=== PATIENT | male | born 1980 | race Caucasian/White ===

== ENCOUNTER → 2018-02-12 | Outpatient (CLI) | payer BC ==
--- NOTE | 2018-02-12 20:07 | REP ---
Clinical: Acute cough . Comparison: None . Technique: PA and lateral. Findings: The mediastinum and cardiac silhouette are normal. The lung youssef are clear and without acute consolidation, effusion, or pneumothorax. The skeletal structures are intact and normal. Impression: 1. No acute cardiopulmonary process. Electronically Signed by Jorge Guerrero MD 02/12/2018 07:58 P
== END ==
LOC: M WUC 19:27
PROVIDERS: ATTEND Physician Assistant
DX: J02.9 Acute pharyngitis, unspecified (principal); R05 Cough

== ENCOUNTER → 2018-02-13 | Outpatient (CLI) | payer BC ==
[2018-02-13 19:15] LABS: BASO % 0.2 % (0.0-1.0); HEMATOCRIT 47.6 % (42.0-52.0); LYMPH # 1.8 10^3/uL (1.5-4.5); LYMPH % 14.4 % (24.0-44.0); MEAN CORPUSCULAR HEMOGLOBIN 31.3 pg (27.0-33.0); MEAN CORPUSCULAR HGB CONC 33.6 g/dl (32.0-36.5); MONO # 0.7 10^3/uL (0.0-0.8); MONO % 5.4 % (0.0-5.0); NEUTROPHILS # 10.1 10^3/uL (1.8-7.7); NEUTROPHILS % 79.6 % (36.0-66.0); PLATELET COUNT, AUTOMATED 234 10^3/uL (150-450); RED BLOOD COUNT 5.12 10^6/uL (4.30-6.10); WHITE BLOOD COUNT 12.7 10^3/uL (4.0-10.0)
[2018-02-13 19:27] LABS: ALBUMIN 4.1 GM/DL (3.2-5.2); ALT/SGPT 42 U/L (12-78); BILIRUBIN,TOTAL 0.4 MG/DL (0.2-1.0); BLOOD UREA NITROGEN 10 MG/DL (7-18); CALCIUM LEVEL 8.7 MG/DL (8.5-10.1); CARBON DIOXIDE LEVEL 27 MEQ/L (21-32); CHLORIDE LEVEL 106 MEQ/L (98-107); CREATININE FOR GFR 0.75 MG/DL (0.70-1.30); GLOMERULAR FILTRATION RATE > 60.0 (>60); GLUCOSE, FASTING 93 MG/DL (70-100); POTASSIUM SERUM 4.5 MEQ/L (3.5-5.1); SODIUM LEVEL 140 MEQ/L (136-145); TOTAL PROTEIN 7.8 GM/DL (6.4-8.2)
== END ==
LOC: M WUC 17:41
PROVIDERS: ATTEND Physician Assistant
DX: R05 Cough (principal)

== ENCOUNTER → 2018-04-12 | Outpatient (CLI) | payer BC ==
[2018-04-12 18:10] LABS: ALBUMIN 3.9 GM/DL (3.2-5.2); ALT/SGPT 43 U/L (12-78); BILIRUBIN,TOTAL 0.5 MG/DL (0.2-1.0); BLOOD UREA NITROGEN 15 MG/DL (7-18); C REACTIVE PROTEIN QUANTITATIV 0.42 MG/DL (0.00-0.30); CALCIUM LEVEL 8.2 MG/DL (8.5-10.1); CARBON DIOXIDE LEVEL 28 MEQ/L (21-32); CHLORIDE LEVEL 103 MEQ/L (98-107); CHOLESTEROL LEVEL 205 MG/DL (<200); CHOLESTEROL RISK RATIO 6.029 (<5); CREATININE FOR GFR 0.91 MG/DL (0.70-1.30); GLOMERULAR FILTRATION RATE > 60.0 (>60); GLUCOSE, FASTING 94 MG/DL (70-100); HDL CHOLESTEROL 34 MG/DL (>40); LDL CHOLESTEROL 127 MG/DL (<100); NON-HDL-C 171 MG/DL; POTASSIUM SERUM 4.4 MEQ/L (3.5-5.1); SODIUM LEVEL 139 MEQ/L (136-145); THYROID STIMULATING HORMONE 0.391 uIU/ML (0.358-3.740); TOTAL PROTEIN 7.2 GM/DL (6.4-8.2); TRIGLYCERIDES LEVEL 218 MG/DL (<150)
[2018-04-12 19:00] LABS: BASO # 0.1 10^3/uL (0.0-0.2); BASO % 1.3 % (0.0-1.0); EOS # 0.1 10^3/uL (0.0-0.50); EOS % 1.1 % (0.0-3.0); HEMATOCRIT 47.6 % (42.0-52.0); HEMOGLOBIN 15.7 g/dl (13.5-17.5); LYMPH # 1.5 10^3/uL (1.5-4.5); LYMPH % 23.3 % (24.0-44.0); MEAN CORPUSCULAR HEMOGLOBIN 30.8 pg (27.0-33.0); MEAN CORPUSCULAR VOLUME 93.3 fl (80.0-96.0); MONO # 0.4 10^3/uL (0.0-0.8); MONO % 6.3 % (0.0-5.0); NEUTROPHILS # 4.4 10^3/uL (1.8-7.7); NEUTROPHILS % 67.8 % (36.0-66.0); PLATELET COUNT, AUTOMATED 206 10^3/uL (150-450); WHITE BLOOD COUNT 6.4 10^3/uL (4.0-10.0)
[2018-04-15 14:15] LABS: ANTINUCLEAR ANTIBODIES DIRECT Negative (Negative); Lyme Disease IgG/IgM Antibodie <0.91 ISR (0.00-0.90); Lyme Disease IgM Ab Quantitati <0.80 index (0.00-0.79); TISSUE TRANSGLUTAMINASE IgA <2 U/mL (0-3); TISSUE TRANSGLUTAMINASE IgG <2 U/mL (0-5)
== END ==
LOC: M WUC 10:09
PROVIDERS: ATTEND Physician Assistant
DX: M79.7 Fibromyalgia (principal); K58.2 Mixed irritable bowel syndrome; I10 Essential (primary) hypertension

== ENCOUNTER → 2018-05-28 | Outpatient (CLI) | payer BC ==
--- NOTE | 2018-06-02 17:34 | SLEEPHOME ---
DATE OF PROCEDURE: 05/28/2018 ORDERED BY: [facility] home sleep testing was performed due to concern for the obstructive sleep apnea syndrome. For testing, a nocturnal T3 respiratory monitoring device was used. Continuous record was made of pulse, oxygen saturation, airflow, chest, abdominal strain and body position. 9 hours and 59 minutes data were reviewed. There were 6 hours and 20 minutes marked as time in bed. During the interval marked time in bed, there were 33 respiratory events identified of 10 seconds in duration or greater for a respiratory event index of 5.2. The events were obstructive, primarily hypopneic. Baseline pulse rate 96 beats per minute, pulse rate ranged from 70 to 127. Baseline saturation measured 89%, saturations fell to 78% and the oxygen desaturation index was 4.6. Testing was performed in both the supine and nonsupine positions. IMPRESSION: Abnormal home sleep testing with repetitive respiratory events and oxygen desaturations to 78% with a respiratory event index of 5.2 is consistent with the obstructive sleep apnea syndrome. RECOMMENDATIONS: As the events were not postural and as home testing can underestimate the severity of the disease, referral for a formal sleep evaluation and in laboratory pressure titration is recommended.
== END ==
LOC: M SLEEP HO 13:00
PROVIDERS: ATTEND Nurse Practitioner Adult Health
DX: G47.30 Sleep apnea, unspecified (principal)

== ENCOUNTER → 2018-08-02 | Outpatient (CLI) | payer BC ==
[2018-08-02 14:00] LABS: BASO # 0.1 10^3/uL (0.0-0.2); EOS # 0.1 10^3/uL (0.0-0.50); EOS % 2.1 % (0.0-3.0); HEMATOCRIT 44.1 % (42.0-52.0); HEMOGLOBIN 14.7 g/dl (13.5-17.5); LYMPH # 1.4 10^3/uL (1.5-4.5); LYMPH % 22.9 % (24.0-44.0); MEAN CORPUSCULAR HEMOGLOBIN 30.8 pg (27.0-33.0); MEAN CORPUSCULAR HGB CONC 33.3 g/dl (32.0-36.5); MEAN CORPUSCULAR VOLUME 92.5 fl (80.0-96.0); MONO # 0.5 10^3/uL (0.0-0.8); MONO % 7.8 % (0.0-5.0); NEUTROPHILS # 4.1 10^3/uL (1.8-7.7); PLATELET COUNT, AUTOMATED 210 10^3/uL (150-450); RED BLOOD COUNT 4.77 10^6/uL (4.30-6.10); WHITE BLOOD COUNT 6.3 10^3/uL (4.0-10.0)
[2018-08-02 14:17] LABS: HEMOGLOBIN A1c 5.5 %
[2018-08-02 14:21] LABS: ALBUMIN 3.7 GM/DL (3.2-5.2); ALT/SGPT 60 U/L (12-78); BILIRUBIN,TOTAL 0.4 MG/DL (0.2-1.0); BLOOD UREA NITROGEN 10 MG/DL (7-18); CALCIUM LEVEL 8.6 MG/DL (8.5-10.1); CARBON DIOXIDE LEVEL 29 MEQ/L (21-32); CHLORIDE LEVEL 103 MEQ/L (98-107); CHOLESTEROL LEVEL 186 MG/DL (<200); CHOLESTEROL RISK RATIO 4.769 (<5); GLOMERULAR FILTRATION RATE > 60.0 (>60); GLUCOSE, FASTING 93 MG/DL (70-100); HDL CHOLESTEROL 39 MG/DL (>40); LDL CHOLESTEROL 79 MG/DL (<100); NON-HDL-C 147 MG/DL; POTASSIUM SERUM 4.6 MEQ/L (3.5-5.1); SODIUM LEVEL 138 MEQ/L (136-145); TRIGLYCERIDES LEVEL 341 MG/DL (<150)
== END ==
LOC: M WUC 09:27
PROVIDERS: ATTEND Physician Assistant
DX: E78.2 Mixed hyperlipidemia (principal)

== ENCOUNTER → 2018-11-05 | Outpatient (CLI) | payer BC ==
--- NOTE | 2018-11-15 01:09 | ECWPNPC ---
PATIENT NAME: BROCK ARTEAGA : 1980 GENDER: MALE VISIT DATE: 11/05/2018 DISCHARGE DATE: 11/05/18 1636 VISIT LOCKED DATE TIME: PHYSICIAN: ETHAN MURILLO MD RESOURCE: ETHAN MURILLO MD REASON FOR APPOINTMENT 1. SPINAL TAP PRE-OP HISTORY OF PRESENT ILLNESS PAIN SCREENING: PATIENT HAS A COMPLAINT OF ACUTE OR CHRONIC PAIN :YES 38 YEAR OLD MALE PATIENT WITH A HISTORY OF NEUROLOGICAL CHANGES. THE PATIENT STATES HE HAS BEEN EXPERIENCING HIS SYMPTOMS FOR THE LAST FEW YEARS. THE PATIENT WAS REFERRED TO US BY DR. ARREGUIN FOR A SPINAL TAP AND IS HERE TODAY FOR A PRE SEDATION PHYSICAL. , PATIENT DENIES UNEXPLAINABLE WEIGHT LOSS, FEVER, CHILLS, NEW CHANGES ON HIS URINARY OR BOWEL CONTROL. FALL RISK SCREENING: SCREENING :NO FALLS REPORTED IN THE LAST YEAR CURRENT MEDICATIONS TAKING GABAPENTIN 100 MG CAPSULE 1 CAPSULE ORALLY ONCE A DAY TAKING WELLBUTRIN TAKING IMIPRAMINE HCL 10 MG TABLET 1 TABLET ORALLY ONCE A DAY TAKING LAMOTRIGINE 100 MG TABLET 1 TABLET ORALLY ONCE A DAY TAKING TRAZODONE HCL 100 MG TABLET 1 TABLET AT BEDTIME ORALLY ONCE A DAY TAKING SEROQUEL 200 MG TABLET 1 TABLET AT BEDTIME ORALLY ONCE A DAY TAKING STRATTERA 40 MG CAPSULE 1 CAPSULE IN THE MORNING ORALLY ONCE A DAY TAKING PRAZOSIN HCL 5 MG CAPSULE 1 CAPSULE AT BEDTIME ORALLY ONCE A DAY TAKING CIALIS 10 MG TABLET 1 TABLET NEEDED ORALLY TAKING HYDROCODONE-ACETAMINOPHEN 5-325 MG TABLET 1 TABLET NEEDED ORALLY EVERY 6 HRS TAKING ATIVAN 2 2MG TABLET ORAL TAKING MULTIVITAMIN ADULTS 50+ - TABLET DIRECTED ORALLY TAKING ASPIRIN 81 81 MG TABLET DELAYED RELEASE 1 TABLET ORALLY ONCE A DAY TAKING LOSARTAN POTASSIUM 50 MG TABLET DIRECTED ORALLY TAKING PRAVASTATIN SODIUM 40 MG TABLET 1 TABLET ORALLY ONCE A DAY MEDICATION LIST REVIEWED AND RECONCILED WITH THE PATIENT PAST MEDICAL HISTORY URI ON CPAP ANXIETY DEPRESSION INSOMNIA PTSD ADD HTN DYSLIPIDEMIA MIGRAINE ALLERGIES N.K.D.A. SURGICAL HISTORY DENIES PAST SURGICAL HISTORY FAMILY HISTORY FATHER: ALIVE, DIAGNOSED WITH HYPERTENSION MOTHER: , DIABETES 5 BROTHER(S) , 5 SISTER(S) . FATHER-LEUKEMIA. SOCIAL HISTORY GENERAL: TOBACCO USE ARE YOU A:FORMER SMOKER HOW LONG HAS IT BEEN SINCE YOU LAST SMOKED?3-6 MONTHS PAIN CLINIC PFS, CLERGY, PUBLIC HEALTH REFERRALS HAS THE PATIENT BEEN EDUCATED REGARDING HIS/HER PLAN OF CARE?YES HAS THE PATIENT BEEN EDUCATED REGARDING PAIN, THE RISK FOR PAIN, THE IMPORTANCE OF EFFECTIVE PAIN MANAGEMENT, AND THE PAIN ASSESSMENT PROCESS?YES ADVANCE DIRECTIVE ADVANCE DIRECTIVE DISCUSSED WITH PATIENT:YES DECLINED EPISCOPAL [id number] RESTORATIONISM LANGUAGE LANGUAGES SPOKEN:LUXEMBOURGISH LEARNING BARRIERS / SPECIAL NEEDS BARRIERS TO LEARNING?NO HEARING IMPAIRED?NO VISION IMPAIRED?YES :CORRECTIVE LENSES COGNITIVELY IMPAIRED?NO READINESS TO LEARN?YES LEARNING PREFERENCES?NO LEARNING CAPABILITIES PRESENT?YES EMOTIONAL BARRIERS?NO SPECIAL DEVICES?NO HOSPITALIZATION/MAJOR DIAGNOSTIC PROCEDURE DENIES PAST HOSPITALIZATION REVIEW OF SYSTEMS REVIEWED BY: PROVIDER: ETHAN MURILLO MD . CONSTITUTIONAL: ANY CHANGE IN YOUR MEDICAL CONDITION? NO . CHILLS NO . FEVER NO . INFECTION: DO YOU HAVE NEW INFECTIONS? NO . DO YOU HAVE HISTORY OF MRSA? NO . MUSCULOSKELETAL: ANY NEW PATTERNS OF PAIN OR NUMBNESS? YES, PAIN IS 9/10 TO BACK . SYTEMIC LUPUS NO . GASTROENTEROLOGY: ANY NEW CHANGE IN BOWEL CONTROL? YES, PT C/O BLOODY DIARRHEA AND CONSTIPATION ,PCP IS AWARE . BARRETTS ESOPHAGUS NO . CIRRHOSIS NO . HEPATITIS NO . LIVER FAILURE NO . ACID REFLUX NO . UNEXPLAINED WEIGHT LOSS NO . GENITOURINARY: ANY NEW CHANGE IN BLADDER CONTROL? NO . IS THERE A CHANCE YOU COULD BE ? NO . HEMATOLOGY/LYMPH: DO YOU TAKE ANY BLOOD THINNERS? (FOR EXAMPLE- COUMADIN, PLAVIX, AGGRENOX, PLATEL, PRADAXA, OR XARELTO) NO . WHEN WAS YOUR LAST DOSE? DATE: TIME: . LOW PLATELET COUNT NO . SICKLE CELL DISEASE NO . VON WILLIEBRANDS NO . FACTOR V LEIDEN NO . THALLASEMIA NO . ANEMIA NO . EASY BRUISING NO . NEUROLOGY: HAVE YOU FALLEN IN THE PAST 12 MONTHS? YES, PT FELL MODAY FROM LOSS OF BALANCE, PT DENIES INJURIES . ANY NEW EXTREMITY NUMBNESS OR WEAKNESS? YES, BILAT FINGERS AND TOES NUMB . HEAD INJURY NO . DEMENTIA NO . CEREBRAL PALSY NO . MULTIPLE SCLEROSIS NO . DIZZINESS NO . HEADACHE NO . STROKES NO . VERTIGO NO . CARDIOLOGY: DO YOU HAVE A PACEMAKER OR DEFIBRILLATOR? NO . ANGINA NO . HEART ATTACK NO . HEART SURGERY NO . CONGESTIVE HEART FAILURE/FLUID OVERLOAD NO . CHEST PAIN NO . HIGH BLOOD PRESSURE NO . IRREGULAR HEART BEAT NO . RESPIRATORY: HAVE YOU BEEN SICK IN THE PAST WEEK? NO . FEVER NO . FLU LIKE SYMPTOMS? NO . CPAP NO . BYPAP NO . ASTHMA NO . EMPHYSEMA NO . CHRONIC LUNG DISEASES NO . SHORTNESS OF BREATH ON EXERTION NO . COUGH NO . SNORING NO . INTEGUMENTARY: DO YOU HAVE ANY RASHES OR OPEN SORES? NO . ALLERGIC/IMMUNO: ARE YOU ALLERGIC TO IV DYE? NO . ANY NEW ALLERGIES? NO . PSYCHIATRIC: DO YOU HAVE THOUGHTS OF HURTING YOURSELF OR SOMEONE ELSE? NO . ARE YOU ABUSED, NEGLECTED, OR IN AN UNSAFE ENVIRONMENT? NO . ENDOCRINOLOGY: ARE YOU DIABETIC? NO . THYROID DISORDER NO . OTHER: DO YOU NEED ANY PRESCRIPTIONS? YES, HYDROCODONE . IF YES, PLEASE LIST: ____ . ANY NEW PROBLEMS WITH YOUR MEDICATIONS? NO . WHEN DID YOU LAST EAT? ____ . WHEN DID YOU LAST DRINK? ____ . WHAT DID YOU LAST DRINK? ____ . NAME OF PERSON DRIVING YOU HOME? ____ . DO YOU HAVE ANY OTHER QUESTIONS OR CONCERNS NO . VITAL SIGNS WT 318.4 LBS, HT 68 IN, BMI 48.41 INDEX, BP 135/85 MM HG, HR 120 /MIN, RR 18 /MIN, TEMP 97.6 F, OXYGEN SAT % 96%, NA INITIALS AW 1521, REVIEWED BY: EM. EXAMINATION GENERAL EXAMINATION: PATIENT IS ALERT O X 3 AND COOPERATIVE. LUNGS CLEAR, TO AUSCULTATION. HEART: NO MURMURS OR GALLOPS; FACIAL CRANIAL NERVES ARE GROSSLY NORMAL. GOOD SYMMETRY OF FACIAL MUSCLE MOVEMENT. NORMAL VISUAL DE [place]. LEFT LEG IS WEAKER AT EXTENSION AND FLEXION. ANTALGIC GAIT. NOTES FROM DR. ARREGUIN IS IN THE PATIENT'S CHART. ASSESSMENTS NEUROLOGICAL SYMPTOMS - R29.90 (PRIMARY) TREATMENT NEUROLOGICAL SYMPTOMS CLINICAL NOTES: WE DISCUSSED SEVERAL ISSUES WITH MR. ARTEAGA'S CASE. THE PATIENT WILL COME IN FOR A SPINAL TAP IN THE NEXT FEW WEEKS. WE DISCUSSED THE BENEFITS AND RISKS OF THE PROCEDURE AND THE PATIENT WOULD LIKE TO PROCEED. INSTRUCTIONS WERE GIVEN, QUESTIONS WERE ANSWERED, PATIENT REPORTS UNDERSTANDING AND AGREES WITH THE PLAN. I, MADISYN LOPES, DOCUMENTED THE ABOVE INFORMATION ACTING A SCRIBE FOR DR. MURILLO. I HAVE REVIEWED THE ABOVE DOCUMENT, WRITTEN BY MADISYN RAHMAN AND I VERIFY THAT IT IS ACCURATE. . PROCEDURE CODES FA211 ESTABILISHED PATIENT [facility] FACILITY CHARGE Q6647 CURRENT MEDS W/DOSAGES DOCUMENTED [id number] PAIN ASSESS POS TOOL F/U PLAN DOC DISPOSITION & COMMUNICATION FOLLOW UP 3 WEEKS ELECTRONICALLY SIGNED BY ETHAN MURILLO MD, MD ON 11/14/2018 AT 12:03 PM EDT DISCLAIMER : THIS IS A VISIT SUMMARY EXTRACTED FROM THE [employer] CHART. IT IS NOT A COPY OF THE [employer] PROGRESS NOTE. WAQAS
== END ==
LOC: M PAIN 15:15
PROVIDERS: ATTEND Anesthesiology
DX: R29.90 Unspecified symptoms and signs involving the nervous system (principal); G47.33 Obstructive sleep apnea (adult) (pediatric); F41.9 Anxiety disorder, unspecified; F32.9 Major depressive disorder, single episode, unspecified; G47.00 Insomnia, unspecified; F43.10 Post-traumatic stress disorder, unspecified; I10 Essential (primary) hypertension; E78.5 Hyperlipidemia, unspecified; G43.909 Migraine, unspecified, not intractable, without status migrainosus; Z87.891 Personal history of nicotine dependence; Z79.82 Long term (current) use of aspirin; Z79.899 Other long term (current) drug therapy

== ENCOUNTER → 2018-11-13 | Outpatient (CLI) | payer BC ==
[~2018-11-13] MED LIST: LIDOCAINE 1% SDV INJ 30 ML VIAL As Ordered ONE; MIDAZOLAM INJ 2 MG/2 ML VIAL (J2250) As Ordered ONE; ONDANSETRON 4MG/2ML VIAL (J2405) As Ordered ONE; diphenhydrAMINE INJ 50MG/ML VIAL (J1200) As Ordered ONE; fentaNYL 100 MCG/2 ML INJECTION (J3010) As Ordered ONE
[2018-11-13 16:13] LABS: CSF TUBE# CELL CNT TUBE 3
[2018-11-13 16:14] LABS: APPEARANCE, CSF CLEAR (CLEAR); COLOR, CSF COLORLESS (COLORLESS); CSF TUBE# GLU TUBE 1; CSF TUBE# TP TUBE 1; GLUCOSE CSF 54 MG/DL (40-75); TOTAL PROTEIN,CSF 60 MG/DL (15-45)
[2018-11-20 08:13] LABS: OLIGOCLONAL BANDS, CSF Oligoclonal Bands (No Bands)
--- NOTE | 2018-11-29 01:50 | ECWPNPC ---
PATIENT NAME: BROCK ARTEAGA : 1980 GENDER: MALE VISIT DATE: 11/13/2018 DISCHARGE DATE: 11/13/18 1508 VISIT LOCKED DATE TIME: PHYSICIAN: ETHAN MURILLO MD RESOURCE: ETHAN MURILLO MD REASON FOR APPOINTMENT 1. SPINAL TAP HISTORY OF PRESENT ILLNESS HISTORY OF PRESENT ILLNESS: PAIN THE PATIENT DESCRIBES THE PAIN... FALL RISK SCREENING: SCREENING :NO FALLS REPORTED IN THE LAST YEAR CURRENT MEDICATIONS TAKING OMEPRAZOLE 40 MG CAPSULE DELAYED RELEASE 1 CAPSULE ORALLY ONCE A DAY TAKING MAGNESIUM 250 MG TABLET 1 TABLET WITH A MEAL ORALLY ONCE A DAY TAKING GABAPENTIN 100 MG CAPSULE 1 CAPSULE ORALLY ONCE A DAY TAKING WELLBUTRIN TAKING IMIPRAMINE HCL 10 MG TABLET 1 TABLET ORALLY ONCE A DAY TAKING LAMOTRIGINE 100 MG TABLET 1 TABLET ORALLY ONCE A DAY TAKING TRAZODONE HCL 100 MG TABLET 1 TABLET AT BEDTIME ORALLY ONCE A DAY TAKING SEROQUEL 200 MG TABLET 1 TABLET AT BEDTIME ORALLY ONCE A DAY TAKING STRATTERA 40 MG CAPSULE 1 CAPSULE IN THE MORNING ORALLY ONCE A DAY TAKING PRAZOSIN HCL 5 MG CAPSULE 1 CAPSULE AT BEDTIME ORALLY ONCE A DAY TAKING CIALIS 10 MG TABLET 1 TABLET NEEDED ORALLY TAKING HYDROCODONE-ACETAMINOPHEN 5-325 MG TABLET 1 TABLET NEEDED ORALLY EVERY 6 HRS TAKING ATIVAN 2 2MG TABLET ORAL TAKING MULTIVITAMIN ADULTS 50+ - TABLET DIRECTED ORALLY TAKING ASPIRIN 81 81 MG TABLET DELAYED RELEASE 1 TABLET ORALLY ONCE A DAY TAKING LOSARTAN POTASSIUM 50 MG TABLET DIRECTED ORALLY TAKING PRAVASTATIN SODIUM 40 MG TABLET 1 TABLET ORALLY ONCE A DAY MEDICATION LIST REVIEWED AND RECONCILED WITH THE PATIENT PAST MEDICAL HISTORY RUI ON CPAP ANXIETY DEPRESSION INSOMNIA PTSD ADD HTN DYSLIPIDEMIA MIGRAINE ALLERGIES NO[ALLERGIES VERIFIED] SURGICAL HISTORY NO SURGICAL HISTORY DOCUMENTED. FAMILY HISTORY FATHER: ALIVE, DIAGNOSED WITH HYPERTENSION MOTHER: , DIABETES 5 BROTHER(S) , 5 SISTER(S) . FATHER-LEUKEMIA. SOCIAL HISTORY GENERAL: TOBACCO USE ARE YOU A:FORMER SMOKER HOW LONG HAS IT BEEN SINCE YOU LAST SMOKED?3-6 MONTHS PAIN CLINIC PFS, CLERGY, PUBLIC HEALTH REFERRALS HAS THE PATIENT BEEN EDUCATED REGARDING HIS/HER PLAN OF CARE?YES HAS THE PATIENT BEEN EDUCATED REGARDING PAIN, THE RISK FOR PAIN, THE IMPORTANCE OF EFFECTIVE PAIN MANAGEMENT, AND THE PAIN ASSESSMENT PROCESS?YES ADVANCE DIRECTIVE ADVANCE DIRECTIVE DISCUSSED WITH PATIENT:YES DECLINED CHRISTIANITY [id number] CONFUCIANIST LANGUAGE LANGUAGES SPOKEN:ALBANIAN LEARNING BARRIERS / SPECIAL NEEDS BARRIERS TO LEARNING?NO HEARING IMPAIRED?NO VISION IMPAIRED?YES COGNITIVELY IMPAIRED?NO :CORRECTIVE LENSES READINESS TO LEARN?YES LEARNING PREFERENCES?NO LEARNING CAPABILITIES PRESENT?YES EMOTIONAL BARRIERS?NO SPECIAL DEVICES?NO HOSPITALIZATION/MAJOR DIAGNOSTIC PROCEDURE NO HOSPITALIZATION HISTORY. REVIEW OF SYSTEMS REVIEWED BY: PROVIDER: . CONSTITUTIONAL: ANY CHANGE IN YOUR MEDICAL CONDITION? NO . CHILLS NO . FEVER NO . INFECTION: DO YOU HAVE NEW INFECTIONS? NO . DO YOU HAVE HISTORY OF MRSA? NO . MUSCULOSKELETAL: ANY NEW PATTERNS OF PAIN OR NUMBNESS? NO . GASTROENTEROLOGY: ANY NEW CHANGE IN BOWEL CONTROL? IBS FOR 3 WEEKS WITH BLOOD . GENITOURINARY: ANY NEW CHANGE IN BLADDER CONTROL? NO . IS THERE A CHANCE YOU COULD BE ? NO . HEMATOLOGY/LYMPH: DO YOU TAKE ANY BLOOD THINNERS? (FOR EXAMPLE- COUMADIN, PLAVIX, AGGRENOX, PLATEL, PRADAXA, OR XARELTO) NO . WHEN WAS YOUR LAST DOSE? DATE: TIME: . NEUROLOGY: HAVE YOU FALLEN IN THE PAST 12 MONTHS? NO . ANY NEW EXTREMITY NUMBNESS OR WEAKNESS? NO . CARDIOLOGY: DO YOU HAVE A PACEMAKER OR DEFIBRILLATOR? NO . RESPIRATORY: HAVE YOU BEEN SICK IN THE PAST WEEK? NO . FEVER NO . FLU LIKE SYMPTOMS? NO . COUGH NO . INTEGUMENTARY: DO YOU HAVE ANY RASHES OR OPEN SORES? NO . ALLERGIC/IMMUNO: ARE YOU ALLERGIC TO IV DYE? NO . ANY NEW ALLERGIES? NO . PSYCHIATRIC: DO YOU HAVE THOUGHTS OF HURTING YOURSELF OR SOMEONE ELSE? NO . ARE YOU ABUSED, NEGLECTED, OR IN AN UNSAFE ENVIRONMENT? NO . ENDOCRINOLOGY: ARE YOU DIABETIC? NO . OTHER: DO YOU NEED ANY PRESCRIPTIONS? NO . IF YES, PLEASE LIST: ____ . ANY NEW PROBLEMS WITH YOUR MEDICATIONS? NO . WHEN DID YOU LAST EAT? ____[phone] . WHEN DID YOU LAST DRINK? ____ . WHAT DID YOU LAST DRINK? ____929 . NAME OF PERSON DRIVING YOU HOME? ____AVELINO BROOKS . DO YOU HAVE ANY OTHER QUESTIONS OR CONCERNS NO . VITAL SIGNS WT 319.6 LBS, HT 68 IN, BMI 48.59 INDEX, BP 146/96 MM HG, HR 115 /MIN, RR 18 /MIN, TEMP 97.0 F, OXYGEN SAT % 96%, SAFE IN ENV? (Y/N) T, NA INITIALS AW 1309. ASSESSMENTS ENCOUNTER FOR LUMBAR PUNCTURE - Z01.89 (PRIMARY) MS PROTOCOL. TREATMENT ENCOUNTER FOR LUMBAR PUNCTURE CLINICAL NOTES: SPINAL TAP WITH IV SEDATION - PLEASE SEE [employer]. PROCEDURE CODES 37242 LUMBAR PUNCTURE 13691 MOD SED SAME PHYS/QHP 5/>YRS 76491 MOD SED SAME PHYS/QHP EA DISPOSITION & COMMUNICATION FOLLOW UP REASON: F/UP WITH NEUROLOGIST ELECTRONICALLY SIGNED BY ETHAN MURILLO MD, MD ON 11/28/2018 AT 09:49 AM EDT DISCLAIMER : THIS IS A VISIT SUMMARY EXTRACTED FROM THE [employer] CHART. IT IS NOT A COPY OF THE [employer] PROGRESS NOTE. MTDD
== END ==
LOC: M PAIN 13:00
PROVIDERS: ATTEND Anesthesiology
DX: Z01.89 Encounter for other specified special examinations (principal); G47.33 Obstructive sleep apnea (adult) (pediatric); F41.9 Anxiety disorder, unspecified; F32.9 Major depressive disorder, single episode, unspecified; G47.00 Insomnia, unspecified; F43.10 Post-traumatic stress disorder, unspecified; I10 Essential (primary) hypertension; E78.5 Hyperlipidemia, unspecified; G43.909 Migraine, unspecified, not intractable, without status migrainosus; Z87.891 Personal history of nicotine dependence; Z79.891 Long term (current) use of opiate analgesic; Z79.899 Other long term (current) drug therapy
CPT/HCPCS: 36415; 62270; 82784; 82945; 83916; 84157; 87070; 87102; 87205; 87252; 87483; 88108; 88313; 89050; 99152; 99153; J1200; J2250; J2405; J3010

== ENCOUNTER → 2019-01-17 | Outpatient (CLI) | payer BC ==
[2019-01-17 18:00] LABS: ALBUMIN 3.9 GM/DL (3.2-5.2); ALT/SGPT 87 U/L (12-78); BILIRUBIN,TOTAL 0.5 MG/DL (0.2-1.0); BLOOD UREA NITROGEN 15 MG/DL (7-18); CALCIUM LEVEL 9.3 MG/DL (8.5-10.1); CARBON DIOXIDE LEVEL 31 MEQ/L (21-32); CHLORIDE LEVEL 102 MEQ/L (98-107); CHOLESTEROL LEVEL 189 MG/DL (<200); CHOLESTEROL RISK RATIO 4.295 (<5); CREATININE FOR GFR 0.89 MG/DL (0.70-1.30); GLOMERULAR FILTRATION RATE > 60.0 (>60); GLUCOSE, FASTING 76 MG/DL (70-100); HDL CHOLESTEROL 44 MG/DL (>40); LDL CHOLESTEROL 89 MG/DL (<100); NON-HDL-C 145 MG/DL; POTASSIUM SERUM 4.2 MEQ/L (3.5-5.1); SODIUM LEVEL 140 MEQ/L (136-145); TOTAL PROTEIN 7.6 GM/DL (6.4-8.2); TRIGLYCERIDES LEVEL 281 MG/DL (<150)
[2019-01-17 18:26] LABS: HEMOGLOBIN A1c 5.7 %
== END ==
LOC: M WUC 13:48
PROVIDERS: ATTEND Physician Assistant
DX: E78.2 Mixed hyperlipidemia (principal); Z68.39 Body mass index [BMI] 39.0-39.9, adult

== ENCOUNTER → 2019-06-09 | Outpatient (CLI) | payer BC ==
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
== END ==
LOC: M PAIN 09:15
PROVIDERS: ATTEND Nurse Practitioner Family
DX: G89.4 Chronic pain syndrome (principal); M54.5 Low back pain

== ENCOUNTER → 2019-07-11 | Outpatient (CLI) | payer BC ==
[2019-07-11 12:57] LABS: BASO # 0.1 10^3/uL (0.0-0.2); BASO % 0.9 % (0.0-1.0); EOS # 0.1 10^3/uL (0.0-0.5); HEMOGLOBIN 15.3 g/dl (13.5-17.5); LYMPH % 24.8 % (24.0-44.0); MEAN CORPUSCULAR HEMOGLOBIN 30.2 pg (27.0-33.0); MEAN CORPUSCULAR HGB CONC 31.9 g/dl (32.0-36.5); MEAN CORPUSCULAR VOLUME 94.7 fl (80.0-96.0); MONO # 0.5 10^3/uL (0.0-0.8); MONO % 6.7 % (0.0-5.0); NEUTROPHILS # 5.3 10^3/uL (1.5-8.5); NEUTROPHILS % 66.2 % (36.0-66.0); PLATELET COUNT, AUTOMATED 229 10^3/uL (150-450); RED BLOOD COUNT 5.07 10^6/uL (4.30-6.10); WHITE BLOOD COUNT 7.9 10^3/uL (4.0-10.0)
[2019-07-11 13:11] LABS: ALBUMIN 3.8 GM/DL (3.2-5.2); ALT/SGPT 55 U/L (12-78); BILIRUBIN,TOTAL 0.5 MG/DL (0.2-1.0); BLOOD UREA NITROGEN 11 MG/DL (7-18); C REACTIVE PROTEIN QUANTITATIV 0.48 MG/DL (0.00-0.30); CALCIUM LEVEL 8.6 MG/DL (8.5-10.1); CARBON DIOXIDE LEVEL 28 MEQ/L (21-32); CHLORIDE LEVEL 101 MEQ/L (98-107); CHOLESTEROL LEVEL 193 MG/DL (<200); CHOLESTEROL RISK RATIO 4.825 (<5); GLOMERULAR FILTRATION RATE > 60.0 (>60); GLUCOSE, FASTING 88 MG/DL (70-100); HDL CHOLESTEROL 40 MG/DL (>40); LDL CHOLESTEROL 106 MG/DL (<100); NON-HDL-C 153 MG/DL; POTASSIUM SERUM 4.2 MEQ/L (3.5-5.1); RHEUMATOID FACTOR QUANT < 10.0 IU/ML (<15.0); SODIUM LEVEL 138 MEQ/L (136-145); TOTAL PROTEIN 7.4 GM/DL (6.4-8.2); TRIGLYCERIDES LEVEL 234 MG/DL (<150)
[2019-07-11 13:12] LABS: HEMOGLOBIN A1c 6.1 %
[2019-07-11 13:42] LABS: ERYTHROCYTE SEDIMENTATION RATE 23 mm/hr (0-15)
[2019-07-13 11:12] LABS: TOTAL 25(OH) VITAMIN D 32.1 NG/ML (30.0-100.0)
== END ==
LOC: M WUC 09:26
PROVIDERS: ATTEND Physician Assistant
DX: E78.2 Mixed hyperlipidemia (principal); R73.01 Impaired fasting glucose; I10 Essential (primary) hypertension

== ENCOUNTER → 2020-04-27 | Outpatient (CLI) | payer BC ==
--- NOTE | 2020-04-28 01:59 | ECWPNPC ---
PATIENT NAME: BROCK ARTEAGA : 1980 GENDER: MALE VISIT DATE: 04/27/2020 DISCHARGE DATE: 04/27/20 1039 VISIT LOCKED DATE TIME: PHYSICIAN: JANEL PIMENTEL RESOURCE: JANEL PIMENTEL REASON FOR APPOINTMENT 1. NEED MRI [facility]; [phone] 2. PAT DONE HISTORY OF PRESENT ILLNESS DEPRESSION SCREENING: PHQ-9 LITTLE INTEREST OR PLEASURE IN DOING THINGSSEVERAL DAYS FEELING DOWN, DEPRESSED, OR HOPELESSSEVERAL DAYS TROUBLE FALLING OR STAYING ASLEEP, OR SLEEPING TOO MUCHMORE THAN HALF THE DAYS FEELING TIRED OR HAVING LITTLE ENERGYNEARLY EVERY DAY POOR APPETITE OR OVEREATING NEARLY EVERY DAY FEELING BAD ABOUT YOURSELF-OR THAT YOU ARE A FAILURE OR HAVE LET YOURSELF OR YOUR FAMILY DOWN SEVERAL DAYS TROUBLE CONCENTRATING ON THINGS, SUCH READING THE NEWSPAPER OR WATCHING TELEVISION NEARLY EVERY DAY MOVING OR SPEAKING SO SLOWLY THAT OTHER PEOPLE COULD HAVE NOTICED. OR THE OPPOSITE- BEING SO FIDGETY OR RESTLESS THAT YOU HAVE BEEN MOVING AROUND A LOT MORE THAN USUALSEVERAL DAYS THOUGHTS THAT YOU WOULD BE BETTER OFF , OR OF HURTING YOURSELF IN SOME WAY?NOT AT ALL TOTAL SCORE:15 INTERPRETATIONMODERATELY SEVERE DEPRESSION PHQ-2 (2015 EDITION) LITTLE INTEREST OR PLEASURE IN DOING THINGS?SEVERAL DAYS FEELING DOWN, DEPRESSED, OR HOPELESS?SEVERAL DAYS TOTAL SCORE2 GENERAL: 39-YEAR-OLD GENTLEMAN BEING SEEN FOR FOLLOW-UP. INITIAL VISIT WAS 1 YEAR AGO. HE LOST INSURANCE. CONTINUES TO SUFFER FROM SIGNIFICANT BACK PAIN. ALSO REPORTING GENERALIZED PAIN. REVIEWED MRI OF LUMBOSACRAL SPINE AND DISCUSSED TREATMENT OPTIONS. HAS SIGNIFICANT PATHOLOGY IN THE LUMBAR REGION. STATES HE SAW DYAN BERRIOS IN REGARDS TO SURGICAL EVALUATION FOR BACK PAIN OVER A YEAR AGO AND IT WAS SUGGESTED THAT HE TRY INTERVENTIONAL THERAPY. CURRENTLY TAKING HYDROCODONE 5/325 PRESCRIBED BY PRIMARY CARE. HE IS TAKING 1 AT NIGHTTIME CURRENTLY. -. FALL RISK SCREENING: SCREENING :TWO OR MORE FALLS WITHOUT INJURY IN THE PAST YEAR PAIN SCREENING: PATIENT HAS A COMPLAINT OF ACUTE OR CHRONIC PAIN :YES LOCATION OF PAIN:NECK, UPPER BACK, MID BACK, LOW BACK INTENSITY OF PAIN (SCALE OF 1 TO 10):9 WHAT DOES YOUR PAIN FEEL LIKE:SHOOTING DURATION:CONTINOUS, CONSTANT, ALL DAY PAIN IS INCREASED BY:ACTIVITIES PAIN IS DECREASED BY:OTHERS HEAT AND ICE NURSING NOTE: -. PAIN CENTER INTAKE QUESTIONS: DO YOU HAVE A HISTORY OF MRSA? :NO DO YOU TAKE A BLOOD THINNERS? :NO DO YOU HAVE ANY BLEEDING DISORDERS? :NO ANY NEW NUMBNESS OR WEAKNESS IN YOUR LEGS OR ARMS? :NO ANY PACEMAKER,DEFIBRILLATOR, OR DORSAL COLUMN STIMULATOR? :NO DO YOU HAVE ANY RASHES OR OPEN SORES? :NO ARE YOU ALLERGIC TO IV DYE? :NO ARE YOU DIABETIC? :NO ANY NEW PROBLEMS WITH YOUR MEDICATIONS? :NO HAVE YOU RECEIVED A VACCINE IN THE PAST 30 DAYS? :NO DO YOU PLAN TO RECEIVE A VACCINE IN THE NEXT 21 DAYS? :NO DO YOU NEED ANY PRESCRIPTION? :NO DO YOU TAKE ANY IMMUNOSUPPRESSIVE MEDICATIONS? :NO DO YOU HAVE ANY KIDNEY OR LIVER DISEASE? :NO IS THERE A CHANCE YOU COULD BE ? :NO ARE YOU BREAST FEEDING? :NO CURRENT MEDICATIONS TAKING OMEPRAZOLE 40 MG CAPSULE DELAYED RELEASE 1 CAPSULE ORALLY ONCE A DAY TAKING MAGNESIUM 250 MG TABLET 1 TABLET WITH A MEAL ORALLY ONCE A DAY TAKING GABAPENTIN 300 MG CAPSULE 1 CAPSULE ORALLY ONE IN AM, ONE AT NOON, ONE AT DINNER, TWO AT BEDTIME TAKING WELLBUTRIN 100 MG TABLET ORALLY BID TAKING LAMOTRIGINE 100 MG TABLET 1 TABLET ORALLY BID TAKING TRAZODONE HCL 100 MG TABLET 3 TABLETS AT BEDTIME ORALLY ONCE A DAY TAKING SEROQUEL 100 MG TABLET 4 TABLETS AT BEDTIME ORALLY ONCE A DAY TAKING STRATTERA 25 MG CAPSULE 1 CAPSULE IN THE MORNING ORALLY ONCE A DAY TAKING PRAZOSIN HCL 5 MG CAPSULE 1 CAPSULE AT BEDTIME ORALLY ONCE A DAY TAKING HYDROCODONE-ACETAMINOPHEN 5-325 MG TABLET 2 TABLETS ORALLY BEFORE BEDTIME TAKING ATIVAN 2 2MG TABLET ORAL THREE TIMES DAILY NEEDED TAKING MULTIVITAMIN ADULTS 50+ - TABLET DIRECTED ORALLY TAKING ASPIRIN 81 81 MG TABLET DELAYED RELEASE 1 TABLET ORALLY ONCE A DAY TAKING LOSARTAN POTASSIUM 50 MG TABLET 2 TABLETS ORALLY ONCE A DAY TAKING PRAVASTATIN SODIUM 40 MG TABLET 2 TABLETS ORALLY ONCE A DAY TAKING VITAMIN B-12 1000 MCG TABLET CHEWABLE DIRECTED ORALLY TAKING VITAMIN C 500 MG CAPSULE DIRECTED ORALLY TAKING POTASSIUM 99 MG TABLET 1 TABLET ORALLY ONCE A DAY TAKING CO Q 10 100 MG CAPSULE 1 CAPSULE WITH A MEAL ORALLY ONCE A DAY TAKING CALCIUM + D3 600-800 MG-UNIT TABLET 1 TABLET WITH A MEAL ORALLY ONCE A DAY TAKING GRAPE SEED EXTRACT 100 MG CAPSULE DIRECTED ORALLY TAKING SERTRALINE HCL 25 MG TABLET 1 TABLET ORALLY ONCE A DAY NOT-TAKING IMIPRAMINE HCL 10 MG TABLET 1 TABLET ORALLY BID NOT-TAKING CIALIS 10 MG TABLET 1 TABLET NEEDED ORALLY MEDICATION LIST REVIEWED AND RECONCILED WITH THE PATIENT PAST MEDICAL HISTORY URI ON CPAP ANXIETY DEPRESSION INSOMNIA PTSD ADD HTN DYSLIPIDEMIA MIGRAINE FIBROMYALGIA CARPAL TUNNEL RHEUMATOID ARTHRITIS GERD KIDNEY STONES ALLERGIES BEES: FACE SWELLS - ALLERGY CUT GRASS: HIVES SOCIAL HISTORY GENERAL: TOBACCO USE ARE YOU A:FORMER SMOKER HOW LONG HAS IT BEEN SINCE YOU LAST SMOKED?6-12 MONTHS LATEX QUESTIONNAIRE LATEX ALLERGY : HAVE YOU EVER DEVELOPED ANY TYPE OF REACTION AFTER HANDLING LATEX PRODUCTS SUCH RUBBER GLOVES, CONDOMS, DIAPHRAGMS, BALLOONS, SOCKS, OR UNDERWEAR?NO LATEX ALLERGY : HAVE YOU EVER DEVELOPED ANY TYPE OF REACTION DURING OR AFTER DENTAL APPOINTMENT, VAGINAL/RECTAL EXAMINATION, SURGICAL PROCEDURE, OR ANY OTHER EXPOSURE?NO LATEX RISK : HAVE YOU EVER HAD ANY DIFFICULTY BREATHING OR HIVES AFTER EATING OR HANDLING ANY FRUITS, OR VEGETABLES; SUCH KIWI, BANANAS, STONE FRUITS, OR CHESTNUTSNO LATEX RISK : DO YOU HAVE A PREVIOUS PERSONAL HISTORY OF MORE THAN NINE SURGERIES, SPINA BIFIDA, OR REPEATED CATHERIZATIONS? NO LATEX RISK : ARE YOU FREQUENTLY EXPOSED TO LATEX PRODUCTS IN YOUR OCCUPATION?NO DATE ASKED : 04/27/2020 ALCOHOL USE: YES. ALCOHOL SCREENING DID YOU HAVE A DRINK CONTAINING ALCOHOL IN THE PAST YEAR?YES HOW OFTEN DID YOU HAVE SIX OR MORE DRINKS ON ONE OCCASION IN THE PAST YEAR?NEVER (0 POINTS) HOW MANY DRINKS DID YOU HAVE ON A TYPICAL DAY WHEN YOU WERE DRINKING IN THE PAST YEAR?1 OR 2 (0 POINTS) HOW OFTEN DID YOU HAVE A DRINK CONTAINING ALCOHOL IN THE PAST YEAR?TWO TO FOUR TIMES A MONTH (2 POINTS) POINTS2 INTERPRETATIONNEGATIVE RECREATIONAL DRUG USE: YES DRUG USE?YES MEDICAL MARIJUANA HOW OFTEN AND HOW MUCH? ABOUT EVERY OTHER DAY, HASN'T USED IN A WHILE, CAN'T AFFORD IT. CAFFEINE CAFFEINE USE?YES HOW OFTEN AND HOW MUCH? 3 PER DAY EPISCOPALIAN [id number] QUAKER LANGUAGE LANGUAGES SPOKEN:ALBANIAN EDUCATION LEVEL OF EDUCATION:NOT FINISHED COLLEGE GED LEARNING BARRIERS / SPECIAL NEEDS CHANGE FROM LAST VISIT?NO BARRIERS TO LEARNING?NO HEARING IMPAIRED?NO STATES HEARING IS SOMEWHAT IMPAIRED, ESPECIALLY IF THERE IS A LOT OF BACKGROUND NOISE, IE AT A RESTAURANT VISION IMPAIRED?YES WEARS GLASSES :CORRECTIVE LENSES COGNITIVELY IMPAIRED?NO READINESS TO LEARN?YES LEARNING PREFERENCES?NO LEARNING CAPABILITIES PRESENT?YES EMOTIONAL BARRIERS?NO SPECIAL DEVICES?NO NUCLEAR MEDICINE CHIEF TECHNOLOGIST NEEDED?NO DOMESTIC VIOLENCE DO YOU FEEL SAFE IN YOUR ENVIRONMENT?YES 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 DIET: REGULAR. MARITAL STATUS: SINGLE. OTHERS AT HOME: LIVES WITH OTHERS, APARTMENT. PATIENT DESCRIBES PAIN :ACHING, HAVE IT ALL THE TIME, STABBING WAKES FROM SLEEP FROM 0-10, WHAT LEVEL IS YOUR PAIN TODAY?8 PRECIPITATING FACTORS WORSE WITH ACTIVITY ALLEVIATING FACTORS HYDROCODONE - HAS THE PATIENT BEEN EDUCATED REGARDING HIS/HER PLAN OF CARE?YES HAS THE PATIENT BEEN EDUCATED REGARDING PAIN, THE RISK FOR PAIN, THE IMPORTANCE OF EFFECTIVE PAIN MANAGEMENT, AND THE PAIN ASSESSMENT PROCESS?YES HOUSING: RENTS APARTMENT. ADVANCE DIRECTIVE ADVANCE DIRECTIVE DISCUSSED WITH PATIENT:YES PT DOCUMENTED THAT HE DOES NOT HAVE HCP, NO ASSITANCE WITH PAPERWORK AT THIS TIME REVIEW OF SYSTEMS CONSTITUTIONAL: ANY RECENT FEVER NO . CHILLS NO . WEIGHT CHANGE OF UNKNOWN REASONS NO . GASTROENTEROLOGY: NEW UNEXPLAINABLE CHANGES IN BOWEL CONTROL NO . CONSTIPATION NO . GENITOURINARY: ANY NEW CHANGE IN BLADDER CONTROL? NO . NEUROLOGY: NEW ONSET DIZZINESS OR NEUROLOGICAL CHANGES NOT MENTIONED NO . NEW NUMBNESS OR PAIN PATTERNS NOT MENTIONED AND PERTINENT TO TODAY'S VISIT NO . CARDIOLOGY: NEW CHEST PRESSURE NO . PATIENT DENIES NO . RESPIRATORY: UNEXPLAINABLE COUGH NO . NEW SHORTNESS OF BREATH NO . VITAL SIGNS WT 337 LBS, HT 68 IN, BMI 51.24 INDEX, BP 140/71 MM HG, HR 129 /MIN, RR 18 /MIN, TEMP 97.5 F, OXYGEN SAT % 97, SAFE IN ENV? (Y/N) YEST.SHOBHA GIBSON. EXAMINATION GENERAL EXAMINATION: GENERALNO ACUTE DISTRESS, WELL NOURISHED AND HYDRATED. PSYCHAPPROPRIATE MOOD AND AFFECT . NECK:NO LYMPHADENOPATHY, SUPPLE. LUNGS:CLEAR TO AUSCULTATION BILATERALLY, NO WHEEZES, RHONCHI, RALES. HEART:NO MURMURS, REGULAR RATE AND RHYTHM. MUSCULOSKELETAL:WEAKNESS NOTED OVER BILATERAL LOWER EXTREMITIES . LUMBAR: PALPATION: + FOR PAIN OVER L/S SPINE. + FOR PAIN OVER L/S PARSPINALS. NEUROLOGIC EXAM:NORMAL SENSATION TO LIGHT TOUCH LOWER EXTREMITIES . DIAGNOSTIC TESTS REVIEWEDMRI L/S SPINE 2019 . ASSESSMENTS LUMBAR SPONDYLOSIS - M47.816 (PRIMARY) PROTRUSION OF LUMBAR INTERVERTEBRAL DISC - M51.26 TREATMENT LUMBAR SPONDYLOSIS SALINE LOCK (ORDERED FOR 05/04/2020) MEDICATION: OXYCODONE HCL TAB 10MG ORALLY (ORDERED FOR 05/04/2020) MEDICATION: VALIUM TAB 10MG ORALLY (DIAZEPAM) (ORDERED FOR 05/04/2020) NOTES: LUMBAR EPIDURAL STEROID INJECTION PRINTED AND REVIEWED PRE PROCEDURE WITH PATIENT KEE GIBSON. PROCEDURE CODES FA211 ESTABILISHED PATIENT [facility] CHARGE DISPOSITION & COMMUNICATION FOLLOW UP POSTPROCEDURE (REASON: LUMBAR EPIDURAL STEROID INJECTION) ELECTRONICALLY SIGNED BY FREDERICK EVANS ON 04/27/2020 AT 01:30 PM EST DISCLAIMER : THIS IS A VISIT SUMMARY EXTRACTED FROM THE [employer] CHART. IT IS NOT A COPY OF THE [employer] PROGRESS NOTE. WAQAS
== END ==
LOC: M PAIN 09:30
PROVIDERS: ATTEND Nurse Practitioner Family
DX: M47.816 Spondylosis without myelopathy or radiculopathy, lumbar region (principal); M51.26 Other intervertebral disc displacement, lumbar region; G47.33 Obstructive sleep apnea (adult) (pediatric); G47.00 Insomnia, unspecified; G43.909 Migraine, unspecified, not intractable, without status migrainosus; M79.7 Fibromyalgia; K21.9 Gastro-esophageal reflux disease without esophagitis; Z86.59 Personal history of other mental and behavioral disorders; Z87.891 Personal history of nicotine dependence; Z91.030 Bee allergy status; E66.01 Morbid (severe) obesity due to excess calories; Z68.43 Body mass index [BMI] 50.0-59.9, adult; Z79.82 Long term (current) use of aspirin; Z79.891 Long term (current) use of opiate analgesic; Z79.899 Other long term (current) drug therapy

== ENCOUNTER → 2020-05-12 | Outpatient (CLI) | payer BC ==
[2020-05-12 16:18] LABS: BASO # 0.1 10^3/uL (0.0-0.2); BASO % 0.7 % (0.0-1.0); EOS # 0.1 10^3/uL (0.0-0.5); EOS % 1.2 % (0.0-3.0); HEMATOCRIT 48.7 % (42.0-52.0); HEMOGLOBIN 15.8 g/dl (13.5-17.5); LYMPH # 2.5 10^3/uL (1.5-5.0); MEAN CORPUSCULAR HEMOGLOBIN 30.7 pg (27.0-33.0); MEAN CORPUSCULAR HGB CONC 32.4 g/dl (32.0-36.5); MEAN CORPUSCULAR VOLUME 94.7 fl (80.0-96.0); MONO # 0.7 10^3/uL (0.0-0.8); MONO % 8.6 % (2.0-8.0); NEUTROPHILS # 4.8 10^3/uL (1.5-8.5); NEUTROPHILS % 59.1 % (36.0-66.0); PLATELET COUNT, AUTOMATED 237 10^3/uL (150-450); RED BLOOD COUNT 5.14 10^6/uL (4.30-6.10); WHITE BLOOD COUNT 8.2 10^3/uL (4.0-10.0)
[2020-05-12 16:46] LABS: ALBUMIN 4.1 GM/DL (3.2-5.2); ALT/SGPT 60 U/L (12-78); BILIRUBIN,TOTAL 0.5 MG/DL (0.2-1.0); BLOOD UREA NITROGEN 14 MG/DL (7-18); CARBON DIOXIDE LEVEL 32 MEQ/L (21-32); CHLORIDE LEVEL 102 MEQ/L (98-107); CHOLESTEROL LEVEL 175 MG/DL (<200); CREATININE FOR GFR 0.88 MG/DL (0.70-1.30); FREE T4 1.04 NG/DL (0.76-1.46); GLOMERULAR FILTRATION RATE > 60.0 (>60); GLUCOSE, FASTING 108 MG/DL (70-100); HDL CHOLESTEROL 35 MG/DL (>40); LDL CHOLESTEROL 79 MG/DL (<100); NON-HDL-C 140 MG/DL; SODIUM LEVEL 140 MEQ/L (136-145); THYROID STIMULATING HORMONE 0.939 uIU/ML (0.358-3.740); TOTAL PROTEIN 7.6 GM/DL (6.4-8.2); TRIGLYCERIDES LEVEL 305 MG/DL (<150)
[2020-05-12 17:01] LABS: TOTAL 25(OH) VITAMIN D 28.9 NG/ML (30.0-100.0)
[2020-05-12 17:02] LABS: FOLATE > 24.0 NG/ML; VITAMIN B12 LEVEL 1227 PG/ML
[2020-05-12 18:18] LABS: HEMOGLOBIN A1c 5.5 %
== END ==
LOC: M WUC 10:13
PROVIDERS: ATTEND Physician Assistant
DX: I10 Essential (primary) hypertension (principal); E78.2 Mixed hyperlipidemia
CPT/HCPCS: 36415; 80053; 80061; 82306; 82607; 82746; 83036; 84439; 84443; 85025; 86038; G0103

== ENCOUNTER → 2020-05-12 | Outpatient (CLI) | payer BC | LOC: M LABSMTC 09:57 | PROVIDERS: ATTEND Anesthesiology | DX: Z11.52 Encounter for screening for COVID-19 (principal) ==

== ENCOUNTER → 2020-05-17 | Outpatient (CLI) | payer BC ==
[~2020-05-17] MED LIST changes: +ISOVUE-M 300 61% 15ML VIAL As Ordered ONE; +LIDOCAINE 1% SDV 30ML VIAL As Ordered ONE; -LIDOCAINE 1% SDV INJ 30 ML VIAL As Ordered ONE; -MIDAZOLAM INJ 2 MG/2 ML VIAL (J2250) As Ordered ONE; -ONDANSETRON 4MG/2ML VIAL (J2405) As Ordered ONE; +diazePAM 5MG TABLET As Ordered ONE; -diphenhydrAMINE INJ 50MG/ML VIAL (J1200) As Ordered ONE; -fentaNYL 100 MCG/2 ML INJECTION (J3010) As Ordered ONE; +methylPREDNISolone SUSP 40MG/ML 1ML VIAL (DEPO MEDROL) As Ordered ONE; +oxyCODONE 5MG TAB As Ordered ONE
--- NOTE | 2020-05-17 14:00 | REP ---
INDICATION: LUMBAR EPIDURAL STEROID INJECTION. COMPARISON: None. TECHNIQUE: A single views. 6.5 seconds of fluoroscopy time is reported. FINDINGS: A single last image hold fluoroscopically obtained spot radiograph(s) of the lumbar spine document(s) needle position(s) and contrast injection associated with injection procedure. IMPRESSION: Procedural imaging. <Electronically signed by Reinaldo Brenner > 05/17/20 2805
--- NOTE | 2020-05-18 01:07 | ECWPNPC ---
PATIENT NAME: BROCK ARTEAGA : 1980 GENDER: MALE VISIT DATE: 05/17/2020 DISCHARGE DATE: 05/17/20 1040 VISIT LOCKED DATE TIME: PHYSICIAN: ETHAN MURILLO MD RESOURCE: ETHAN MURILLO MD REASON FOR APPOINTMENT 1. LUMBAR EPIDURAL STEROID INJECTION HISTORY OF PRESENT ILLNESS GENERAL: -. FALL RISK SCREENING: SCREENING : MULTIPLE FALLS WITHIN THE PAST YEAR, DENIES NEED FOR MEDICAL ATTENTION.. PAIN SCREENING: PATIENT HAS A COMPLAINT OF ACUTE OR CHRONIC PAIN :YES LOCATION OF PAIN: LOW BACK, BILATERAL LEGS INTENSITY OF PAIN (SCALE OF 1 TO 10):9 WHAT DOES YOUR PAIN FEEL LIKE:ACHING, CONTINOUS DURATION:CONTINOUS, AWAKENS FROM SLEEP PAIN IS INCREASED BY:ACTIVITIES, PROLONGED STANDING PAIN IS DECREASED BY:USE OF PAIN MEDICATIONS TREATMENT/MEDICATIONS USED TO MANAGE PAIN:OPIOIDS PAIN HAS INTERFERED WITH THE FOLLOWING:BATHING/DRESSING, MOOD, WALKING ABILITY, HOUSEWORK, SLEEP, RELATIONSHIP WITH OTHERS, ENJOYMENT OF LIFE, TRANSPORTATION PLAN/GOALS/TREATMENT/INTERVENTION/FOLLOW UP:SEE PLAN NURSING NOTE: -. PAIN CENTER INTAKE QUESTIONS: DO YOU HAVE A HISTORY OF MRSA? :NO DO YOU TAKE A BLOOD THINNERS? :NO DO YOU HAVE ANY BLEEDING DISORDERS? :NO ANY NEW NUMBNESS OR WEAKNESS IN YOUR LEGS OR ARMS? :NO ANY PACEMAKER,DEFIBRILLATOR, OR DORSAL COLUMN STIMULATOR? :NO DO YOU HAVE ANY RASHES OR OPEN SORES? :NO ARE YOU ALLERGIC TO IV DYE? :NO ARE YOU DIABETIC? :NO ANY NEW PROBLEMS WITH YOUR MEDICATIONS? :NO HAVE YOU RECEIVED A VACCINE IN THE PAST 30 DAYS? :NO DO YOU PLAN TO RECEIVE A VACCINE IN THE NEXT 21 DAYS? :YES IF SO WHAT VACCINE AND WHEN? COVID VACCINE SANDEEP, PLEASE WAIT 2 WEEKS (06/03/20). DO YOU TAKE ANY IMMUNOSUPPRESSIVE MEDICATIONS? :NO ANY HISTORY OF SEIZURES? :NO ANY HISTORY OF CARDIAC ISSUES OR EVENTS? :NO DO YOU HAVE ANY KIDNEY OR LIVER DISEASE? :NO DO YOU HAVE SLEEP APNEA? :YES DO YOU WEAR A CPAP?YES ANY RECENT HEAD INJURY? :NO DO YOU HAVE ANY NEW INFECTIONS? :NO IS THERE A CHANCE YOU COULD BE ? :N/A ARE YOU BREAST FEEDING? :N/A WHEN DID YOU LAST EAT? : 05/16 1300 WHEN DID YOU LAST DRINK? : 05/16 2129 WHAT DID YOU LAST DRINK? : WATER NAME OF PERSON DRIVING YOU HOME? : MADISYN DO YOU HAVE ANY OTHER QUESTIONS OR CONCERNS? : NO CURRENT MEDICATIONS TAKING OMEPRAZOLE 20 MG CAPSULE DELAYED RELEASE 1 CAPSULE ORALLY ONCE A DAY TAKING MAGNESIUM 500 MG TABLET 1 TABLET WITH A MEAL ORALLY ONCE A DAY TAKING GABAPENTIN 300 MG CAPSULE 1 CAPSULE ORALLY ONE IN AM, ONE AT NOON, ONE AT DINNER, TWO AT BEDTIME TAKING WELLBUTRIN 100 MG TABLET ORALLY BID TAKING LAMOTRIGINE 100 MG TABLET 1 TABLET ORALLY BID TAKING TRAZODONE HCL 50 MG TABLET 3 TABLETS AT BEDTIME ORALLY ONCE A DAY, NOTES: 05/16 2129 TAKING SEROQUEL 100 MG TABLET 2 TABLETS AT BEDTIME ORALLY ONCE A DAY, NOTES: 05/16 2129 TAKING STRATTERA 25 MG CAPSULE 1 CAPSULE IN THE MORNING ORALLY ONCE A DAY, NOTES: 05/15 TAKING PRAZOSIN HCL 1 MG CAPSULE 1 CAPSULE AT BEDTIME ORALLY ONCE A DAY TAKING HYDROCODONE-ACETAMINOPHEN 5-325 MG TABLET 1 TABLETS ORALLY BEFORE BEDTIME, NOTES: 05/16 2129 TAKING ATIVAN 2 2MG TABLET ORAL THREE TIMES DAILY NEEDED, NOTES: 05/15 TAKING MULTIVITAMIN ADULTS 50+ _ TABLET 2 GUMMIES ORALLY DAILY TAKING ASPIRIN 81 81 MG TABLET DELAYED RELEASE 1 TABLET ORALLY ONCE A DAY TAKING LOSARTAN POTASSIUM 50 MG TABLET 2 TABLETS ORALLY ONCE A DAY, NOTES: 05/15 TAKING PRAVASTATIN SODIUM 40 MG TABLET 2 TABLETS ORALLY ONCE A DAY TAKING VITAMIN B-12 1000 MCG TABLET CHEWABLE DIRECTED ORALLY TAKING VITAMIN C 1000 MG TABLET 1 TABLET ORALLY DAILY TAKING POTASSIUM 99 MG TABLET 1 TABLET ORALLY ONCE A DAY TAKING CO Q 10 _ CAPSULE 400 MGS 1 CAPSULE WITH A MEAL ORALLY ONCE A DAY TAKING CALCIUM + D3 600-800 MG-UNIT TABLET 1 TABLET WITH A MEAL ORALLY BID TAKING GRAPE SEED EXTRACT _ CAPSULE 500MGS 1CAP ORALLY DAILY TAKING SERTRALINE HCL 25 MG TABLET 1 TABLET ORALLY ONCE A DAY TAKING AMLODIPINE BESYLATE 10 MG TABLET 1 TABLET ORALLY ONCE A DAY, NOTES: 05/15 TAKING FLAX SEED OIL _ CAPSULE 1200 MGS 1 CAP ORALLY DAILY TAKING BENADRYL 25 MG CAPSULE 2 CAP ORALLY BEFORE BEDTIME TAKING HYDROCHLOROTHIAZIDE 12.5 MG CAPSULE 2 CAPSULE IN THE MORNING ORALLY ONCE A DAY TAKING APPLE CIDER VINEGAR - TABLET 480 MGS 1 TAB ORALLY DAILY NOT-TAKING IMIPRAMINE HCL 10 MG TABLET 1 TABLET ORALLY BID NOT-TAKING CIALIS 10 MG TABLET 1 TABLET NEEDED ORALLY MEDICATION LIST REVIEWED AND RECONCILED WITH THE PATIENT PAST MEDICAL HISTORY URI ON CPAP ANXIETY DEPRESSION INSOMNIA PTSD ADD HTN DYSLIPIDEMIA MIGRAINE FIBROMYALGIA CARPAL TUNNEL RHEUMATOID ARTHRITIS GERD KIDNEY STONES ALLERGIES BEES: FACE SWELLS - ALLERGY CUT GRASS: HIVES SOCIAL HISTORY GENERAL: TOBACCO USE ARE YOU A:FORMER SMOKER HOW LONG HAS IT BEEN SINCE YOU LAST SMOKED?6-12 MONTHS LATEX QUESTIONNAIRE LATEX ALLERGY : HAVE YOU EVER DEVELOPED ANY TYPE OF REACTION AFTER HANDLING LATEX PRODUCTS SUCH RUBBER GLOVES, CONDOMS, DIAPHRAGMS, BALLOONS, SOCKS, OR UNDERWEAR?NO LATEX ALLERGY : HAVE YOU EVER DEVELOPED ANY TYPE OF REACTION DURING OR AFTER DENTAL APPOINTMENT, VAGINAL/RECTAL EXAMINATION, SURGICAL PROCEDURE, OR ANY OTHER EXPOSURE?NO LATEX RISK : HAVE YOU EVER HAD ANY DIFFICULTY BREATHING OR HIVES AFTER EATING OR HANDLING ANY FRUITS, OR VEGETABLES; SUCH KIWI, BANANAS, STONE FRUITS, OR CHESTNUTSNO LATEX RISK : DO YOU HAVE A PREVIOUS PERSONAL HISTORY OF MORE THAN NINE SURGERIES, SPINA BIFIDA, OR REPEATED CATHERIZATIONS? NO LATEX RISK : ARE YOU FREQUENTLY EXPOSED TO LATEX PRODUCTS IN YOUR OCCUPATION?NO DATE ASKED : 05/16/2020 ALCOHOL USE: YES. ALCOHOL SCREENING DID YOU HAVE A DRINK CONTAINING ALCOHOL IN THE PAST YEAR?YES HOW OFTEN DID YOU HAVE SIX OR MORE DRINKS ON ONE OCCASION IN THE PAST YEAR?NEVER (0 POINTS) HOW MANY DRINKS DID YOU HAVE ON A TYPICAL DAY WHEN YOU WERE DRINKING IN THE PAST YEAR?1 OR 2 (0 POINTS) HOW OFTEN DID YOU HAVE A DRINK CONTAINING ALCOHOL IN THE PAST YEAR?TWO TO FOUR TIMES A MONTH (2 POINTS) POINTS2 INTERPRETATIONNEGATIVE RECREATIONAL DRUG USE: YES DRUG USE?YES MEDICAL MARIJUANA HOW OFTEN AND HOW MUCH? ABOUT EVERY OTHER DAY, HASN'T USED IN A WHILE, CAN'T AFFORD IT. CAFFEINE CAFFEINE USE?YES HOW OFTEN AND HOW MUCH? 3 PER DAY [id number] RELIGION LANGUAGE LANGUAGES SPOKEN:SURINAMESE EDUCATION LEVEL OF EDUCATION:NOT FINISHED COLLEGE GED LEARNING BARRIERS / SPECIAL NEEDS CHANGE FROM LAST VISIT?NO BARRIERS TO LEARNING?NO HEARING IMPAIRED?NO STATES HEARING IS SOMEWHAT IMPAIRED, ESPECIALLY IF THERE IS A LOT OF BACKGROUND NOISE, IE AT A RESTAURANT VISION IMPAIRED?YES WEARS GLASSES COGNITIVELY IMPAIRED?NO :CORRECTIVE LENSES READINESS TO LEARN?YES LEARNING PREFERENCES?NO LEARNING CAPABILITIES PRESENT?YES EMOTIONAL BARRIERS?NO SPECIAL DEVICES?NO ICE CUTTER NEEDED?NO DOMESTIC VIOLENCE DO YOU FEEL SAFE IN YOUR ENVIRONMENT?YES 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 DIET: REGULAR. MARITAL STATUS: SINGLE. OTHERS AT HOME: LIVES WITH OTHERS, APARTMENT. PATIENT DESCRIBES PAIN :ACHING, HAVE IT ALL THE TIME, STABBING WAKES FROM SLEEP FROM 0-10, WHAT LEVEL IS YOUR PAIN TODAY?8 PRECIPITATING FACTORS WORSE WITH ACTIVITY ALLEVIATING FACTORS HYDROCODONE - HAS THE PATIENT BEEN EDUCATED REGARDING HIS/HER PLAN OF CARE?YES HAS THE PATIENT BEEN EDUCATED REGARDING PAIN, THE RISK FOR PAIN, THE IMPORTANCE OF EFFECTIVE PAIN MANAGEMENT, AND THE PAIN ASSESSMENT PROCESS?YES HOUSING: RENTS APARTMENT. ADVANCE DIRECTIVE ADVANCE DIRECTIVE DISCUSSED WITH PATIENT:YES PT DOES NOT HAVE ANY ADVANCED DIRECTIVES AND HE DECLINES INFORMATION ON HCP AT THIS TIME VITAL SIGNS WT 333.2 LBS, HT 68 IN, BMI 50.66 INDEX, BP 161/81 MM HG, HR 118 /MIN, RR 20 /MIN, TEMP 98.4 F, OXYGEN SAT % 95%, SAFE IN ENV? (Y/N) Y, NA INITIALS SC 08:42, REVIEWED BY: Prateek MARTINEZ RN. EXAMINATION GENERAL EXAMINATION: A HISTORY AND PHYSICAL EXAM ON THE PATIENT WAS DONE ON 04/27/2020 (DATE OF ORIGINAL ASSESSMENT) IN PREPARATION OF SURGERY/PROCEDURE. I HAVE NOW REASSESSED THIS PATIENT'S HEALTH STATUS AND PERFORMED AN UPDATED EXAM TODAY. ALL CHANGES IN THE PATIENT'S HISTORY, PHYSICAL EXAM, PRE-EXISTING CONDITONS, AND INDICATIONS/CONTRAINDICATIONS TO THE PLANNED PROCEDURE AND ANESTHESIA ARE DOCUMENTED AND EVALUATED BELOW. I ATTEST TO THE ADEQUACY AND APPROPRIATENESS OF MY ASSESSMENT, AND CONFIRM THE NECESSITY FOR THE PLANNED PROCEDURE. THE PATIENT IS ALERT, ORIENTED TIMES THREE AND COOPERATIVE. LUNGS ARE CLEAR TO AUSCULTATION. HEART SHOWS REGULAR RHYTHM, NO MURMURS AND NO GALLOPS. ASSESSMENTS INTERVERTEBRAL DISC DISORDERS WITH RADICULOPATHY, LUMBAR REGION - M51.16 TREATMENT INTERVERTEBRAL DISC DISORDERS WITH RADICULOPATHY, LUMBAR REGION [facility] FLUORO GUIDE SPINE INJECTION (PAIN)[id number] COMPLETION OF PROCEDURAL VISIT WHEN MEETS CRITERIAEPI MARTINEZ 05/17/2020 10:56:40 AM > MET 1038 SALINE LOCKTHOMAS,DAX 05/17/2020 8:55:56 AM > 22G SALINE LOCK IN RIGHT HAND, ESTABLISHED ON FIRST ATTEMPT, POSITIVE FLASH, POSITIVE FLUSH, NO S/S OF INFILTRATION, PATIENT TOLERATED PROCEDURE WELL. EPI MARTINEZ 05/17/2020 10:29:27 AM > D/C'D AT 1025. SITE CLEAR WITHOUT REDNESS OR SWELLING. MEDICATION: VALIUM TAB 10MG ORALLY (DIAZEPAM)MARBELLA ROSENBAUM RN 05/17/2020 8:45:03 AM > VERIFIED. RAYMON MARTINEZITA 05/17/2020 9:10:56 AM > ADMINISTERED MEDICATION: OXYCODONE HCL TAB 10MG ORALLYMARBELLA ROSENBAUM RN 05/17/2020 8:44:44 AM > VERIFIED. JUAN,EPI 05/17/2020 9:11:26 AM > ADMINISTERED OTHERS NOTES: 05/16/20 1020 PAT COMPLETED. RICARDO TRIM CARPENTER. PROCEDURES PAIN NURSING RECORD PROCEDURE IN ROOM 0938, PHYSICIAN IN ROOM 0951, START 1001, FINISH 1006, PHYSICIAN OUT OF ROOM 1010, OUT OF ROOM 1015, ECG OTHER SINUS TACH, PATIENT SHIELDED YES, SAFETY STRAP YES, PREP BETADINE BY, DRESSING TEGADERM BY DR. MURILLO LOC: JUAN,EPI 05/17/2020 9:15:24 AM > 1. ALERT, ORIENTED JUAN,EPI 05/17/2020 10:21:09 AM > 1. ALERT, ORIENTED RESP: JUANEPI TREVINO 05/17/2020 9:15:28 AM > 1. REGULAR, NO DYSPNEA JUANEPI 05/17/2020 10:21:17 AM > 1. REGULAR, NO DYSPNEA COLOR: JUAN,EPI 05/17/2020 9:15:31 AM > 1. PINK EPI MARTINEZ 05/17/2020 10:21:23 AM > 1. PINK SKIN: JUAN,EPI 05/17/2020 9:15:34 AM > 1. WARM, DRY JUANEPI 05/17/2020 10:21:32 AM > 1. WARM, DRY POSITION: EPI MARTINEZ 05/17/2020 9:15:37 AM > 5. SITTING EPI MARTINEZ 05/17/2020 9:42:51 AM > 1. PRONE EPI MARTINEZ 05/17/2020 10:21:40 AM > 5. SITTING VITALS: EPI MARTINEZ 05/17/2020 9:42:56 AM > 128/66,110,16,94% EPI MARTINEZ 05/17/2020 9:57:33 AM > 152/99,104,16,93% EPI MARTINEZ 05/17/2020 10:13:02 AM > 156/99,101,16,91% EPI MARTINEZ 05/17/2020 10:27:17 AM > 134/84,103,18,95% COMPLETION OF PROCEDURE APPOINTMENT: POST PAIN 8, DRESSING SITE DRY AND INTACT, IV DISCONTINUED, SITE CLEAR, CATHETER INTACT, GAIT STEADY, TEACHING COMPLETED, PATIENT ACKNOWLEDGES UNDERSTANDING YES, PROCEDURE APPOINTMENT COMPLETED AT 1038 BY: Prateek MARTINEZ RN PRE PROCEDURE DIAGNOSIS LUMBAR DISC DISORDER WITH RADICULOPATHY POST PROCEDURE DIAGNOSIS LUMBAR DISC DISORDER WITH RADICULOPATHY PROCEDURE LUMBAR EPIDURAL STEROID INJECTION UNDER FLUOROSCOPIC GUIDANCE SURGEON DR. ETHAN MURILLO TAX CONSULTANT NONE ANESTHESIA LOCAL PRE PROCEDURE NOTE THE PATIENT HAS A HISTORY OF CHRONIC LOW BACK PAIN. I EVALUATED THE PATIENT AND REVIEWED THE CHART. I WENT OVER THE RISKS, ALTERNATIVES, AND BENEFITS ASSOCIATED WITH THIS PROCEDURE. THE PATIENT WOULD LIKE TO PROCEED AND GIVE CONSENT TO PERFORMED THE PROCEDURE. THE PATIENT DENIES UNEXPLAINABLE WEIGHT LOSS, FEVER, CHILLS, OR NEW CHANGES IN URINARY OR BOWEL CONTROL. THE PATIENT IS COVID-19 NEGATIVE DESCRIPTION OF PROCEDURE THE PATIENT WAS BROUGHT TO THE PROCEDURE ROOM AND PLACED IN THE PRONE POSITION. THE LUMBOSACRAL AREA WAS CLEANED WITH BETADINE SOLUTION AND DRAPED ASEPTICALLY. THE PROCEDURE WAS DONE UNDER STERILE CONDITIONS. A TIMEOUT WAS PERFORMED WHERE THE CONSENTED SITE WAS VERIFIED WITH EVERYONE IN THE ROOM. UNDER FLUOROSCOPIC GUIDANCE, THE TARGET POINT WAS SELECTED AT THE INTERLAMINAR LEVEL OF L4-L5. I CONFIRMED AGAIN THE SITE OF TARGET. LIDOCAINE WAS USED TO NUMB THE SKIN AND THE SUBCUTANEOUS TISSUE BELOW IT. EPIDURAL TUOHY NEEDLE, 17-GAUGE, WAS ADVANCED UNDER FLUOROSCOPIC GUIDANCE AND FOLLOWING PATIENT FEEDBACK UNTIL THE EPIDURAL SPACE WAS REACHED 9 CM DEEP INTO THE SKIN BY THE LOSS OF RESISTANCE TECHNIQUE. ISOVUE-M DYE 30%, 0.25 ML, WAS INJECTED SHOWING ADEQUATE SPREAD OF THE DYE. THEN, A SOLUTION OF 3 ML OF NORMAL SALINE WITH DEPO-MEDROL 40 MG WAS INJECTED SLOWLY FOLLOWING PATIENT FEEDBACK. THE MEDICATIONS WERE VERIFIED WITH THE NURSE. THERE WAS NO EVIDENCE OF BLOOD, PARESTHESIA OR CEREBROSPINAL FLUID DURING THE PROCEDURE. THE PATIENT WAS SENT TO THE RECOVERY ROOM. THE PATIENT WAS MOVING THE EXTREMITIES AND DOING WELL. THERE WERE NO COMPLICATIONS DURING THE PROCEDURE. ESTIMATED BLOOD LOSS WAS LESS THAN 5 ML. FLUOROSCOPY TIME WAS 9 SECONDS POST PROCEDURE NOTE DEPENDING ON THE RESULTS, CONSIDER A LEFT TRANSFORAMINAL EPIDURAL STEROID INJECTION L3-L4, L4-L5, L5-S1. THE PATIENT WILL BE SEEN IN A FOLLOW UP IN THE NEXT FEW WEEKS. I AM LOOKING FOR LONG LASTING RELIEF FOR THE PATIENT WITH THIS INTERVENTION. INSTRUCTIONS WERE GIVEN, QUESTIONS WERE ANSWERED, AND THE PATIENT EXPRESSED UNDERSTANDING AND AGREES WITH THE PLAN. I, NIRMALA SRIVASTAVA, DOCUMENTED THE ABOVE INFORMATION ACTING A SCRIBE FOR DR. MURILLO. I HAVE REVIEWED THE ABOVE DOCUMENT, WRITTEN BY NIRMALA SRIVASTAVA, MILLER KILN DRIED SALT, AND I VERIFY THAT IT IS ACCURATE PROCEDURE CODES 91203 LUMBAR/SACRAL W/ IMAGING DISPOSITION & COMMUNICATION FOLLOW UP FU WITH SIGN HANGER SUPERVISOR (REASON: POST LUMBAR EPIDURAL STEROID INJECTION) ELECTRONICALLY SIGNED BY ETHAN MURILLO MD, MD ON 05/17/2020 AT 03:06 PM EDT DISCLAIMER : THIS IS A VISIT SUMMARY EXTRACTED FROM THE [employer] CHART. IT IS NOT A COPY OF THE [employer] PROGRESS NOTE. WA[facility]
== END ==
LOC: M PAIN 08:30
PROVIDERS: ATTEND Anesthesiology
DX: M51.16 Intervertebral disc disorders with radiculopathy, lumbar region (principal); G47.33 Obstructive sleep apnea (adult) (pediatric); F41.9 Anxiety disorder, unspecified; F32.9 Major depressive disorder, single episode, unspecified; G47.00 Insomnia, unspecified; F43.10 Post-traumatic stress disorder, unspecified; I10 Essential (primary) hypertension; E78.5 Hyperlipidemia, unspecified; G43.909 Migraine, unspecified, not intractable, without status migrainosus; M79.7 Fibromyalgia; M06.9 Rheumatoid arthritis, unspecified; J30.1 Allergic rhinitis due to pollen; K21.9 Gastro-esophageal reflux disease without esophagitis; Z87.442 Personal history of urinary calculi; Z87.891 Personal history of nicotine dependence; Z79.82 Long term (current) use of aspirin; Z79.899 Other long term (current) drug therapy; Z91.030 Bee allergy status
CPT/HCPCS: 62323; J1030; Q9967

== ENCOUNTER → 2020-05-31 | Outpatient (CLI) | payer BC ==
--- NOTE | 2020-06-07 04:21 | ECWPNPC ---
PATIENT NAME: BROCK ARTEAGA : 1980 GENDER: MALE VISIT DATE: 05/31/2020 DISCHARGE DATE: 05/31/20 1133 VISIT LOCKED DATE TIME: PHYSICIAN: JANEL PIMENTEL RESOURCE: JANEL PIMENTEL REASON FOR APPOINTMENT 1. POST LUMBAR EPIDURAL STEROID INJECTION HISTORY OF PRESENT ILLNESS GENERAL: HERE FOR POST PROCEDURE F/U.HAD LESI AT LAST VISIT.REPORTING MINIMAL IMPROVEMENT FOR A SHORT PERIOD OF TIME.CURRENTLY BEING EVALUATED BY PRIMARY CARE FOR ELEVATED HERMILA.HISTORY OF FREQUENT FALLING EPISODES AND WILL BE SEEING NEUROLOGY.HE IS IN SEVERE DISCOMFORT TODAY.DENIES BOWEL OR BLADDER INCONTINENCE OR SADAL PARATHESIAS. -. FALL RISK SCREENING: SCREENING HAD LOT OF FALL THIS YEAR BUT DID NOT GO THE ER. PAIN SCREENING: PATIENT HAS A COMPLAINT OF ACUTE OR CHRONIC PAIN :YES LOCATION OF PAIN:LOW BACK INTENSITY OF PAIN (SCALE OF 1 TO 10):10 WHAT DOES YOUR PAIN FEEL LIKE:SHOOTING DURATION:CONTINOUS, CONSTANT, ALL DAY PAIN IS INCREASED BY:ACTIVITIES PAIN IS DECREASED BY:OTHERS NURSING NOTE: -. PAIN CENTER INTAKE QUESTIONS: DO YOU HAVE A HISTORY OF MRSA? :NO DO YOU TAKE A BLOOD THINNERS? :NO DO YOU HAVE ANY BLEEDING DISORDERS? :NO ANY NEW NUMBNESS OR WEAKNESS IN YOUR LEGS OR ARMS? :NO ANY PACEMAKER,DEFIBRILLATOR, OR DORSAL COLUMN STIMULATOR? :NO DO YOU HAVE ANY RASHES OR OPEN SORES? :NO ARE YOU ALLERGIC TO IV DYE? :NO ARE YOU DIABETIC? :NO ANY NEW PROBLEMS WITH YOUR MEDICATIONS? :NO HAVE YOU RECEIVED A VACCINE IN THE PAST 30 DAYS? :NO DO YOU PLAN TO RECEIVE A VACCINE IN THE NEXT 21 DAYS? :YES 1ST COVID 06/03/2020 DO YOU NEED ANY PRESCRIPTION? :NO DO YOU TAKE ANY IMMUNOSUPPRESSIVE MEDICATIONS? :NO DO YOU HAVE ANY KIDNEY OR LIVER DISEASE? :NO IS THERE A CHANCE YOU COULD BE ? :NO ARE YOU BREAST FEEDING? :NO CURRENT MEDICATIONS TAKING OMEPRAZOLE 20 MG CAPSULE DELAYED RELEASE 1 CAPSULE ORALLY ONCE A DAY TAKING MAGNESIUM 500 MG TABLET 1 TABLET WITH A MEAL ORALLY ONCE A DAY TAKING GABAPENTIN 300 MG CAPSULE 1 CAPSULE ORALLY ONE IN AM, ONE AT NOON, ONE AT DINNER, TWO AT BEDTIME TAKING WELLBUTRIN 100 MG TABLET ORALLY BID TAKING LAMOTRIGINE 100 MG TABLET 1 TABLET ORALLY BID TAKING TRAZODONE HCL 50 MG TABLET 3 TABLETS AT BEDTIME ORALLY ONCE A DAY TAKING SEROQUEL 100 MG TABLET 2 TABLETS AT BEDTIME ORALLY ONCE A DAY TAKING STRATTERA 25 MG CAPSULE 1 CAPSULE IN THE MORNING ORALLY ONCE A DAY TAKING PRAZOSIN HCL 1 MG CAPSULE 1 CAPSULE AT BEDTIME ORALLY ONCE A DAY TAKING HYDROCODONE-ACETAMINOPHEN 5-325 MG TABLET 1 TABLETS ORALLY BEFORE BEDTIME TAKING ATIVAN 2 2MG TABLET ORAL THREE TIMES DAILY NEEDED TAKING MULTIVITAMIN ADULTS 50+ _ TABLET 2 GUMMIES ORALLY DAILY TAKING ASPIRIN 81 81 MG TABLET DELAYED RELEASE 1 TABLET ORALLY ONCE A DAY TAKING LOSARTAN POTASSIUM 50 MG TABLET 2 TABLETS ORALLY ONCE A DAY TAKING PRAVASTATIN SODIUM 40 MG TABLET 2 TABLETS ORALLY ONCE A DAY TAKING VITAMIN B-12 1000 MCG TABLET CHEWABLE DIRECTED ORALLY TAKING VITAMIN C 1000 MG TABLET 1 TABLET ORALLY DAILY TAKING POTASSIUM 99 MG TABLET 1 TABLET ORALLY ONCE A DAY TAKING CO Q 10 _ CAPSULE 400 MGS 1 CAPSULE WITH A MEAL ORALLY ONCE A DAY TAKING CALCIUM + D3 600-800 MG-UNIT TABLET 1 TABLET WITH A MEAL ORALLY BID TAKING GRAPE SEED EXTRACT _ CAPSULE 500MGS 1CAP ORALLY DAILY TAKING SERTRALINE HCL 25 MG TABLET 1 TABLET ORALLY ONCE A DAY TAKING AMLODIPINE BESYLATE 10 MG TABLET 1 TABLET ORALLY ONCE A DAY TAKING FLAX SEED OIL _ CAPSULE 1200 MGS 1 CAP ORALLY DAILY TAKING BENADRYL 25 MG CAPSULE 2 CAP ORALLY BEFORE BEDTIME TAKING HYDROCHLOROTHIAZIDE 12.5 MG CAPSULE 2 CAPSULE IN THE MORNING ORALLY ONCE A DAY TAKING APPLE CIDER VINEGAR - TABLET 480 MGS 1 TAB ORALLY DAILY NOT-TAKING IMIPRAMINE HCL 10 MG TABLET 1 TABLET ORALLY BID NOT-TAKING CIALIS 10 MG TABLET 1 TABLET NEEDED ORALLY MEDICATION LIST REVIEWED AND RECONCILED WITH THE PATIENT PAST MEDICAL HISTORY URI ON CPAP ANXIETY DEPRESSION INSOMNIA PTSD ADD HTN DYSLIPIDEMIA MIGRAINE FIBROMYALGIA CARPAL TUNNEL RHEUMATOID ARTHRITIS GERD KIDNEY STONES ALLERGIES BEES: FACE SWELLS - ALLERGY CUT GRASS: HIVES SOCIAL HISTORY GENERAL: TOBACCO USE ARE YOU A:FORMER SMOKER HOW LONG HAS IT BEEN SINCE YOU LAST SMOKED?6-12 MONTHS LATEX QUESTIONNAIRE LATEX ALLERGY : HAVE YOU EVER DEVELOPED ANY TYPE OF REACTION AFTER HANDLING LATEX PRODUCTS SUCH RUBBER GLOVES, CONDOMS, DIAPHRAGMS, BALLOONS, SOCKS, OR UNDERWEAR?NO LATEX ALLERGY : HAVE YOU EVER DEVELOPED ANY TYPE OF REACTION DURING OR AFTER DENTAL APPOINTMENT, VAGINAL/RECTAL EXAMINATION, SURGICAL PROCEDURE, OR ANY OTHER EXPOSURE?NO LATEX RISK : HAVE YOU EVER HAD ANY DIFFICULTY BREATHING OR HIVES AFTER EATING OR HANDLING ANY FRUITS, OR VEGETABLES; SUCH KIWI, BANANAS, STONE FRUITS, OR CHESTNUTSNO LATEX RISK : DO YOU HAVE A PREVIOUS PERSONAL HISTORY OF MORE THAN NINE SURGERIES, SPINA BIFIDA, OR REPEATED CATHERIZATIONS? NO LATEX RISK : ARE YOU FREQUENTLY EXPOSED TO LATEX PRODUCTS IN YOUR OCCUPATION?NO DATE ASKED : 05/31/2020 ALCOHOL USE: YES. ALCOHOL SCREENING DID YOU HAVE A DRINK CONTAINING ALCOHOL IN THE PAST YEAR?YES HOW OFTEN DID YOU HAVE SIX OR MORE DRINKS ON ONE OCCASION IN THE PAST YEAR?NEVER (0 POINTS) HOW MANY DRINKS DID YOU HAVE ON A TYPICAL DAY WHEN YOU WERE DRINKING IN THE PAST YEAR?1 OR 2 (0 POINTS) HOW OFTEN DID YOU HAVE A DRINK CONTAINING ALCOHOL IN THE PAST YEAR?TWO TO FOUR TIMES A MONTH (2 POINTS) POINTS2 INTERPRETATIONNEGATIVE RECREATIONAL DRUG USE: YES DRUG USE?YES MEDICAL MARIJUANA HOW OFTEN AND HOW MUCH? ABOUT EVERY OTHER DAY, HASN'T USED IN A WHILE, CAN'T AFFORD IT. CAFFEINE CAFFEINE USE?YES HOW OFTEN AND HOW MUCH? 3 PER DAY [id number] LANGU[employer] LANGUAGES SPOKEN:AMERICAN EDUCATION LEVEL OF EDUCATION:NOT FINISHED COLLEGE GED LEARNING BARRIERS / SPECIAL NEEDS CHANGE FROM LAST VISIT?NO BARRIERS TO LEARNING?NO HEARING IMPAIRED?NO STATES HEARING IS SOMEWHAT IMPAIRED, ESPECIALLY IF THERE IS A LOT OF BACKGROUND NOISE, IE AT A RESTAURANT VISION IMPAIRED?YES WEARS GLASSES :CORRECTIVE LENSES COGNITIVELY IMPAIRED?NO READINESS TO LEARN?YES LEARNING PREFERENCES?NO LEARNING CAPABILITIES PRESENT?YES EMOTIONAL BARRIERS?NO SPECIAL DEVICES?NO PRINTING SPECIALIST NEEDED?NO DOMESTIC VIOLENCE DO YOU FEEL SAFE IN YOUR ENVIRONMENT?YES 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 DIET: REGULAR. MARITAL STATUS: SINGLE. OTHERS AT HOME: LIVES WITH OTHERS, APARTMENT. PATIENT DESCRIBES PAIN :ACHING, HAVE IT ALL THE TIME, STABBING WAKES FROM SLEEP FROM 0-10, WHAT LEVEL IS YOUR PAIN TODAY?8 PRECIPITATING FACTORS WORSE WITH ACTIVITY ALLEVIATING FACTORS HYDROCODONE - HAS THE PATIENT BEEN EDUCATED REGARDING HIS/HER PLAN OF CARE?YES HAS THE PATIENT BEEN EDUCATED REGARDING PAIN, THE RISK FOR PAIN, THE IMPORTANCE OF EFFECTIVE PAIN MANAGEMENT, AND THE PAIN ASSESSMENT PROCESS?YES HOUSING: RENTS APARTMENT. ADVANCE DIRECTIVE ADVANCE DIRECTIVE DISCUSSED WITH PATIENT:YES PT DOES NOT HAVE ANY ADVANCED DIRECTIVES AND HE DECLINES INFORMATION ON HCP AT THIS TIME REVIEW OF SYSTEMS CONSTITUTIONAL: ANY RECENT FEVER NO . CHILLS NO . WEIGHT CHANGE OF UNKNOWN REASONS NO . GASTROENTEROLOGY: NEW UNEXPLAINABLE CHANGES IN BOWEL CONTROL NO . CONSTIPATION NO . GENITOURINARY: ANY NEW CHANGE IN BLADDER CONTROL? NO . NEUROLOGY: NEW ONSET DIZZINESS OR NEUROLOGICAL CHANGES NOT MENTIONED NO . NEW NUMBNESS OR PAIN PATTERNS NOT MENTIONED AND PERTINENT TO TODAY'S VISIT NO . CARDIOLOGY: NEW CHEST PRESSURE NO . PATIENT DENIES NO . RESPIRATORY: UNEXPLAINABLE COUGH NO . NEW SHORTNESS OF BREATH NO . VITAL SIGNS WT 339.6 LBS, HT 68 IN, BMI 51.63 INDEX, BP 138/73 MM HG, HR 121 /MIN, RR 20 /MIN, TEMP 96.5 F, OXYGEN SAT % 95%, NA INITIALS SC 10:39. EXAMINATION GENERAL EXAMINATION: GENERALNO ACUTE DISTRESS, WELL NOURISHED AND HYDRATED. PSYCHAPPROPRIATE MOOD AND AFFECT . NECK:NO LYMPHADENOPATHY, SUPPLE. LUNGS:CLEAR TO AUSCULTATION BILATERALLY, NO WHEEZES, RHONCHI, RALES. HEART:NO MURMURS, REGULAR RATE AND RHYTHM. MUSCULOSKELETAL:WEAKNESS NOTED OVER BILATERAL LOWER EXTREMITIES . LUMBAR: PALPATION: + FOR PAIN OVER L/S SPINE. + FOR PAIN OVER L/S PARSPINALS. NEUROLOGIC EXAM:NORMAL SENSATION TO LIGHT TOUCH LOWER EXTREMITIES . DIAGNOSTIC TESTS REVIEWEDMRI L/S SPINE 2019 . 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 TREATMENT OTHER CHRONIC PAIN START KETOROLAC TROMETHAMINE TABLET, 10 MG, 1 TABLET WITH FOOD OR MILK NEEDED, ORALLY, EVERY 6 HRS, 5 DAY(S), 20 PAIN PROCEDURE LOGDATE OF PROCEDURE1PROCEDURE:LUMBAR EPIDURAL STEROID INJECTIONAMOUNT OF PRE SEDATEVALIUM 10MG, OXYCODONE 10MGRESULT:MINIMAL IMPROVEMENT FOR A SHORT TIME POST PROCEDURE PROCEDURE CODES [id number] ESTABILISHED PATIENT [facility] FACILITY CHARGE DISPOSITION & COMMUNICATION FOLLOW UP 2 MONTHS (REASON: F/U LOW BACK PAIN/KETOROLAC RUN/WORK UP AT PRIMARY CARE FOR ELEVATED HERMILA,FREQUENT FALLS/NEURO APT) ELECTRONICALLY SIGNED BY FREDERICK EVANS ON 06/06/2020 AT 06:16 AM EDT DISCLAIMER : THIS IS A VISIT SUMMARY EXTRACTED FROM THE [employer] CHART. IT IS NOT A COPY OF THE [employer] PROGRESS NOTE. MTDD
== END ==
LOC: M PAIN 10:15
PROVIDERS: ATTEND Nurse Practitioner Family
DX: G89.29 Other chronic pain (principal); M47.816 Spondylosis without myelopathy or radiculopathy, lumbar region; M51.26 Other intervertebral disc displacement, lumbar region; G47.33 Obstructive sleep apnea (adult) (pediatric); F41.9 Anxiety disorder, unspecified; F32.9 Major depressive disorder, single episode, unspecified; G47.00 Insomnia, unspecified; F43.10 Post-traumatic stress disorder, unspecified; I10 Essential (primary) hypertension; E78.5 Hyperlipidemia, unspecified; M79.7 Fibromyalgia; K21.9 Gastro-esophageal reflux disease without esophagitis; M06.9 Rheumatoid arthritis, unspecified; Z87.891 Personal history of nicotine dependence; Z79.82 Long term (current) use of aspirin; Z79.899 Other long term (current) drug therapy; Z91.030 Bee allergy status; J30.1 Allergic rhinitis due to pollen

== ENCOUNTER → 2020-07-14 | Outpatient (CLI) | payer BC ==
[2020-07-14 12:58] LABS: C REACTIVE PROTEIN QUANTITATIV 0.55 MG/DL (0.00-0.30); RHEUMATOID FACTOR QUANT < 10.0 IU/ML (<15.0)
[2020-07-14 14:24] LABS: HEMOGLOBIN A1c 5.7 %
== END ==
LOC: M WUC 10:09
PROVIDERS: ATTEND Physician Assistant
DX: R76.0 Raised antibody titer (principal)

== ENCOUNTER → 2020-07-26 | Outpatient (CLI) | payer BC ==
--- NOTE | 2020-07-27 04:09 | ECWPNPC ---
PATIENT NAME: BROCK ARTEAGA : 1980 GENDER: MALE VISIT DATE: 07/26/2020 DISCHARGE DATE: 07/26/20 1035 VISIT LOCKED DATE TIME: PHYSICIAN: JANEL PIMENTEL RESOURCE: JANEL PIMENTEL REASON FOR APPOINTMENT 1. F/U LOW BACK PAIN/KETOROLAC RUN/WORK UP AT [facility] FOR ELEVATED HERMILA,FREQUENT FALLS/NEURO APT HISTORY OF PRESENT ILLNESS GENERAL: HERE FOR FOLLOW-UP OF CHRONIC GENERALIZED BACK PAIN. WORST AREA OF PAIN IS LOWER BACK. PAIN RADIATES INTO LOWER EXTREMITIES LEFT GREATER THAN RIGHT. REVIEWED MRI OF THE LS-SPINE. THIS IS SHOWING SIGNIFICANT PATHOLOGY WITH DISC PROTRUSION AND MIGRATION WITH NEURAL FORAMINAL NARROWING. HE IS ON MULTIPLE MEDICATIONS. RIGHT NOW [facility] IS FOLLOWING HIM AND PRESCRIBING HYDROCODONE 5/325 OF WHICH HE IS ABLE TO TAKE TWICE A DAY NEEDED. PATIENT REPORTS THAT THIS IS MINIMALLY EFFECTIVE. DENIES BOWEL OR BLADDER INCONTINENCE. DISCUSSED TREATMENT OPTIONS. -. FALL RISK SCREENING: SCREENING A FEW FALLS THIS YEAR, NO INJURIES, DID NOT GO THE ER FOR ANY OF HIS FALLS. PAIN SCREENING: PATIENT HAS A COMPLAINT OF ACUTE OR CHRONIC PAIN :YES LOCATION OF PAIN:LOW BACK INTENSITY OF PAIN (SCALE OF 1 TO 10):10 WHAT DOES YOUR PAIN FEEL LIKE:SHARP DURATION:CONTINOUS, CONSTANT, ALL DAY PAIN IS INCREASED BY:ACTIVITIES, PROLONGED STANDING PAIN IS DECREASED BY:OTHERS HEATING PAD NURSING NOTE: -. PAIN CENTER INTAKE QUESTIONS: DO YOU HAVE A HISTORY OF MRSA? :NO DO YOU TAKE A BLOOD THINNERS? :NO DO YOU HAVE ANY BLEEDING DISORDERS? :NO ANY NEW NUMBNESS OR WEAKNESS IN YOUR LEGS OR ARMS? :NO ANY PACEMAKER,DEFIBRILLATOR, OR DORSAL COLUMN STIMULATOR? :NO DO YOU HAVE ANY RASHES OR OPEN SORES? :NO ARE YOU ALLERGIC TO IV DYE? :NO ARE YOU DIABETIC? :NO ANY NEW PROBLEMS WITH YOUR MEDICATIONS? :NO HAVE YOU RECEIVED A VACCINE IN THE PAST 30 DAYS? :YES 1ST COVID 06/03/2020 2ND COVID 06/24/2020 DO YOU PLAN TO RECEIVE A VACCINE IN THE NEXT 21 DAYS? :YES DO YOU NEED ANY PRESCRIPTION? :NO DO YOU TAKE ANY IMMUNOSUPPRESSIVE MEDICATIONS? :NO DO YOU HAVE ANY KIDNEY OR LIVER DISEASE? :NO KIDNEY STONES IS THERE A CHANCE YOU COULD BE ? :NO ARE YOU BREAST FEEDING? :NO CURRENT MEDICATIONS TAKING OMEPRAZOLE 20 MG CAPSULE DELAYED RELEASE 1 CAPSULE ORALLY ONCE A DAY TAKING MAGNESIUM 500 MG TABLET 1 TABLET WITH A MEAL ORALLY ONCE A DAY TAKING GABAPENTIN 300 MG CAPSULE 1 CAPSULE ORALLY ONE IN AM, ONE AT NOON, ONE AT DINNER, TWO AT BEDTIME TAKING WELLBUTRIN 100 MG TABLET ORALLY BID TAKING LAMOTRIGINE 100 MG TABLET 1 TABLET ORALLY BID TAKING TRAZODONE HCL 50 MG TABLET 3 TABLETS AT BEDTIME ORALLY ONCE A DAY TAKING SEROQUEL 100 MG TABLET 2 TABLETS AT BEDTIME ORALLY ONCE A DAY TAKING STRATTERA 25 MG CAPSULE 1 CAPSULE IN THE MORNING ORALLY ONCE A DAY TAKING PRAZOSIN HCL 1 MG CAPSULE 1 CAPSULE AT BEDTIME ORALLY ONCE A DAY TAKING HYDROCODONE-ACETAMINOPHEN 5-325 MG TABLET 1 TABLETS ORALLY BEFORE BEDTIME TAKING ATIVAN 2 2MG TABLET ORAL THREE TIMES DAILY NEEDED TAKING MULTIVITAMIN ADULTS 50+ _ TABLET 2 GUMMIES ORALLY DAILY TAKING ASPIRIN 81 81 MG TABLET DELAYED RELEASE 1 TABLET ORALLY ONCE A DAY TAKING PRAVASTATIN SODIUM 40 MG TABLET 2 TABLETS ORALLY ONCE A DAY TAKING VITAMIN B-12 1000 MCG TABLET CHEWABLE DIRECTED ORALLY TAKING VITAMIN C 1000 MG TABLET 1 TABLET ORALLY DAILY TAKING POTASSIUM 99 MG TABLET 1 TABLET ORALLY ONCE A DAY TAKING CO Q 10 _ CAPSULE 400 MGS 1 CAPSULE WITH A MEAL ORALLY ONCE A DAY TAKING CALCIUM + D3 600-800 MG-UNIT TABLET 1 TABLET WITH A MEAL ORALLY BID TAKING GRAPE SEED EXTRACT _ CAPSULE 500MGS 1CAP ORALLY DAILY TAKING SERTRALINE HCL 25 MG TABLET 1 TABLET ORALLY ONCE A DAY TAKING AMLODIPINE BESYLATE 10 MG TABLET 1 TABLET ORALLY ONCE A DAY TAKING FLAX SEED OIL _ CAPSULE 1200 MGS 1 CAP ORALLY DAILY TAKING BENADRYL 25 MG CAPSULE 2 CAP ORALLY BEFORE BEDTIME TAKING HYDROCHLOROTHIAZIDE 12.5 MG CAPSULE 2 CAPSULE IN THE MORNING ORALLY ONCE A DAY TAKING APPLE CIDER VINEGAR - TABLET 480 MGS 1 TAB ORALLY DAILY TAKING VALSARTAN 320 MG TABLET 1 TABLET ORALLY ONCE A DAY TAKING VIAGRA 100 MG TABLET 1 TABLET NEEDED ORALLY ONCE A DAY TAKING FLONASE ALLERGY RELIEF 50 MCG/ACT SUSPENSION 1 SPRAY IN EACH NOSTRIL NASALLY ONCE A DAY TAKING LORATADINE 10 MG TABLET 1 TABLET ORALLY ONCE A DAY NOT-TAKING LOSARTAN POTASSIUM 50 MG TABLET 2 TABLETS ORALLY ONCE A DAY NOT-TAKING KETOROLAC TROMETHAMINE 10 MG TABLET 1 TABLET WITH FOOD OR MILK NEEDED ORALLY EVERY 6 HRS NOT-TAKING IMIPRAMINE HCL 10 MG TABLET 1 TABLET ORALLY BID NOT-TAKING CIALIS 10 MG TABLET 1 TABLET NEEDED ORALLY MEDICATION LIST REVIEWED AND RECONCILED WITH THE PATIENT PAST MEDICAL HISTORY URI ON CPAP ANXIETY DEPRESSION INSOMNIA PTSD ADD HTN DYSLIPIDEMIA MIGRAINE FIBROMYALGIA CARPAL TUNNEL RHEUMATOID ARTHRITIS GERD KIDNEY STONES ALLERGIES BEES: FACE SWELLS - ALLERGY CUT GRASS: HIVES - ALLERGY SOCIAL HISTORY GENERAL: TOBACCO USE ARE YOU A:FORMER SMOKER 2 YEARS HOW LONG HAS IT BEEN SINCE YOU LAST SMOKED?1-5 YEARS LATEX QUESTIONNAIRE LATEX ALLERGY : HAVE YOU EVER DEVELOPED ANY TYPE OF REACTION AFTER HANDLING LATEX PRODUCTS SUCH RUBBER GLOVES, CONDOMS, DIAPHRAGMS, BALLOONS, SOCKS, OR UNDERWEAR?NO LATEX ALLERGY : HAVE YOU EVER DEVELOPED ANY TYPE OF REACTION DURING OR AFTER DENTAL APPOINTMENT, VAGINAL/RECTAL EXAMINATION, SURGICAL PROCEDURE, OR ANY OTHER EXPOSURE?NO LATEX RISK : HAVE YOU EVER HAD ANY DIFFICULTY BREATHING OR HIVES AFTER EATING OR HANDLING ANY FRUITS, OR VEGETABLES; SUCH KIWI, BANANAS, STONE FRUITS, OR CHESTNUTSNO LATEX RISK : DO YOU HAVE A PREVIOUS PERSONAL HISTORY OF MORE THAN NINE SURGERIES, SPINA BIFIDA, OR REPEATED CATHERIZATIONS? NO LATEX RISK : ARE YOU FREQUENTLY EXPOSED TO LATEX PRODUCTS IN YOUR OCCUPATION?NO DATE ASKED : 07/26/2020 ALCOHOL USE: YES. ALCOHOL SCREENING DID YOU HAVE A DRINK CONTAINING ALCOHOL IN THE PAST YEAR?YES HOW OFTEN DID YOU HAVE SIX OR MORE DRINKS ON ONE OCCASION IN THE PAST YEAR?NEVER (0 POINTS) HOW MANY DRINKS DID YOU HAVE ON A TYPICAL DAY WHEN YOU WERE DRINKING IN THE PAST YEAR?1 OR 2 (0 POINTS) HOW OFTEN DID YOU HAVE A DRINK CONTAINING ALCOHOL IN THE PAST YEAR?TWO TO FOUR TIMES A MONTH (2 POINTS) POINTS2 INTERPRETATIONNEGATIVE RECREATIONAL DRUG USE: YES DRUG USE?YES MEDICAL MARIJUANA HOW OFTEN AND HOW MUCH? ABOUT EVERY OTHER DAY, HASN'T USED IN A WHILE, CAN'T AFFORD IT. CAFFEINE CAFFEINE USE?YES HOW OFTEN AND HOW MUCH? 3 PER DAY UATSDIN [id number] RELIGION LANGUAGE LANGUAGES SPOKEN:YEMENI EDUCATION LEVEL OF EDUCATION:NOT FINISHED COLLEGE GED LEARNING BARRIERS / SPECIAL NEEDS CHANGE FROM LAST VISIT?NO BARRIERS TO LEARNING?NO HEARING IMPAIRED?NO STATES HEARING IS SOMEWHAT IMPAIRED, ESPECIALLY IF THERE IS A LOT OF BACKGROUND NOISE, IE AT A RESTAURANT VISION IMPAIRED?YES WEARS GLASSES :CORRECTIVE LENSES COGNITIVELY IMPAIRED?NO READINESS TO LEARN?YES LEARNING PREFERENCES?NO LEARNING CAPABILITIES PRESENT?YES EMOTIONAL BARRIERS?NO SPECIAL DEVICES?NO SUPERINTENDENT MARINE NEEDED?NO DOMESTIC VIOLENCE DO YOU FEEL SAFE IN YOUR ENVIRONMENT?YES 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 DIET: REGULAR. MARITAL STATUS: SINGLE. OTHERS AT HOME: LIVES WITH OTHERS, APARTMENT. PATIENT DESCRIBES PAIN :ACHING, HAVE IT ALL THE TIME, STABBING WAKES FROM SLEEP FROM 0-10, WHAT LEVEL IS YOUR PAIN TODAY?8 PRECIPITATING FACTORS WORSE WITH ACTIVITY ALLEVIATING FACTORS HYDROCODONE - HAS THE PATIENT BEEN EDUCATED REGARDING HIS/HER PLAN OF CARE?YES HAS THE PATIENT BEEN EDUCATED REGARDING PAIN, THE RISK FOR PAIN, THE IMPORTANCE OF EFFECTIVE PAIN MANAGEMENT, AND THE PAIN ASSESSMENT PROCESS?YES HOUSING: RENTS APARTMENT. ADVANCE DIRECTIVE ADVANCE DIRECTIVE DISCUSSED WITH PATIENT:YES PT DOES NOT HAVE ANY ADVANCED DIRECTIVES AND HE DECLINES INFORMATION ON HCP AT THIS TIME REVIEW OF SYSTEMS CONSTITUTIONAL: ANY RECENT FEVER NO . CHILLS NO . WEIGHT CHANGE OF UNKNOWN REASONS NO . GASTROENTEROLOGY: NEW UNEXPLAINABLE CHANGES IN BOWEL CONTROL NO . CONSTIPATION NO . GENITOURINARY: ANY NEW CHANGE IN BLADDER CONTROL? NO . NEUROLOGY: NEW ONSET DIZZINESS OR NEUROLOGICAL CHANGES NOT MENTIONED NO . NEW NUMBNESS OR PAIN PATTERNS NOT MENTIONED AND PERTINENT TO TODAY'S VISIT NO . CARDIOLOGY: NEW CHEST PRESSURE NO . PATIENT DENIES NO . RESPIRATORY: UNEXPLAINABLE COUGH NO . NEW SHORTNESS OF BREATH NO . VITAL SIGNS WT 340.2 LBS, HT 68 IN, BMI 51.72 INDEX, BP 161/94 MM HG, REPEAT BP 142/77 MM HG, HR 107 /MIN, RR 20 /MIN, TEMP 98.8 F, OXYGEN SAT % 95%, SAFE IN ENV? (Y/N) YES, NA INITIALS [place] 09:51T.SHBOHA GIBSON. EXAMINATION GENERAL EXAMINATION: GENERAL AWAKE,ALERT ,PLEASANT . PSYCH AFFECT NORMAL . LUNGS: LUNG DE [place] ARE CLEAR TO AUSCULTATION BILATERALLY. GOOD MOVEMENT OF AIR . HEART: S1, S2 IN A REGULAR RATE AND RHYTHM. NO SIGNIFICANT MURMURS, RUBS OR GALLOPS NOTED . LUMBAR:PALPATION: + FOR PAIN OVER L/S SPINE. + FOR PAIN OVER L/S PARASPINALS SLE: POSITIVE OVER LEFT LEG AT 45 DEGREES. DIAGNOSTIC TESTS REVIEWED MRI L/S SPINE-05/2018. ASSESSMENTS LUMBAR SPONDYLOSIS - M47.816 (PRIMARY) PROTRUSION OF LUMBAR INTERVERTEBRAL DISC - M51.26 TREATMENT LUMBAR SPONDYLOSIS MEDICATION: VALIUM TAB 10MG ORALLY (DIAZEPAM) (ORDERED FOR 08/09/2020) MEDICATION: OXYCODONE HCL TAB 10MG ORALLY (ORDERED FOR 08/09/2020) NOTES: LUMBAR EPIDURAL STERIOD INJECTION REVIEWED PRE PROCEDURE INFORMATION, PATIENT VERBALIZED UNDERSTANDING KEE GIBSON. PROCEDURE CODES FA211 ESTABILISHED [facility] DISPOSITION & COMMUNICATION FOLLOW UP POST (REASON: LUMBAR EPIDURAL STERIOD INJECTION) ELECTRONICALLY SIGNED BY FREDERICK EVANS ON 07/26/2020 AT 08:39 PM EDT DISCLAIMER : THIS IS A VISIT SUMMARY EXTRACTED FROM THE [employer] CHART. IT IS NOT A COPY OF THE [employer] PROGRESS NOTE. [facility]
== END ==
LOC: M PAIN 09:45
PROVIDERS: ATTEND Nurse Practitioner Family
DX: M47.816 Spondylosis without myelopathy or radiculopathy, lumbar region (principal); M51.26 Other intervertebral disc displacement, lumbar region; G47.33 Obstructive sleep apnea (adult) (pediatric); F41.9 Anxiety disorder, unspecified; F32.9 Major depressive disorder, single episode, unspecified; G47.00 Insomnia, unspecified; F43.10 Post-traumatic stress disorder, unspecified; I10 Essential (primary) hypertension; E78.5 Hyperlipidemia, unspecified; G43.909 Migraine, unspecified, not intractable, without status migrainosus; M79.7 Fibromyalgia; M06.9 Rheumatoid arthritis, unspecified; J30.1 Allergic rhinitis due to pollen; K21.9 Gastro-esophageal reflux disease without esophagitis; Z87.891 Personal history of nicotine dependence; Z79.82 Long term (current) use of aspirin; Z79.891 Long term (current) use of opiate analgesic; Z79.899 Other long term (current) drug therapy; Z91.030 Bee allergy status

== ENCOUNTER → 2020-08-20 | Outpatient (CLI) | payer BC | LOC: M LABSMTC 08:25 | PROVIDERS: ATTEND Anesthesiology | DX: Z11.52 Encounter for screening for COVID-19 (principal) ==

== ENCOUNTER → 2020-08-25 | Outpatient (CLI) | payer BC ==
[~2020-08-25] MED LIST changes: +AMLO1TAB25; +APPLTAB2 PO; +ATOM25CA7; +BUPR1TAB52; +CALC600C3 PO; +CLAR10CA3 PO; +COQ150CH PO; +CORICAP PO; +CYAN100050 PO; +D31000TA2 PO; +ECOT81TA5 PO; +FLUTISP; +GABA-282; +GRAP50CA3 PO; +HYDR-3713; +HYDR12.55; +LAMO100T3; +LORA2TAB14; +OMEP-218; +POTA99TA14 PO; +PRAV20TA2; +PRAZ1CAP; +QUET100T2; +RA M500C PO; +SERT25TA21; +SILD100T; +TRAZ-252; +VALS1TAB68; +VITA500C19 PO; +VITMTA PO; +[UNRECOGNIZED DRUG - CODE] PO
--- NOTE | 2020-08-25 10:31 | REP ---
INDICATION: LUMBAR EPIDURAL STEROID INJECTION. COMPARISON: None. TECHNIQUE: Three views. 6.8 seconds of fluoroscopy time is reported. FINDINGS: A sequence of 3 last image hold fluoroscopically obtained spot radiograph(s) of the lumbar spine document(s) needle position(s) and contrast injection associated with injection procedure. IMPRESSION: Procedural imaging. <Electronically signed by Reinaldo Brenner > 08/25/20 1023
--- NOTE | 2020-08-26 02:56 | ECWPNPC ---
PATIENT NAME: BROCK ARTEAGA : 1980 GENDER: MALE VISIT DATE: 08/25/2020 DISCHARGE DATE: 08/25/20 1043 VISIT LOCKED DATE TIME: PHYSICIAN: ETHAN MURILLO MD RESOURCE: ETHAN MURILLO MD REASON FOR APPOINTMENT 1. LUMBAR EPIDURAL STERIOD INJECTION HISTORY OF PRESENT ILLNESS GENERAL: -. FALL RISK SCREENING: SCREENING :STATES HE HAS FALLEN SEVERAL TIMES. "LEGS JUST GIVE OUT" NO INJURIES AND NOT EVALUATED AFTER ANY OF THE FALLS. PAIN SCREENING: PATIENT HAS A COMPLAINT OF ACUTE OR CHRONIC PAIN :YES LOCATION OF PAIN:LOW BACK, OTHER: STATES HE HAS PAIN ALL OVER HIS BODY INTENSITY OF PAIN (SCALE OF 1 TO 10):9 WHAT DOES YOUR PAIN FEEL LIKE:CONTINOUS, SHARP, STABBING, TENDER, SORE DURATION:CONTINOUS, CONSTANT HAS TROUBLE FALLING TO SLEEP DUE TO THE PAIN PAIN IS INCREASED BY:ACTIVITIES, PROLONGED STANDING, OTHERS PROLONGED SITTING PAIN IS DECREASED BY:USE OF PAIN MEDICATIONS, OTHERS TENS UNIT, MASSAGE, HEAT PAIN HAS INTERFERED WITH THE FOLLOWING: PRETTY MUCH EVERYTHING NURSING NOTE: -. PAIN CENTER INTAKE QUESTIONS: DO YOU HAVE A HISTORY OF MRSA? :NO DO YOU TAKE A BLOOD THINNERS? :NO DO YOU HAVE ANY BLEEDING DISORDERS? :NO ANY NEW NUMBNESS OR WEAKNESS IN YOUR LEGS OR ARMS? :NO ANY PACEMAKER,DEFIBRILLATOR, OR DORSAL COLUMN STIMULATOR? :NO DO YOU HAVE ANY RASHES OR OPEN SORES? :NO ARE YOU ALLERGIC TO IV DYE? :NO ARE YOU DIABETIC? :NO PRE-DIABETIC ANY NEW PROBLEMS WITH YOUR MEDICATIONS? :NO HAVE YOU RECEIVED A VACCINE IN THE PAST 30 DAYS? :NO DO YOU PLAN TO RECEIVE A VACCINE IN THE NEXT 21 DAYS? :YES IF SO WHAT VACCINE AND WHEN? SHINGLES-AWARE NOT TO HAVE IT 2 WEEKS BEFORE OR AFTER THE PROOCEDURE DO YOU TAKE ANY IMMUNOSUPPRESSIVE MEDICATIONS? :NO ANY HISTORY OF SEIZURES? :NO ANY HISTORY OF CARDIAC ISSUES OR EVENTS? :NO DO YOU HAVE ANY KIDNEY OR LIVER DISEASE? :YES KIDNEY STONES DO YOU HAVE SLEEP APNEA? :YES DO YOU WEAR A CPAP?YES ANY RECENT HEAD INJURY? :NO DO YOU HAVE ANY NEW INFECTIONS? :NO IS THERE A CHANCE YOU COULD BE ? :NO ARE YOU BREAST FEEDING? :NO WHEN DID YOU LAST EAT? : 08/24 2029 WHEN DID YOU LAST DRINK? : 08/24 2129 WHAT DID YOU LAST DRINK? : WATER NAME OF PERSON DRIVING YOU HOME? : [facility] DO YOU HAVE ANY OTHER QUESTIONS OR CONCERNS? : - CURRENT MEDICATIONS TAKING OMEPRAZOLE 20 MG CAPSULE DELAYED RELEASE 1 CAPSULE ORALLY ONCE A DAY TAKING MAGNESIUM 500 MG TABLET 1 TABLET WITH A MEAL ORALLY ONCE A DAY TAKING GABAPENTIN 300 MG CAPSULE 1 CAPSULE ORALLY ONE IN AM, ONE AT NOON, ONE AT DINNER, TWO AT BEDTIME TAKING WELLBUTRIN 100 MG TABLET ORALLY BID TAKING LAMOTRIGINE 100 MG TABLET 1 TABLET ORALLY BID TAKING TRAZODONE HCL 50 MG TABLET 3 TABLETS AT BEDTIME ORALLY ONCE A DAY, NOTES: 08/24 2129 TAKING SEROQUEL 100 MG TABLET 2 TABLETS AT BEDTIME ORALLY ONCE A DAY, NOTES: 08/24 2129 TAKING STRATTERA 25 MG CAPSULE 1 CAPSULE IN THE MORNING ORALLY ONCE A DAY, NOTES: 08/24 999 TAKING PRAZOSIN HCL 1 MG CAPSULE 1 CAPSULE AT BEDTIME ORALLY ONCE A DAY TAKING HYDROCODONE-ACETAMINOPHEN 5-325 MG TABLET 1 TABLETS ORALLY BEFORE BEDTIME, NOTES: 08/24 2129 TAKING ATIVAN 2 2MG TABLET ORAL THREE TIMES DAILY NEEDED, NOTES: 08/24 1829 TAKING MULTIVITAMIN ADULTS 50+ _ TABLET 2 GUMMIES ORALLY DAILY TAKING ASPIRIN 81 81 MG TABLET DELAYED RELEASE 1 TABLET ORALLY ONCE A DAY TAKING PRAVASTATIN SODIUM 40 MG TABLET 2 TABLETS ORALLY ONCE A DAY TAKING VITAMIN B-12 1000 MCG TABLET 1 TABLET ORALLY DAILY TAKING VITAMIN C 1000 MG TABLET 1 TABLET ORALLY DAILY TAKING POTASSIUM 99 MG TABLET 1 TABLET ORALLY ONCE A DAY TAKING CO Q 10 _ CAPSULE 400 MGS 1 CAPSULE WITH A MEAL ORALLY ONCE A DAY TAKING CALCIUM + D3 600-800 MG-UNIT TABLET 1 TABLET WITH A MEAL ORALLY BID TAKING GRAPE SEED EXTRACT _ CAPSULE 500MGS 1CAP ORALLY DAILY TAKING SERTRALINE HCL 25 MG TABLET 1 TABLET ORALLY ONCE A DAY TAKING AMLODIPINE BESYLATE 10 MG TABLET 1 TABLET ORALLY ONCE A DAY, NOTES: 08/24 1829 TAKING FLAX SEED OIL _ CAPSULE 1200 MGS 1 CAP ORALLY DAILY TAKING BENADRYL 25 MG CAPSULE 2 CAP ORALLY BEFORE BEDTIME TAKING HYDROCHLOROTHIAZIDE 12.5 MG CAPSULE 2 CAPSULE IN THE MORNING ORALLY ONCE A DAY TAKING APPLE CIDER VINEGAR - TABLET 480 MGS 1 TAB ORALLY DAILY TAKING VALSARTAN 320 MG TABLET 1 TABLET ORALLY ONCE A DAY, NOTES: 08/24 999 TAKING VIAGRA 100 MG TABLET 1 TABLET NEEDED ORALLY ONCE A DAY TAKING VITAMIN D3 125 MCG (5000 UT) CAPSULE 1 CAPSULE ORALLY DAILY TAKING FLONASE ALLERGY RELIEF 50 MCG/ACT SUSPENSION 1 SPRAY IN EACH NOSTRIL NASALLY ONCE A DAY TAKING CORICIDIN HBP 10-325-2 MG TABLET 2 TABLETS EVERY 4 HOURS NEEDED ORALLY FIVE TIMES A DAY TAKING LORATADINE 10 MG TABLET 1 TABLET ORALLY ONCE A DAY NOT-TAKING LOSARTAN POTASSIUM 50 MG TABLET 2 TABLETS ORALLY ONCE A DAY NOT-TAKING KETOROLAC TROMETHAMINE 10 MG TABLET 1 TABLET WITH FOOD OR MILK NEEDED ORALLY EVERY 6 HRS NOT-TAKING IMIPRAMINE HCL 10 MG TABLET 1 TABLET ORALLY BID NOT-TAKING CIALIS 10 MG TABLET 1 TABLET NEEDED ORALLY MEDICATION LIST REVIEWED AND RECONCILED WITH THE PATIENT PAST MEDICAL HISTORY URI ON CPAP ANXIETY DEPRESSION INSOMNIA PTSD ADD HTN DYSLIPIDEMIA MIGRAINE FIBROMYALGIA CARPAL TUNNEL RHEUMATOID ARTHRITIS GERD KIDNEY STONES LOW BACK PAIN ALLERGIES BEES: FACE SWELLS - ALLERGY CUT GRASS: HIVES - ALLERGY TIZANIDINE HCL: PASSED OUT - ALLERGY SOCIAL HISTORY GENERAL: TOBACCO USE ARE YOU A:FORMER SMOKER 2 YEARS HOW LONG HAS IT BEEN SINCE YOU LAST SMOKED?1-5 YEARS LATEX QUESTIONNAIRE LATEX ALLERGY : HAVE YOU EVER DEVELOPED ANY TYPE OF REACTION AFTER HANDLING LATEX PRODUCTS SUCH RUBBER GLOVES, CONDOMS, DIAPHRAGMS, BALLOONS, SOCKS, OR UNDERWEAR?NO LATEX ALLERGY : HAVE YOU EVER DEVELOPED ANY TYPE OF REACTION DURING OR AFTER DENTAL APPOINTMENT, VAGINAL/RECTAL EXAMINATION, SURGICAL PROCEDURE, OR ANY OTHER EXPOSURE?NO LATEX RISK : HAVE YOU EVER HAD ANY DIFFICULTY BREATHING OR HIVES AFTER EATING OR HANDLING ANY FRUITS, OR VEGETABLES; SUCH KIWI, BANANAS, STONE FRUITS, OR CHESTNUTSNO LATEX RISK : DO YOU HAVE A PREVIOUS PERSONAL HISTORY OF MORE THAN NINE SURGERIES, SPINA BIFIDA, OR REPEATED CATHERIZATIONS? NO LATEX RISK : ARE YOU FREQUENTLY EXPOSED TO LATEX PRODUCTS IN YOUR OCCUPATION?NO DATE ASKED : 08/22/2020 ALCOHOL USE: YES. ALCOHOL SCREENING DID YOU HAVE A DRINK CONTAINING ALCOHOL IN THE PAST YEAR?YES HOW OFTEN DID YOU HAVE SIX OR MORE DRINKS ON ONE OCCASION IN THE PAST YEAR?NEVER (0 POINTS) HOW MANY DRINKS DID YOU HAVE ON A TYPICAL DAY WHEN YOU WERE DRINKING IN THE PAST YEAR?1 OR 2 (0 POINTS) HOW OFTEN DID YOU HAVE A DRINK CONTAINING ALCOHOL IN THE PAST YEAR?TWO TO FOUR TIMES A MONTH (2 POINTS) POINTS2 INTERPRETATIONNEGATIVE RECREATIONAL DRUG USE: YES DRUG USE?YES MEDICAL MARIJUANA HOW OFTEN AND HOW MUCH? ABOUT EVERY OTHER DAY, HASN'T USED IN A WHILE, CAN'T AFFORD IT. CAFFEINE CAFFEINE USE?YES HOW OFTEN AND HOW MUCH? 3 PER DAY LUTHERAN [id number] CONGREGATIONAL LANGUAGE LANGUAGES SPOKEN:KHMER EDUCATION LEVEL OF EDUCATION:NOT FINISHED COLLEGE GED LEARNING BARRIERS / SPECIAL NEEDS CHANGE FROM LAST VISIT?NO BARRIERS TO LEARNING?NO HEARING IMPAIRED?NO STATES HEARING IS SOMEWHAT IMPAIRED, ESPECIALLY IF THERE IS A LOT OF BACKGROUND NOISE, IE AT A RESTAURANT VISION IMPAIRED?YES WEARS GLASSES :CORRECTIVE LENSES COGNITIVELY IMPAIRED?NO READINESS TO LEARN?YES LEARNING PREFERENCES?NO LEARNING CAPABILITIES PRESENT?YES EMOTIONAL BARRIERS?NO SPECIAL DEVICES?NO WICKER WORKER NEEDED?NO DOMESTIC VIOLENCE DO YOU FEEL SAFE IN YOUR ENVIRONMENT?YES 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 DIET: REGULAR. MARITAL STATUS: SINGLE. OTHERS AT HOME: LIVES WITH OTHERS, APARTMENT. PATIENT DESCRIBES PAIN :ACHING, HAVE IT ALL THE TIME, STABBING WAKES FROM SLEEP FROM 0-10, WHAT LEVEL IS YOUR PAIN TODAY?8 PRECIPITATING FACTORS WORSE WITH ACTIVITY ALLEVIATING FACTORS HYDROCODONE - HAS THE PATIENT BEEN EDUCATED REGARDING HIS/HER PLAN OF CARE?YES HAS THE PATIENT BEEN EDUCATED REGARDING PAIN, THE RISK FOR PAIN, THE IMPORTANCE OF EFFECTIVE PAIN MANAGEMENT, AND THE PAIN ASSESSMENT PROCESS?YES HOUSING: RENTS APARTMENT. ADVANCE DIRECTIVE ADVANCE DIRECTIVE DISCUSSED WITH PATIENT:YES PT DOES NOT HAVE ANY ADVANCED DIRECTIVES AND HE DECLINES INFORMATION ON HCP AT THIS TIME VITAL SIGNS WT 330.0 LBS, HT 68 IN, BMI 50.17 INDEX, BP 136/86 MM HG, HR 101 /MIN, RR 20 /MIN, TEMP 97.5 F, OXYGEN SAT % 96%, SAFE IN ENV? (Y/N) Y, NA INITIALS AW 0844, REVIEWED BY: Prateek MARTINEZ RN. EXAMINATION GENERAL: A HISTORY AND PHYSICAL EXAM ON THE PATIENT WAS DONE ON 07/26/2020(DATE OF ORIGINAL ASSESSMENT) IN PREPARATION OF SURGERY/PROCEDURE. I HAVE NOW REASSESSED THIS PATIENT'S HEALTH STATUS AND PERFORMED AN UPDATED EXAM TODAY. ALL CHANGES IN THE PATIENT'S HISTORY, PHYSICAL EXAM, PRE-EXISTING CONDITONS, AND INDICATIONS/CONTRAINDICATIONS TO THE PLANNED PROCEDURE AND ANESTHESIA ARE DOCUMENTED AND EVALUATED BELOW. I ATTEST TO THE ADEQUACY AND APPROPRIATENESS OF MY ASSESSMENT, AND CONFIRM THE NECESSITY FOR THE PLANNED PROCEDURE. THE PATIENT IS ALERT, ORIENTED TIMES THREE AND COOPERATIVE. LUNGS ARE CLEAR TO AUSCULTATION. HEART SHOWS REGULAR RHYTHM, NO MURMURS AND NO GALLOPS. ASSESSMENTS INTERVERTEBRAL DISC DISORDERS WITH RADICULOPATHY, LUMBAR REGION - M51.16 (PRIMARY) TREATMENT INTERVERTEBRAL DISC DISORDERS WITH RADICULOPATHY, LUMBAR REGION COMPLETION OF PROCEDURAL VISIT WHEN MEETS CRITERIADEEPI STILES 08/25/2020 10:41:22 AM > CRITERIA MET OTHERS NOTES: 08/22/20 1757 PRE-PROCEDURE CALL COMPLETED. Prateek MARTINEZ RN . PROCEDURES PAIN NURSING RECORD PROCEDURE IN ROOM 0941, PHYSICIAN IN ROOM 0957, START 0959, FINISH 1003, PHYSICIAN OUT OF ROOM 1004, OUT OF ROOM 1014 VIA STRETCHER, ECG NORMAL SINUS, PATIENT SHIELDED YES, SAFETY STRAP YES, PREP BETADINE Prateek MARTINEZ RN, DRESSING TEGADERM DR. MURILLO LOC: EPI MARTINEZ 08/25/2020 9:18:57 AM > 1. ALERT, ORIENTED EPI MARTINEZ 08/25/2020 10:24:24 AM > 1. ALERT, ORIENTED RESP: EPI MARTINEZ 08/25/2020 9:19:02 AM > 1. REGULAR, NO DYSPNEA EPI MARTINEZ 08/25/2020 10:24:34 AM > 1. REGULAR, NO DYSPNEA COLOR: EPI MARTINEZ 08/25/2020 9:19:06 AM > 1. PINK EPI MARTINEZ 08/25/2020 10:24:46 AM > 1. PINK SKIN: EPI MARTINEZ 08/25/2020 9:19:10 AM > 1. WARM, DRY EPI MARTINEZ 08/25/2020 10:24:51 AM > 1. WARM, DRY POSITION: EPI MARTINEZ 08/25/2020 9:19:16 AM > 5. SITTING EPI MARTINEZ 08/25/2020 9:42:14 AM > 1. PRONE EPI MARTINEZ 08/25/2020 10:24:57 AM > EPI MARTINEZ 08/25/2020 10:24:58 AM > 2. SUPINE VITALS: AW 0925 P95 02 96% BP 132/81 R 18 EPI MARTINEZ 08/25/2020 9:46:27 AM > 139/92,84,18,93% EPI MARTINEZ 08/25/2020 10:00:55 AM > 134/77,84,16,94% EPI MARTINEZ 08/25/2020 10:08:37 AM > 150/68,78,16,95% EPI MARTINEZ 08/25/2020 10:25:05 AM > 126/70,81,16,94% NOTES 0945 RED RAISED AREA NOTED RIGHT LUMBAR. DR. MURILLO IN TO EXAMINE AREA. OKAY TO PROCEDE WITH PROCEDURE. PHOTO TAKEN OF AREA. COMPLETION OF PROCEDURE APPOINTMENT: POST PAIN 9, DRESSING SITE DRY AND INTACT, IV N/A, GAIT STEADY, TEACHING COMPLETED, PATIENT ACKNOWLEDGES UNDERSTANDING YES, PROCEDURE APPOINTMENT COMPLETED AT 1039 PRE PROCEDURE DIAGNOSIS LUMBAR DISC DISORDER WITH RADICULOPATHY POST PROCEDURE DIAGNOSIS LUMBAR DISC DISORDER WITH RADICULOPATHY PROCEDURE LUMBAR EPIDURAL STEROID INJECTION UNDER FLUOROSCOPIC GUIDANCE SURGEON DR. ETHAN MURILLO TOOL ANALYST NONE ANESTHESIA LOCAL PRE PROCEDURE NOTE THE PATIENT HAS A HISTORY OF CHRONIC LOW BACK PAIN. I EVALUATED THE PATIENT AND REVIEWED THE CHART. I WENT OVER THE RISKS, ALTERNATIVES, AND BENEFITS ASSOCIATED WITH THIS PROCEDURE. THE PATIENT WOULD LIKE TO PROCEED AND GIVE CONSENT TO PERFORMED THE PROCEDURE. THE PATIENT DENIES UNEXPLAINABLE WEIGHT LOSS, FEVER, CHILLS, OR NEW CHANGES IN URINARY OR BOWEL CONTROL. THE PATIENT IS COVID-19 NEGATIVE DESCRIPTION OF PROCEDURE THE PATIENT WAS BROUGHT TO THE PROCEDURE ROOM AND PLACED IN THE PRONE POSITION. THE LUMBOSACRAL AREA WAS CLEANED WITH BETADINE SOLUTION AND DRAPED ASEPTICALLY. THE PROCEDURE WAS DONE UNDER STERILE CONDITIONS. A TIMEOUT WAS PERFORMED WHERE THE CONSENTED SITE WAS VERIFIED WITH EVERYONE IN THE ROOM. UNDER FLUOROSCOPIC GUIDANCE, THE TARGET POINT WAS SELECTED AT THE INTERLAMINAR LEVEL OF L4-L5. I CONFIRMED AGAIN THE SITE OF TARGET. LIDOCAINE WAS USED TO NUMB THE SKIN AND THE SUBCUTANEOUS TISSUE BELOW IT. EPIDURAL TUOHY NEEDLE, 17-GAUGE, WAS ADVANCED UNDER FLUOROSCOPIC GUIDANCE AND FOLLOWING PATIENT FEEDBACK UNTIL THE EPIDURAL SPACE WAS REACHED 11 CM DEEP INTO THE SKIN BY THE LOSS OF RESISTANCE TECHNIQUE. ISOVUE-M DYE 30%, 0.25 ML, WAS INJECTED SHOWING ADEQUATE SPREAD OF THE DYE. THEN, A SOLUTION OF 3 ML OF NORMAL SALINE WITH DEPO-MEDROL 40 MG WAS INJECTED SLOWLY FOLLOWING PATIENT FEEDBACK. THE MEDICATIONS WERE VERIFIED WITH THE NURSE. THERE WAS NO EVIDENCE OF BLOOD, PARESTHESIA OR CEREBROSPINAL FLUID DURING THE PROCEDURE. THE PATIENT WAS SENT TO THE RECOVERY ROOM. THE PATIENT WAS MOVING THE EXTREMITIES AND DOING WELL. THERE WERE NO COMPLICATIONS DURING THE PROCEDURE. ESTIMATED BLOOD LOSS WAS LESS THAN 5 ML. FLUOROSCOPY TIME WAS 7 SECONDS POST PROCEDURE NOTE THE PATIENT HAS A GROWTH ON HIS BACK. I TOLD HIM TO WATCH IT AND POSSBILY DISCUSS IT WITH HIS PRIMARY. IT WAS NOT IN THE AREA WHERE I INJECTED. IF THE PAIN PERSITS, CONSIDER A TRANSFORAMINAL EPIDURAL. THE PATIENT WILL BE SEEN IN A FOLLOW UP IN THE NEXT FEW WEEKS. I AM LOOKING FOR LONG LASTING RELIEF FOR THE PATIENT WITH THIS INTERVENTION. INSTRUCTIONS WERE GIVEN, QUESTIONS WERE ANSWERED, AND THE PATIENT EXPRESSED UNDERSTANDING AND AGREES WITH THE PLAN. I, NIRMALA SRIVASTAVA, DOCUMENTED THE ABOVE INFORMATION ACTING A SCRIBE FOR DR. MURILLO. I HAVE REVIEWED THE ABOVE DOCUMENT, WRITTEN BY NIRMALA SRIVASTAVA, PREPARATORY TECHNICIAN, AND I VERIFY THAT IT IS [facility] FLUORO GUIDE SPINE INJECTION (PAIN)[id number] PROCEDURE CODES 07506 LUMBAR/SACRAL W/ IMAGING DISPOSITION & COMMUNICATION FOLLOW UP FOLLOW UP WITH STUNNER (REASON: POST LUMBAR EPIDURAL STEROID INJECTION) ELECTRONICALLY SIGNED BY ETHAN MURILLO MD, MD ON 08/25/2020 AT 12:37 PM EDT DISCLAIMER : THIS IS A VISIT SUMMARY EXTRACTED FROM THE [employer] CHART. IT IS NOT A COPY OF THE [employer] PROGRESS NOTE. [facility]
== END ==
LOC: M PAIN 08:30
PROVIDERS: ATTEND Anesthesiology
DX: M51.16 Intervertebral disc disorders with radiculopathy, lumbar region (principal); G47.33 Obstructive sleep apnea (adult) (pediatric); F41.9 Anxiety disorder, unspecified; F32.9 Major depressive disorder, single episode, unspecified; G47.00 Insomnia, unspecified; F43.10 Post-traumatic stress disorder, unspecified; I10 Essential (primary) hypertension; E78.5 Hyperlipidemia, unspecified; G43.909 Migraine, unspecified, not intractable, without status migrainosus; M79.7 Fibromyalgia; M06.9 Rheumatoid arthritis, unspecified; K21.9 Gastro-esophageal reflux disease without esophagitis; Z87.891 Personal history of nicotine dependence; Z79.891 Long term (current) use of opiate analgesic; Z79.899 Other long term (current) drug therapy; J30.1 Allergic rhinitis due to pollen; Z91.030 Bee allergy status; Z88.8 Allergy status to other drugs, medicaments and biological substances
CPT/HCPCS: 62323; J1030; Q9967

== ENCOUNTER → 2020-09-02 | Outpatient (CLI) | payer BC ==
[~2020-09-02] MED LIST changes: -ISOVUE-M 300 61% 15ML VIAL As Ordered ONE; -LIDOCAINE 1% SDV 30ML VIAL As Ordered ONE; -diazePAM 5MG TABLET As Ordered ONE; -methylPREDNISolone SUSP 40MG/ML 1ML VIAL (DEPO MEDROL) As Ordered ONE; -oxyCODONE 5MG TAB As Ordered ONE
== END ==
LOC: M LABSMTC 10:40
PROVIDERS: ATTEND Anesthesiology
DX: Z01.818 Encounter for other preprocedural examination (principal); Z11.52 Encounter for screening for COVID-19

== ENCOUNTER 2020-09-07 08:11 | Day surgery (SDC) | payer BC ==
[~2020-09-07] VITALS: Ht 195.6 cm; Wt 150.1 kg
[~2020-09-07 08:11] MED LIST changes: +NS 1,000 ML IV ONE
[2020-09-07] MEDS ORDERED: LIDOCAINE 2% 100MG/5ML SDV (FOR ANES.) As Ordered ONE (08:46)
[2020-09-07] MEDS ORDERED: propofoL 200 MG/20 ML VIAL As Ordered ONE (08:46)
[2020-09-07] MEDS ORDERED: fentaNYL 100 MCG/2 ML INJECTION (J3010) As Ordered ONE (08:46)
--- NOTE | 2020-09-07 09:07 | ROOR ---
Patient Name: Juan Hall Procedure Date: 09/07/2020 8:54 AM Date of : 1980 Age: 39 Room: [facility] Gender: Male Note Status: Finalized Procedure: Upper Endoscopy + Biopsies Indications: Heartburn, Exclusion of Faustin's esophagus Providers: Michael Tee MD Referring MD: AGUSTINA Zafar Requesting Provider: Medicines: Monitored Anesthesia Care Complications: No immediate complications. Procedure: Pre-Anesthesia Assessment: - The heart rate, respiratory rate, oxygen saturations, blood pressure, adequacy of pulmonary ventilation, and response to care were monitored throughout the procedure. The Endoscope was introduced through the mouth, and advanced to the second part of duodenum. The upper GI endoscopy was accomplished without difficulty. The patient tolerated the procedure well. Findings: The Z-line was regular and was found 45 cm from the incisors. Multiple biopsies were obtained with cold forceps for evaluation to rule out Faustin's Esophagus randomly at the gastroesophageal junction. No other significant abnormalities were identified in a careful examination of the stomach. The exam of the duodenum was otherwise normal. Impression: - Z-line regular, 45 cm from the incisors. - Multiple biopsies were obtained at the gastroesophageal junction. - The examination was otherwise normal. Recommendation: - Patient has a contact number available for emergencies. The signs and symptoms of potential delayed complications were discussed with the patient. Return to normal activities tomorrow. Written discharge instructions were provided to the patient. - Resume previous diet. - Discharge patient to home. - Follow an antireflux regimen. - Continue present medications. - Await pathology results. - Telephone GI clinic for pathology results in 1 week. - Repeat upper endoscopy for surveillance based on pathology results. - Return to referring physician. - The findings and recommendations were discussed with the patient's family. Procedure Code(s): --- Professional --- 72810, Esophagogastroduodenoscopy, flexible, transoral; with biopsy, single or multiple Diagnosis Code(s): --- Professional --- R12, Heartburn CPT copyright 2019 [employer]. All rights reserved. The codes documented in this report are preliminary and upon consumer safety inspector review may be revised to meet current compliance requirements. Michael Tee MD Michael Tee MD 09/07/2020 9:07:00 AM Electronically signed by Michael Tee MD Number of Addenda: 0 Note Initiated On: 09/07/2020 8:54 AM Estimated Blood Loss: Estimated blood loss: none.
--- NOTE | 2020-09-07 09:27 | ROOR ---
Patient Name: Juan Hall Procedure Date: 09/07/2020 8:56 AM Date of : 1980 Age: 39 Room: [facility] Gender: Male Note Status: Finalized Procedure: Total Colonoscopy to Cecum + Biopsy Polypectomy + Clip Indications: Rectal bleeding, Change in bowel habits Providers: Michael Tee MD Referring MD: AGUSTINA Zafar Requesting Provider: Medicines: Monitored Anesthesia Care Complications: No immediate complications. Procedure: Pre-Anesthesia Assessment: - The heart rate, respiratory rate, oxygen saturations, blood pressure, adequacy of pulmonary ventilation, and response to care were monitored throughout the procedure. The Colonoscope was introduced through the anus and advanced to the cecum, identified by appendiceal orifice and ileocecal valve. The colonoscopy was performed without difficulty. The patient tolerated the procedure well. The quality of the bowel preparation was good. Findings: The perianal and digital rectal examinations were normal. Non-bleeding internal hemorrhoids were found during retroflexion. The hemorrhoids were small and Grade I (internal hemorrhoids that do not prolapse). A small polyp was found in the cecum. The polyp was sessile. The polyp was removed with a cold biopsy forceps. Resection and retrieval were complete. To prevent bleeding after the polypectomy, one hemostatic clip was successfully placed. There was no bleeding at the end of the procedure. No other significant abnormalities were identified in a careful examination of the remainder of the colon. The exam was otherwise without abnormality on direct and retroflexion views. Impression: - Non-bleeding internal hemorrhoids. - One small polyp in the cecum, removed with a cold biopsy forceps. Resected and retrieved. Clip was placed. - The examination was otherwise normal on direct and retroflexion views. - The exam was otherwise normal to the cecum. Recommendation: - Patient has a contact number available for emergencies. The signs and symptoms of potential delayed complications were discussed with the patient. Return to normal activities tomorrow. Written discharge instructions were provided to the patient. - High fiber diet. - Discharge patient to home. - Continue present medications. - Await pathology results. - Patient has a contact number available for emergencies. The signs and symptoms of potential delayed complications were discussed with the patient. Return to normal activities tomorrow. Written discharge instructions were provided to the patient. - Return to referring physician. - Repeat colonoscopy for surveillance based on pathology results. - The findings and recommendations were discussed with the patient's family. Procedure Code(s): --- Professional --- 85463, Colonoscopy, flexible; with biopsy, single or multiple Diagnosis Code(s): --- Professional --- K64.0, First degree hemorrhoids K63.5, Polyp of colon K62.5, Hemorrhage of anus and rectum R19.4, Change in bowel habit CPT copyright 2019 [employer]. All rights reserved. The codes documented in this report are preliminary and upon tobacco drying machine operator review may be revised to meet current compliance requirements. Michael Tee MD Michael Tee MD 09/07/2020 9:27:10 AM Electronically signed by Michael Tee MD Number of Addenda: 0 Note Initiated On: 09/07/2020 8:56 AM Estimated Blood Loss: Estimated blood loss: none.
[2020-09-07 09:51] VITALS: BP 103/57
== END 2020-09-07 09:52 | disposition home or self-care (01) ==
LOC: M OPP 08:11
PROVIDERS: ATTEND Internal Medicine Gastroenterology
DX: D12.0 Benign neoplasm of cecum (principal); K64.0 First degree hemorrhoids; K62.5 Hemorrhage of anus and rectum; R19.4 Change in bowel habit
CPT/HCPCS: 43239; 45380; 88305; J3010

== ENCOUNTER → 2020-09-08 | Outpatient (CLI) | payer BC ==
[~2020-09-08] MED LIST changes: -NS 1,000 ML IV ONE
--- NOTE | 2020-09-09 05:12 | ECWPNPC ---
PATIENT NAME: BROCK ARTEAGA : 1980 GENDER: MALE VISIT DATE: 09/08/2020 DISCHARGE DATE: 09/08/20 1047 VISIT LOCKED DATE TIME: PHYSICIAN: JANEL PIMENTEL RESOURCE: JANEL PIMENTEL REASON FOR APPOINTMENT 1. POST LUMBAR EPIDURAL STERIOD INJECTION HISTORY OF PRESENT ILLNESS GENERAL: HERE FOR POSTPROCEDURE FOLLOW-UP. HAD LUMBAR EPIDURAL STEROID INJECTION ON 08/25/2020. REPORTING NO IMPROVEMENT POST PROCEDURE. MRI OF THE LS SPINE IS REVIEWED. THIS IS SHOWING A LOT OF INFLAMMATORY PATHOLOGY. HE DOES HAVE AN APPOINTMENT WITH NEUROLOGY IN THE NEAR FUTURE DUE TO FREQUENT FALLING. HAS BEEN IN THE ER SEVERAL TIMES OVER THE PAST 2 WEEKS FOR KIDNEY STONES. HE IS IN A LOT OF PAIN TODAY. RATING PAIN LEVEL IS A 10/10 VAS. PAIN IS LOCATED ACROSS THE BACK AND IS CONSTANT. PAIN IS INTERRUPTING HIS SLEEP. PAIN RADIATES INTO HIS LEGS LEFT GREATER THAN RIGHT. DISCUSSED RHEUMATOLOGY REFERRAL. DISCUSSED LUMBAR FACET BLOCK VERSUS TRANSFORAMINAL EPIDURAL STEROID INJECTION. -. FALL RISK SCREENING: SCREENING COUPLE OF FALL THIS YEAR NO MAJOR INJURIES, DID NOT GO TO THE ER. PAIN SCREENING: PATIENT HAS A COMPLAINT OF ACUTE OR CHRONIC PAIN :YES LOCATION OF PAIN:LOW BACK INTENSITY OF PAIN (SCALE OF 1 TO 10):10 WHAT DOES YOUR PAIN FEEL LIKE:CONTINOUS, SHARP, SHOOTING DURATION:CONTINOUS, CONSTANT, ALL DAY PAIN IS INCREASED BY:ACTIVITIES PAIN IS DECREASED BY:OTHERS HEAT PAD, TENS UNIT NURSING NOTE: -. PAIN CENTER INTAKE QUESTIONS: DO YOU HAVE A HISTORY OF MRSA? :NO DO YOU TAKE A BLOOD THINNERS? :NO DO YOU HAVE ANY BLEEDING DISORDERS? :NO ANY NEW NUMBNESS OR WEAKNESS IN YOUR LEGS OR ARMS? :NO ANY PACEMAKER,DEFIBRILLATOR, OR DORSAL COLUMN STIMULATOR? :NO DO YOU HAVE ANY RASHES OR OPEN SORES? :NO ARE YOU ALLERGIC TO IV DYE? :NO ARE YOU DIABETIC? :NO PRE DIABETIC ANY NEW PROBLEMS WITH YOUR MEDICATIONS? :NO HAVE YOU RECEIVED A VACCINE IN THE PAST 30 DAYS? :NO DO YOU PLAN TO RECEIVE A VACCINE IN THE NEXT 21 DAYS? :YES SHINGLES NOT SURE OF THE DAY YET DO YOU NEED ANY PRESCRIPTION? :NO DO YOU TAKE ANY IMMUNOSUPPRESSIVE MEDICATIONS? :NO DO YOU HAVE ANY KIDNEY OR LIVER DISEASE? :NO KIDNEY STONES IS THERE A CHANCE YOU COULD BE ? :NO ARE YOU BREAST FEEDING? :NO CURRENT MEDICATIONS TAKING OMEPRAZOLE 20 MG CAPSULE DELAYED RELEASE 1 CAPSULE ORALLY ONCE A DAY TAKING MAGNESIUM 500 MG TABLET 1 TABLET WITH A MEAL ORALLY ONCE A DAY TAKING GABAPENTIN 300 MG CAPSULE 1 CAPSULE ORALLY ONE IN AM, ONE AT NOON, ONE AT DINNER, TWO AT BEDTIME TAKING WELLBUTRIN 100 MG TABLET ORALLY BID TAKING LAMOTRIGINE 100 MG TABLET 1 TABLET ORALLY BID TAKING TRAZODONE HCL 50 MG TABLET 3 TABLETS AT BEDTIME ORALLY ONCE A DAY, NOTES: 08/24 2129 TAKING SEROQUEL 100 MG TABLET 2 TABLETS AT BEDTIME ORALLY ONCE A DAY, NOTES: 08/24 2129 TAKING STRATTERA 25 MG CAPSULE 1 CAPSULE IN THE MORNING ORALLY ONCE A DAY TAKING PRAZOSIN HCL 1 MG CAPSULE 1 CAPSULE AT BEDTIME ORALLY ONCE A DAY TAKING HYDROCODONE-ACETAMINOPHEN 5-325 MG TABLET 1 TABLETS ORALLY BEFORE BEDTIME TAKING ATIVAN 2 2MG TABLET ORAL THREE TIMES DAILY NEEDED TAKING MULTIVITAMIN ADULTS 50+ _ TABLET 2 GUMMIES ORALLY DAILY TAKING ASPIRIN 81 81 MG TABLET DELAYED RELEASE 1 TABLET ORALLY ONCE A DAY TAKING PRAVASTATIN SODIUM 40 MG TABLET 2 TABLETS ORALLY ONCE A DAY TAKING VITAMIN B-12 1000 MCG TABLET 1 TABLET ORALLY DAILY TAKING VITAMIN C 1000 MG TABLET 1 TABLET ORALLY DAILY TAKING POTASSIUM 99 MG TABLET 1 TABLET ORALLY ONCE A DAY TAKING CO Q 10 _ CAPSULE 400 MGS 1 CAPSULE WITH A MEAL ORALLY ONCE A DAY TAKING CALCIUM + D3 600-800 MG-UNIT TABLET 1 TABLET WITH A MEAL ORALLY BID TAKING GRAPE SEED EXTRACT _ CAPSULE 500MGS 1CAP ORALLY DAILY TAKING SERTRALINE HCL 25 MG TABLET 1 TABLET ORALLY ONCE A DAY TAKING AMLODIPINE BESYLATE 10 MG TABLET 1 TABLET ORALLY ONCE A DAY TAKING FLAX SEED OIL _ CAPSULE 1200 MGS 1 CAP ORALLY DAILY TAKING BENADRYL 25 MG CAPSULE 2 CAP ORALLY BEFORE BEDTIME TAKING HYDROCHLOROTHIAZIDE 12.5 MG CAPSULE 2 CAPSULE IN THE MORNING ORALLY ONCE A DAY TAKING APPLE CIDER VINEGAR - TABLET 480 MGS 1 TAB ORALLY DAILY TAKING VALSARTAN 320 MG TABLET 1 TABLET ORALLY ONCE A DAY TAKING VIAGRA 100 MG TABLET 1 TABLET NEEDED ORALLY ONCE A DAY TAKING VITAMIN D3 125 MCG (5000 UT) CAPSULE 1 CAPSULE ORALLY DAILY TAKING FLONASE ALLERGY RELIEF 50 MCG/ACT SUSPENSION 1 SPRAY IN EACH NOSTRIL NASALLY ONCE A DAY TAKING CORICIDIN HBP 10-325-2 MG TABLET 2 TABLETS EVERY 4 HOURS NEEDED ORALLY FIVE TIMES A DAY TAKING LORATADINE 10 MG TABLET 1 TABLET ORALLY ONCE A DAY TAKING FLOMAX 0.4 MG CAPSULE 1 CAPSULE ORALLY ONCE A DAY, NOTES: KIDNEY STONES NOT-TAKING LOSARTAN POTASSIUM 50 MG TABLET 2 TABLETS ORALLY ONCE A DAY NOT-TAKING KETOROLAC TROMETHAMINE 10 MG TABLET 1 TABLET WITH FOOD OR MILK NEEDED ORALLY EVERY 6 HRS NOT-TAKING IMIPRAMINE HCL 10 MG TABLET 1 TABLET ORALLY BID NOT-TAKING CIALIS 10 MG TABLET 1 TABLET NEEDED ORALLY MEDICATION LIST REVIEWED AND RECONCILED WITH THE PATIENT PAST MEDICAL HISTORY URI ON CPAP ANXIETY DEPRESSION INSOMNIA PTSD ADD HTN DYSLIPIDEMIA MIGRAINE FIBROMYALGIA CARPAL TUNNEL RHEUMATOID ARTHRITIS GERD KIDNEY STONES LOW BACK PAIN 1ST COVID ND COVID 06/24/2020 COUPLE OF FALL THIS YEAR NO MAJOR INJURIES, DID NOT GO TO THE ER. ALLERGIES BEES: FACE SWELLS - ALLERGY CUT GRASS: HIVES - ALLERGY TIZANIDINE HCL: PASSED OUT - ALLERGY SOCIAL HISTORY GENERAL: TOBACCO USE ARE YOU A:FORMER SMOKER 2 YEARS HOW LONG HAS IT BEEN SINCE YOU LAST SMOKED?1-5 YEARS LATEX QUESTIONNAIRE LATEX ALLERGY : HAVE YOU EVER DEVELOPED ANY TYPE OF REACTION AFTER HANDLING LATEX PRODUCTS SUCH RUBBER GLOVES, CONDOMS, DIAPHRAGMS, BALLOONS, SOCKS, OR UNDERWEAR?NO LATEX ALLERGY : HAVE YOU EVER DEVELOPED ANY TYPE OF REACTION DURING OR AFTER DENTAL APPOINTMENT, VAGINAL/RECTAL EXAMINATION, SURGICAL PROCEDURE, OR ANY OTHER EXPOSURE?NO LATEX RISK : HAVE YOU EVER HAD ANY DIFFICULTY BREATHING OR HIVES AFTER EATING OR HANDLING ANY FRUITS, OR VEGETABLES; SUCH KIWI, BANANAS, STONE FRUITS, OR CHESTNUTSNO LATEX RISK : DO YOU HAVE A PREVIOUS PERSONAL HISTORY OF MORE THAN NINE SURGERIES, SPINA BIFIDA, OR REPEATED CATHERIZATIONS? NO LATEX RISK : ARE YOU FREQUENTLY EXPOSED TO LATEX PRODUCTS IN YOUR OCCUPATION?NO DATE ASKED : 09/08/2020 ALCOHOL USE: YES. ALCOHOL SCREENING DID YOU HAVE A DRINK CONTAINING ALCOHOL IN THE PAST YEAR?YES HOW OFTEN DID YOU HAVE SIX OR MORE DRINKS ON ONE OCCASION IN THE PAST YEAR?NEVER (0 POINTS) HOW MANY DRINKS DID YOU HAVE ON A TYPICAL DAY WHEN YOU WERE DRINKING IN THE PAST YEAR?1 OR 2 (0 POINTS) HOW OFTEN DID YOU HAVE A DRINK CONTAINING ALCOHOL IN THE PAST YEAR?TWO TO FOUR TIMES A MONTH (2 POINTS) POINTS2 INTERPRETATIONNEGATIVE RECREATIONAL DRUG USE: YES DRUG USE?YES MEDICAL MARIJUANA HOW OFTEN AND HOW MUCH? ABOUT EVERY OTHER DAY, HASN'T USED IN A WHILE, CAN'T AFFORD IT. CAFFEINE CAFFEINE USE?YES HOW OFTEN AND HOW MUCH? 3 PER DAY MANDAEISM [id number] ANGLICAN LANGUAGE LANGUAGES SPOKEN:PANAMANIAN EDUCATION LEVEL OF EDUCATION:NOT FINISHED COLLEGE GED LEARNING BARRIERS / SPECIAL NEEDS CHANGE FROM LAST VISIT?NO BARRIERS TO LEARNING?YES COMMENTS SHORT TERM MEMORY LOST HEARING IMPAIRED?YES STATES HEARING IS SOMEWHAT IMPAIRED, ESPECIALLY IF THERE IS A LOT OF BACKGROUND NOISE, IE AT A RESTAURANT VISION IMPAIRED?YES WEARS GLASSES :CORRECTIVE LENSES COGNITIVELY IMPAIRED?NO READINESS TO LEARN?YES LEARNING PREFERENCES?NO LEARNING CAPABILITIES PRESENT?YES EMOTIONAL BARRIERS?YES COMMENTS ANXIETY ,DEPRESSION , PTSD ,ADD SPECIAL DEVICES?YES : CPAP MANAGER SOURCING NEEDED?NO DOMESTIC VIOLENCE DO YOU FEEL SAFE IN YOUR ENVIRONMENT?YES 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 DIET: REGULAR. MARITAL STATUS: SINGLE. OTHERS AT HOME: LIVES WITH OTHERS, APARTMENT. PATIENT DESCRIBES PAIN :ACHING, HAVE IT ALL THE TIME, STABBING WAKES FROM SLEEP FROM 0-10, WHAT LEVEL IS YOUR PAIN TODAY?8 PRECIPITATING FACTORS WORSE WITH ACTIVITY ALLEVIATING FACTORS HYDROCODONE - HAS THE PATIENT BEEN EDUCATED REGARDING HIS/HER PLAN OF CARE?YES HAS THE PATIENT BEEN EDUCATED REGARDING PAIN, THE RISK FOR PAIN, THE IMPORTANCE OF EFFECTIVE PAIN MANAGEMENT, AND THE PAIN ASSESSMENT PROCESS?YES HOUSING: RENTS APARTMENT. ADVANCE DIRECTIVE ADVANCE DIRECTIVE DISCUSSED WITH PATIENT:YES PT DOES NOT HAVE ANY ADVANCED DIRECTIVES AND HE DECLINES INFORMATION ON HCP AT THIS TIME REVIEW OF SYSTEMS CONSTITUTIONAL: ANY RECENT FEVER NO . CHILLS NO . WEIGHT CHANGE OF UNKNOWN REASONS NO . GASTROENTEROLOGY: NEW UNEXPLAINABLE CHANGES IN BOWEL CONTROL CHRONIC DIARRHEA AND CONSTIPATION. HAD COLONOSCOPY YESTERDAY WITH REMOVAL OF POLYP AND BIOPSY OF INFLAMMATION IN ESOPHAGUS. . CONSTIPATION NO . GENITOURINARY: ANY NEW CHANGE IN BLADDER CONTROL? NO . NEUROLOGY: NEW ONSET DIZZINESS OR NEUROLOGICAL CHANGES NOT MENTIONED NO . NEW NUMBNESS OR PAIN PATTERNS NOT MENTIONED AND PERTINENT TO TODAY'S VISIT NO . CARDIOLOGY: NEW CHEST PRESSURE NO . PATIENT DENIES NO . RESPIRATORY: UNEXPLAINABLE COUGH NO . NEW SHORTNESS OF BREATH NO . VITAL SIGNS WT 338.0 LBS, HT 68 IN, BMI 51.39 INDEX, BP 144/88 MM HG, HR 121 /MIN, RR 20 /MIN, TEMP 97.4 F, OXYGEN SAT % 96%, SAFE IN ENV? (Y/N) YES, NA INITIALS SC 10:09T.SHOBHA GIBSON. EXAMINATION GENERAL EXAMINATION: GENERAL AWAKE,ALERT ,PLEASANT . PSYCH AFFECT NORMAL . LUNGS: LUNG DE [place] GARZA ARE CLEAR TO AUSCULTATION BILATERALLY. GOOD MOVEMENT OF AIR . HEART: S1, S2 IN A REGULAR RATE AND RHYTHM. NO SIGNIFICANT MURMURS, RUBS OR GALLOPS NOTED . LUMBAR:PALPATION: + FOR PAIN OVER L/S SPINE. + FOR PAIN OVER L/S PARASPINALS SLE: POSITIVE OVER LEFT LEG AT 45 DEGREES. POSITIVE PAIN WITH FACET LOADING LS SPINE.. DIAGNOSTIC TESTS REVIEWED MRI L/S SPINE-05/2018. ASSESSMENTS OTHER CHRONIC PAIN - G89.29 (PRIMARY) LUMBAR SPONDYLOSIS - M47.816 TREATMENT OTHER CHRONIC PAIN PAIN PROCEDURE LOGDATE OF PROCEDURE1PROCEDURE:LUMBAR EPIDURAL STEROID INJECTIONAMOUNT OF PRE SEDATEVALIUM 10MG, OXYCODONE 10MGRESULT:NO IMPROVEMENT NOTES: TODAY WE DISCUSSED TRANSFORAMINAL EPIDURAL STEROID ACTION AND LUMBAR THERAPEUTIC FACET BLOCK. I THINK HE WOULD BE A GOOD CANDIDATE TO TRY LUMBAR THERAPEUTIC FACET BLOCK AND CONSIDERING HIS RESPONSE POSSIBLY RADIOFREQUENCY IN THE FUTURE. HE HAS HAD EPISODES RECENTLY IN THE PAST 2 WEEKS OF KIDNEY STONES/RECURRENT. HE IS NOT MEDICALLY STABLE TO SCHEDULE INJECTIONS AT THIS TIME. I HAVE REFERRED HIM TO RHEUMATOLOGY. FOLLOW-UP SCHEDULED IN 6 TO 8 WEEKS. HE WILL BE SEEING NEUROLOGY IN THE NEXT FEW WEEKS DUE TO FREQUENT FALLING. WE WILL FOLLOW UP ON THIS WELL. [facility] REASON:CHRONIC GENERALIZED PAIN SYNDROME/SIGNIFICANT LUMBAR MRI PATHOLOGY INDICATIVE OF SEVERE ARTHROPATHY/SYMPTOMS OF INFLAMMATORY BOWEL. PLEASE EVALUATE AND TREAT. PROCEDURE CODES FA211 ESTABILISHED PATIENT [facility] CHARGE DISPOSITION & COMMUNICATION FOLLOW UP 6 TO 8 WEEKS (REASON: FOLLOW-UP ON NEUROLOGY EVALUATION ORDERED BY PRIMARY CARE. FOLLOW-UP ON RHEUMATOLOGY REFERRAL I ORDERED. FOLLOW-UP ON MEDICAL STABILITY IN REGARDS TO KIDNEY STONES. CONSIDER LUMBAR FACET BLOCK THERAPEUTIC.) ELECTRONICALLY SIGNED BY FREDERICK EVANS ON 09/08/2020 AT 12:46 PM EDT DISCLAIMER : THIS IS A VISIT SUMMARY EXTRACTED FROM THE [employer] CHART. IT IS NOT A COPY OF THE [employer] PROGRESS NOTE. WAQAS
== END ==
LOC: M PAIN 10:00
PROVIDERS: ATTEND Nurse Practitioner Family
DX: M47.816 Spondylosis without myelopathy or radiculopathy, lumbar region (principal); G89.29 Other chronic pain; R73.03 Prediabetes; G47.33 Obstructive sleep apnea (adult) (pediatric); G43.909 Migraine, unspecified, not intractable, without status migrainosus; M79.7 Fibromyalgia; K21.9 Gastro-esophageal reflux disease without esophagitis; Z86.59 Personal history of other mental and behavioral disorders; Z87.891 Personal history of nicotine dependence; Z88.8 Allergy status to other drugs, medicaments and biological substances; Z91.030 Bee allergy status; E66.01 Morbid (severe) obesity due to excess calories; Z68.43 Body mass index [BMI] 50.0-59.9, adult; Z79.82 Long term (current) use of aspirin; Z79.891 Long term (current) use of opiate analgesic; Z79.899 Other long term (current) drug therapy

== ENCOUNTER → 2020-09-16 | Outpatient (CLI) | payer BC ==
--- NOTE | 2020-09-16 14:42 | REP ---
INDICATION: COUGH,SOB,FEVER COMPARISON: 02/12/2018. TECHNIQUE: PA/Lateral FINDINGS: Lungs: Clear, no infiltrate. Heart: Normal in size. Mediastinum: Mediastinal silhouette unremarkable. Pleural angles: Unremarkable.. Bones and soft tissues: There are mild degenerative changes of the spine. IMPRESSION: No acute pulmonary disease. <Electronically signed by Min Arteaga > 09/16/20 [id number]
== END ==
LOC: M WUC 14:04
PROVIDERS: ATTEND Physician Assistant
DX: J20.9 Acute bronchitis, unspecified (principal)

== ENCOUNTER → 2020-10-12 | Outpatient (CLI) | payer BC | LOC: M WUC 08:31 | PROVIDERS: ATTEND Psychiatry & Neurology Neurology | DX: G35 Multiple sclerosis (principal) ==

== ENCOUNTER → 2020-10-21 | Outpatient (CLI) | payer BC ==
[2020-10-21 20:32] LABS: BLOOD UREA NITROGEN 15 MG/DL (7-18); GLOMERULAR FILTRATION RATE > 60.0 (>60)
== END ==
LOC: M WUC 15:16
PROVIDERS: ATTEND Psychiatry & Neurology Neurology
DX: N18.9 Chronic kidney disease, unspecified (principal)

== ENCOUNTER → 2020-12-11 | Outpatient (CLI) | payer BC ==
--- NOTE | 2020-12-13 14:28 | SLEEPCENT ---
DATE: 12/11/2020 ORDERED BY: Flora Veras RN, ANP Nocturnal polysomnography was performed for the titration of pressure therapy in this patient with a clinical diagnosis of obstructive sleep apnea syndrome confirmed by home testing revealing a respiratory event index of 5.2 with desaturations of 78%. For testing, the patient was fit with a [employer] Vitera full face mask of medium size, 4 cm of water pressure were applied to the circuit and the lights were extinguished. Eight hours and 8 minutes of data were reviewed. There were 438.5 minutes of sleep identified. Sleep latency was short at 3 minutes. REM sleep was delayed at 317 minutes. Sleep architecture improved late in the study and there were two REM cycles noted, overall sleep efficiency 91.7%. The electrocardiogram showed a sinus rhythm with an average heart rate of 80 beats per minute. EEG showed normal waveforms for wake and sleep. Respiratory events were best palliated with CPAP of a pressure at +8 with some minor limb activity and snoring noted early in the study. IMPRESSIONS: 1. Obstructive sleep apnea syndrome (G47.33). RECOMMENDATION: Nightly use of pressure therapy 8 cm of water. cc: Mustapha De Luna PA-C
== END ==
LOC: M SLEEP 20:00
PROVIDERS: ATTEND Nurse Practitioner Adult Health
DX: G47.33 Obstructive sleep apnea (adult) (pediatric) (principal)

== ENCOUNTER → 2020-12-15 | Outpatient (CLI) | payer BC | LOC: M PAIN 10:15 | PROVIDERS: ATTEND Anesthesiology | DX: M48.061 Spinal stenosis, lumbar region without neurogenic claudication (principal); M51.16 Intervertebral disc disorders with radiculopathy, lumbar region; G47.33 Obstructive sleep apnea (adult) (pediatric); F41.9 Anxiety disorder, unspecified; F32.9 Major depressive disorder, single episode, unspecified; G47.00 Insomnia, unspecified; F43.10 Post-traumatic stress disorder, unspecified; I10 Essential (primary) hypertension; E78.5 Hyperlipidemia, unspecified; G43.909 Migraine, unspecified, not intractable, without status migrainosus; M79.7 Fibromyalgia; M06.9 Rheumatoid arthritis, unspecified; K21.9 Gastro-esophageal reflux disease without esophagitis; Z87.891 Personal history of nicotine dependence; Z79.899 Other long term (current) drug therapy; Z91.030 Bee allergy status; J30.1 Allergic rhinitis due to pollen; Z88.8 Allergy status to other drugs, medicaments and biological substances ==

== ENCOUNTER → 2021-01-09 | Outpatient (REF) | payer BC ==
[2021-01-09 18:03] LABS: BASO # 0.1 10^3/uL (0.0-0.2); BASO % 0.8 % (0.0-1.0); EOS # 0.1 10^3/uL (0.0-0.5); EOS % 0.9 % (0.0-3.0); HEMATOCRIT 49.3 % (42.0-52.0); HEMOGLOBIN 16.2 g/dl (13.5-17.5); LYMPH # 2.1 10^3/uL (1.5-5.0); LYMPH % 28.2 % (24.0-44.0); MEAN CORPUSCULAR HEMOGLOBIN 30.2 pg (27.0-33.0); MEAN CORPUSCULAR HGB CONC 32.9 g/dl (32.0-36.5); MONO # 0.6 10^3/uL (0.0-0.8); NEUTROPHILS # 4.6 10^3/uL (1.5-8.5); NEUTROPHILS % 61.8 % (36.0-66.0); PLATELET COUNT, AUTOMATED 245 10^3/uL (150-450); RED BLOOD COUNT 5.36 10^6/uL (4.30-6.10); WHITE BLOOD COUNT 7.5 10^3/uL (4.0-10.0)
[2021-01-09 18:15] LABS: APPEARANCE, URINE CLEAR (CLEAR); BACTERIA, URINE AUTO NEGATIVE (NEGATIVE); BILIRUBIN, URINE AUTO NEGATIVE (NEGATIVE); BLOOD, URINE BLOOD NEGATIVE (NEGATIVE); CALCIUM OXALATE CRYSTALS SMALL; COLOR, URINE YELLOW (YELLOW); GLUCOSE, URINE (UA) AUTO NEGATIVE (NEGATIVE); KETONE, URINE AUTO NEGATIVE (NEGATIVE); LEUKOCYTE ESTERASE, URINE AUTO NEGATIVE (NEGATIVE); MUCUS, URINE SMALL (NEGATIVE); NITRITE, URINE AUTO NEGATIVE (NEGATIVE); PROTEIN, URINE AUTO NEGATIVE (NEGATIVE); RBC, URINE AUTO 0 /HPF (0-3); SPECIFIC GRAVITY URINE AUTO 1.025 (1.002-1.035); SQUAMOUS EPITHELIAL CELL UR AU 0 /HPF (0-6); UROBILINOGEN, URINE AUTO 0.2 mg/dL (0.0-2.0); WBC, URINE AUTO 0 /HPF (0-3)
[2021-01-09 18:27] LABS: C REACTIVE PROTEIN QUANTITATIV 0.33 MG/DL (0.00-0.30)
[2021-01-09 18:32] LABS: TOTAL PROTEIN,RANDOM URINE 13.7 MG/DL (0.0-12.0)
[2021-01-09 18:55] LABS: ERYTHROCYTE SEDIMENTATION RATE 25 mm/hr (0-15)
== END ==
LOC: M SFHCRHEU 14:18
PROVIDERS: ATTEND Internal Medicine
DX: R76.8 Other specified abnormal immunological findings in serum (principal); M25.40 Effusion, unspecified joint

== ENCOUNTER → 2021-01-16 | Outpatient (CLI) | payer BC ==
--- NOTE | 2021-01-16 09:31 | REP ---
INDICATION: JOINT EFFUSION COMPARISON: None. TECHNIQUE: AP, lateral, bilateral oblique views right and left hand. FINDINGS: The left hand is age-appropriate and essentially normal. No overt arthritic changes are appreciated. No evidence for acute or healed injury. The right hand demonstrates mild arthritic changes primarily noted at the 3rd D IP joint with subchondral sclerosis, joint space narrowing, and marginal spurring/early osteophyte formation best identified on lateral radiograph. More subtle degenerative changes involving the 1st through 5th interphalangeal joints and 1st metacarpophalangeal joint demonstrate mild subchondral sclerosis and subtle joint space narrowing. There is no evidence for acute or healed injury. IMPRESSION: Relatively mild early degenerative changes primarily involving the right hand and specifically the 3rd D IP joint.. Left hand appears essentially age-appropriate and normal. <Electronically signed by Jorge Guerrero > 01/16/21 0992
--- NOTE | 2021-01-16 09:33 | REP ---
INDICATION: JOINT EFFUSION COMPARISON: None. TECHNIQUE: AP, lateral, bilateral oblique views right and left wrist. FINDINGS: The right wrist is age-appropriate and normal. Minimal increased sclerosis and very subtle joint space narrowing at the radiocarpal joint line is suggested. No evidence for acute or healed injury. The left wrist demonstrates prior ulnar styloid and likely distal radial metaphyseal healed fractures. There is mild increased sclerosis and minimal joint space narrowing involving the radiocarpal joint line. The remainder of the exam appears age-appropriate, symmetric and normal. IMPRESSION: Minimal symmetric changes at the bilateral radiocarpal joint lines. Findings to suggest old healed left wrist injury. <Electronically signed by Jorge Guerrero > 01/16/21 [id number]
== END ==
LOC: M WUC 08:19
PROVIDERS: ATTEND Internal Medicine
DX: M25.40 Effusion, unspecified joint (principal)

== ENCOUNTER → 2021-06-19 | Outpatient (CLI) | payer BC ==
[~2021-06-19] MED LIST changes: -D31000TA2 PO; +OMEP-173; -OMEP-218; +VITA100093 PO
[2021-06-19 10:29] LABS: BASO # 0.1 10^3/uL (0.0-0.2); BASO % 0.9 % (0.0-1.0); EOS # 0.1 10^3/uL (0.0-0.5); EOS % 1.5 % (0.0-3.0); HEMATOCRIT 48.8 % (42.0-52.0); HEMOGLOBIN 15.9 g/dl (13.5-17.5); LYMPH # 2.1 10^3/uL (1.5-5.0); LYMPH % 26.5 % (24.0-44.0); MEAN CORPUSCULAR HEMOGLOBIN 30.8 pg (27.0-33.0); MEAN CORPUSCULAR HGB CONC 32.6 g/dl (32.0-36.5); MEAN CORPUSCULAR VOLUME 94.6 fl (80.0-96.0); MONO # 0.6 10^3/uL (0.0-0.8); MONO % 7.7 % (2.0-8.0); PLATELET COUNT, AUTOMATED 218 10^3/uL (150-450); RED BLOOD COUNT 5.16 10^6/uL (4.30-6.10); WHITE BLOOD COUNT 7.9 10^3/uL (4.0-10.0)
[2021-06-19 10:50] LABS: ERYTHROCYTE SEDIMENTATION RATE 12 mm/hr (0-15)
[2021-06-19 10:53] LABS: ALBUMIN 3.5 GM/DL (3.2-5.2); ALT/SGPT 56 U/L (12-78); BILIRUBIN,TOTAL 0.3 MG/DL (0.2-1.0); BLOOD UREA NITROGEN 16 MG/DL (7-18); C REACTIVE PROTEIN QUANTITATIV 0.41 MG/DL (0.00-0.30); CALCIUM LEVEL 8.7 MG/DL (8.5-10.1); CARBON DIOXIDE LEVEL 24 MEQ/L (21-32); CHLORIDE LEVEL 108 MEQ/L (98-107); CHOLESTEROL LEVEL 205 MG/DL (<200); CHOLESTEROL RISK RATIO 8.541 (<5); CREATININE FOR GFR 0.82 MG/DL (0.70-1.30); GLOMERULAR FILTRATION RATE > 60.0 (>60); GLUCOSE, FASTING 159 MG/DL (70-100); HDL CHOLESTEROL 24 MG/DL (>40); NON-HDL-C 181 MG/DL; POTASSIUM SERUM 3.8 MEQ/L (3.5-5.1); SODIUM LEVEL 141 MEQ/L (136-145); TOTAL PROTEIN 6.9 GM/DL (6.4-8.2); TRIGLYCERIDES LEVEL 701 MG/DL (<150); URIC ACID 6.9 MG/DL (3.5-7.2)
[2021-06-19 10:56] LABS: HEMOGLOBIN A1c 5.6 %
[2021-06-19 11:01] LABS: FOLATE 10.7 NG/ML
[2021-06-20 18:11] LABS: VITAMIN B12 LEVEL 380 PG/ML
== END ==
LOC: M WUC 08:12
PROVIDERS: ATTEND Physician Assistant
DX: M25.512 Pain in left shoulder (principal); I10 Essential (primary) hypertension; M79.673 Pain in unspecified foot

== ENCOUNTER → 2021-07-12 | Outpatient (CLI) | payer BC ==
[2021-07-12 11:02] LABS: ALBUMIN 3.7 GM/DL (3.2-5.2); ALT/SGPT 58 U/L (12-78); BILIRUBIN,TOTAL 0.5 MG/DL (0.2-1.0); BLOOD UREA NITROGEN 16 MG/DL (7-18); CALCIUM LEVEL 8.5 MG/DL (8.5-10.1); CARBON DIOXIDE LEVEL 30 MEQ/L (21-32); CHLORIDE LEVEL 105 MEQ/L (98-107); CHOLESTEROL LEVEL 165 MG/DL (<200); CREATININE FOR GFR 0.92 MG/DL (0.70-1.30); GLOMERULAR FILTRATION RATE > 60.0 (>60); GLUCOSE, FASTING 113 MG/DL (70-100); HDL CHOLESTEROL 39 MG/DL (>40); LDL CHOLESTEROL 85 MG/DL (<100); NON-HDL-C 126 MG/DL; POTASSIUM SERUM 3.5 MEQ/L (3.5-5.1); SODIUM LEVEL 140 MEQ/L (136-145); TOTAL PROTEIN 6.9 GM/DL (6.4-8.2); TRIGLYCERIDES LEVEL 203 MG/DL (<150)
== END ==
LOC: M WUC 08:10
PROVIDERS: ATTEND Physician Assistant
DX: E78.2 Mixed hyperlipidemia (principal)

== ENCOUNTER → 2021-08-25 | Outpatient (CLI) | payer BC | LOC: M TMPAIN 14:00 → M PAIN 14:00 | PROVIDERS: ATTEND Anesthesiology | DX: M51.16 Intervertebral disc disorders with radiculopathy, lumbar region (principal); G47.33 Obstructive sleep apnea (adult) (pediatric); F41.9 Anxiety disorder, unspecified; F32.A Depression, unspecified; G47.00 Insomnia, unspecified; F43.10 Post-traumatic stress disorder, unspecified; F90.9 Attention-deficit hyperactivity disorder, unspecified type; I10 Essential (primary) hypertension; E78.5 Hyperlipidemia, unspecified; G43.909 Migraine, unspecified, not intractable, without status migrainosus; M79.7 Fibromyalgia; M06.9 Rheumatoid arthritis, unspecified; K21.9 Gastro-esophageal reflux disease without esophagitis; J30.1 Allergic rhinitis due to pollen; I73.00 Raynaud's syndrome without gangrene; Z87.891 Personal history of nicotine dependence; Z79.82 Long term (current) use of aspirin; Z79.891 Long term (current) use of opiate analgesic; Z79.899 Other long term (current) drug therapy; Z88.8 Allergy status to other drugs, medicaments and biological substances; Z91.030 Bee allergy status ==

== ENCOUNTER → 2021-10-04 | Outpatient (CLI) | payer BC ==
[2021-10-05 23:08] LABS: HERPES ZOSTER, VARICELLA IgG 170 index (Immune >165); HERPES ZOSTER, VARICELLA IgM <0.91 index (0.00-0.90); MUMPS VIRUS IgG ANTIBODY 12.1 AU/mL (Immune >10.9)
== END ==
LOC: M WUC 09:14
PROVIDERS: ATTEND Physician Assistant
DX: Z01.84 Encounter for antibody response examination (principal)

== ENCOUNTER → 2021-10-11 | Outpatient (CLI) | payer BC | LOC: M PLALAB 14:19 | PROVIDERS: ATTEND Physician Assistant | DX: Z01.84 Encounter for antibody response examination (principal) ==

== ENCOUNTER → 2021-10-18 | Outpatient (CLI) | payer BC | LOC: M PAIN 10:15 | PROVIDERS: ATTEND Anesthesiology | DX: M54.6 Pain in thoracic spine (principal); M79.10 Myalgia, unspecified site; M79.18 Myalgia, other site; G47.33 Obstructive sleep apnea (adult) (pediatric); F41.9 Anxiety disorder, unspecified; F32.A Depression, unspecified; G47.00 Insomnia, unspecified; F43.10 Post-traumatic stress disorder, unspecified; F90.9 Attention-deficit hyperactivity disorder, unspecified type; I10 Essential (primary) hypertension; E78.5 Hyperlipidemia, unspecified; M35.9 Systemic involvement of connective tissue, unspecified; G43.909 Migraine, unspecified, not intractable, without status migrainosus; M79.7 Fibromyalgia; M06.9 Rheumatoid arthritis, unspecified; K21.9 Gastro-esophageal reflux disease without esophagitis; M54.50 Low back pain, unspecified; I73.00 Raynaud's syndrome without gangrene; J30.1 Allergic rhinitis due to pollen; M19.90 Unspecified osteoarthritis, unspecified site; Z87.891 Personal history of nicotine dependence; Z79.82 Long term (current) use of aspirin; Z87.442 Personal history of urinary calculi; Z79.891 Long term (current) use of opiate analgesic; Z79.899 Other long term (current) drug therapy; Z91.030 Bee allergy status; Z88.8 Allergy status to other drugs, medicaments and biological substances ==

== ENCOUNTER → 2021-10-23 | Outpatient (CLI) | payer BC | LOC: M LABSMTC 11:30 | PROVIDERS: ATTEND Anesthesiology | DX: Z01.818 Encounter for other preprocedural examination (principal); Z11.52 Encounter for screening for COVID-19 ==

== ENCOUNTER → 2021-10-24 | Outpatient (CLI) | payer BC ==
[2021-10-24 11:00] VITALS: BP 134/3
== END ==
LOC: M SDC 09:05
PROVIDERS: ATTEND Anesthesiology
DX: M51.16 Intervertebral disc disorders with radiculopathy, lumbar region (principal); M51.26 Other intervertebral disc displacement, lumbar region; M51.27 Other intervertebral disc displacement, lumbosacral region

== ENCOUNTER → 2021-11-22 | Outpatient (CLI) | payer BC | LOC: M PAIN 09:00 | PROVIDERS: ATTEND Anesthesiology | DX: M51.16 Intervertebral disc disorders with radiculopathy, lumbar region (principal); M54.2 Cervicalgia; M79.10 Myalgia, unspecified site; G89.29 Other chronic pain; R73.03 Prediabetes; G47.33 Obstructive sleep apnea (adult) (pediatric); I10 Essential (primary) hypertension; G43.909 Migraine, unspecified, not intractable, without status migrainosus; K21.9 Gastro-esophageal reflux disease without esophagitis; Z86.59 Personal history of other mental and behavioral disorders; Z87.891 Personal history of nicotine dependence; Z88.8 Allergy status to other drugs, medicaments and biological substances; Z91.030 Bee allergy status; E66.01 Morbid (severe) obesity due to excess calories; Z68.42 Body mass index [BMI] 45.0-49.9, adult; Z79.82 Long term (current) use of aspirin; Z79.891 Long term (current) use of opiate analgesic; Z79.899 Other long term (current) drug therapy ==

== ENCOUNTER → 2022-01-08 | Outpatient (CLI) | payer BC | LOC: M LABSMTC 11:48 | PROVIDERS: ATTEND Anesthesiology | DX: Z01.812 Encounter for preprocedural laboratory examination (principal); Z11.52 Encounter for screening for COVID-19 ==

== ENCOUNTER → 2022-03-04 | Outpatient (CLI) | payer BC | LOC: M LABSMTC 09:30 | PROVIDERS: ATTEND Anesthesiology | DX: Z11.52 Encounter for screening for COVID-19 (principal) ==

== ENCOUNTER → 2022-03-05 | Outpatient (CLI) | payer BC ==
[~2022-03-05] MED LIST changes: +BUPIVACAINE HCL 0.25% 30ML VIAL As Ordered ONE; +ISOVUE-M 300 61% 15ML VIAL As Ordered ONE; +LIDOCAINE 1% SDV 30ML VIAL As Ordered ONE
== END ==
LOC: M PAIN 08:15
PROVIDERS: ATTEND Anesthesiology
DX: M51.16 Intervertebral disc disorders with radiculopathy, lumbar region (principal); G47.33 Obstructive sleep apnea (adult) (pediatric); F41.9 Anxiety disorder, unspecified; F32.A Depression, unspecified; G47.00 Insomnia, unspecified; F43.10 Post-traumatic stress disorder, unspecified; I10 Essential (primary) hypertension; E78.5 Hyperlipidemia, unspecified; G43.909 Migraine, unspecified, not intractable, without status migrainosus; M79.7 Fibromyalgia; M06.9 Rheumatoid arthritis, unspecified; J30.1 Allergic rhinitis due to pollen; K21.9 Gastro-esophageal reflux disease without esophagitis; M54.50 Low back pain, unspecified; M35.00 Sjogren syndrome, unspecified; Z87.891 Personal history of nicotine dependence; Z79.82 Long term (current) use of aspirin; Z79.891 Long term (current) use of opiate analgesic; Z79.899 Other long term (current) drug therapy; Z91.030 Bee allergy status; Z88.8 Allergy status to other drugs, medicaments and biological substances
CPT/HCPCS: 64483; J1100

== ENCOUNTER → 2022-03-22 | Outpatient (CLI) | payer BC ==
[~2022-03-22] MED LIST changes: -BUPIVACAINE HCL 0.25% 30ML VIAL As Ordered ONE; -ISOVUE-M 300 61% 15ML VIAL As Ordered ONE; -LIDOCAINE 1% SDV 30ML VIAL As Ordered ONE
== END ==
LOC: M LABSMTC 09:10
PROVIDERS: ATTEND Anesthesiology
DX: Z11.52 Encounter for screening for COVID-19 (principal)

== ENCOUNTER 2022-03-24 13:13 | Emergency (ER) | payer BC ==
[~2022-03-24] VITALS: Ht 195.6 cm; Wt 140.0 kg
[2022-03-24] MEDS ORDERED: MIRA3350 PO (13:35)
[2022-03-24] MEDS ORDERED: DOCU100C16 PO (13:35)
[2022-03-24] MEDS ORDERED: BENA25TA5 (13:35)
[2022-03-24] MEDS ORDERED: DOXY100T (13:35)
[2022-03-24] MEDS ORDERED: ALBU8.5H (13:35)
[2022-03-24] MEDS ORDERED: GLYC1TAB18 (13:35)
[2022-03-24] MEDS ORDERED: IMIP50TA3 (13:35)
[2022-03-24] MEDS ORDERED: DOXY100C3 (13:35)
[2022-03-24] MEDS ORDERED: CLIN1GEL19 (13:35)
[2022-03-24] MEDS ORDERED: ZOLP10TA2 (13:35)
[2022-03-24] MEDS ORDERED: TAMS1CAP17 (13:35)
[2022-03-24 14:55] LABS: BASO # 0.1 10^3/uL (0.0-0.2); BASO % 0.7 % (0.0-1.0); EOS # 0.1 10^3/uL (0.0-0.5); EOS % 1.1 % (0.0-3.0); HEMATOCRIT 47.8 % (42.0-52.0); HEMOGLOBIN 15.3 g/dl (13.5-17.5); LYMPH # 2.1 10^3/uL (1.5-5.0); LYMPH % 22.7 % (24.0-44.0); MEAN CORPUSCULAR HEMOGLOBIN 30.4 pg (27.0-33.0); MONO # 0.8 10^3/uL (0.0-0.8); MONO % 8.1 % (2.0-8.0); NEUTROPHILS # 6.3 10^3/uL (1.5-8.5); NEUTROPHILS % 67.2 % (36.0-66.0); PLATELET COUNT, AUTOMATED 249 10^3/uL (150-450); RED BLOOD COUNT 5.03 10^6/uL (4.30-6.10); WHITE BLOOD COUNT 9.4 10^3/uL (4.0-10.0)
[2022-03-24 15:16] LABS: LIPASE 30 U/L (12-53)
[2022-03-24 15:18] LABS: ALBUMIN 3.9 G/DL (3.2-5.2); ALKALINE PHOSPHATASE 93 U/L (46-116); ALT/SGPT 45 U/L (7.0-40); AST/SGOT 26 U/L (<34); BILIRUBIN,DIRECT < 0.1 MG/DL (<0.4); BILIRUBIN,TOTAL 0.2 MG/DL (0.3-1.2); TOTAL PROTEIN 7.2 G/DL (5.7-8.2)
[2022-03-24 16:12] VITALS: BP 121/63
== END 2022-03-24 16:14 | disposition home or self-care (01) ==
LOC: M ED 13:13
DX: K60.2 Anal fissure, unspecified (principal); K62.5 Hemorrhage of anus and rectum; I10 Essential (primary) hypertension; E78.5 Hyperlipidemia, unspecified; J45.909 Unspecified asthma, uncomplicated; G47.33 Obstructive sleep apnea (adult) (pediatric); F43.10 Post-traumatic stress disorder, unspecified; F32.A Depression, unspecified; Z91.040 Latex allergy status; Z79.51 Long term (current) use of inhaled steroids; Z79.82 Long term (current) use of aspirin; Z79.899 Other long term (current) drug therapy

== ENCOUNTER → 2022-03-26 | Outpatient (CLI) | payer BC ==
[~2022-03-26] MED LIST changes: +ALBU8.5H; +BENA25TA5; +BUPIVACAINE HCL 0.25% 10ML VIAL As Ordered ONE; +BUPIVACAINE HCL 0.25% 30ML VIAL As Ordered ONE; +CLIN1GEL19; +DOCU100C16 PO; +DOXY100C3; +DOXY100T; +GLYC1TAB18; +IMIP50TA3; +MIRA3350 PO; +TAMS1CAP17; +TRIAMCINOLONE ACETONIDE SUSP 40MG/ML 1ML VIAL As Ordered ONE; +ZOLP10TA2
== END ==
LOC: M PAIN 10:30
PROVIDERS: ATTEND Anesthesiology
DX: M79.12 Myalgia of auxiliary muscles, head and neck (principal); G47.33 Obstructive sleep apnea (adult) (pediatric); F41.9 Anxiety disorder, unspecified; F32.A Depression, unspecified; G47.00 Insomnia, unspecified; F43.10 Post-traumatic stress disorder, unspecified; I10 Essential (primary) hypertension; J30.1 Allergic rhinitis due to pollen; E78.5 Hyperlipidemia, unspecified; G43.909 Migraine, unspecified, not intractable, without status migrainosus; M79.7 Fibromyalgia; M06.9 Rheumatoid arthritis, unspecified; K21.9 Gastro-esophageal reflux disease without esophagitis; M54.50 Low back pain, unspecified; I73.00 Raynaud's syndrome without gangrene; M35.9 Systemic involvement of connective tissue, unspecified; Z87.891 Personal history of nicotine dependence; Z79.82 Long term (current) use of aspirin; Z79.891 Long term (current) use of opiate analgesic; Z79.899 Other long term (current) drug therapy; Z88.8 Allergy status to other drugs, medicaments and biological substances; Z91.030 Bee allergy status

== ENCOUNTER → 2022-03-27 | Outpatient (CLI) | payer BC ==
[~2022-03-27] MED LIST changes: -BUPIVACAINE HCL 0.25% 10ML VIAL As Ordered ONE; -BUPIVACAINE HCL 0.25% 30ML VIAL As Ordered ONE; +GASTROGRAFIN SOLUTION 30ML As Ordered ONE; +ISOVUE-370 76% 100ML VIAL As Ordered ONE; -TRIAMCINOLONE ACETONIDE SUSP 40MG/ML 1ML VIAL As Ordered ONE
== END ==
LOC: M RAD 13:25
PROVIDERS: ATTEND Physician Assistant
DX: K60.2 Anal fissure, unspecified (principal)

== ENCOUNTER → 2022-04-24 | Outpatient (CLI) | payer BC ==
[~2022-04-24] MED LIST changes: -GASTROGRAFIN SOLUTION 30ML As Ordered ONE; -ISOVUE-370 76% 100ML VIAL As Ordered ONE
== END ==
LOC: M PLALAB 14:11
PROVIDERS: ATTEND Internal Medicine
DX: Z79.899 Other long term (current) drug therapy (principal)

== ENCOUNTER → 2022-05-01 | Outpatient (CLI) | payer BC | LOC: M SOG 07:54 | PROVIDERS: ATTEND Orthopaedic Surgery | DX: M54.50 Low back pain, unspecified (principal) ==

== ENCOUNTER → 2022-05-01 | Outpatient (CLI) | payer BC ==
[2022-05-01 18:21] LABS: BASO # 0.1 10^3/uL (0.0-0.2); BASO % 0.7 % (0.0-1.0); EOS # 0.1 10^3/uL (0.0-0.5); EOS % 0.9 % (0.0-3.0); HEMATOCRIT 45.1 % (42.0-52.0); HEMOGLOBIN 14.4 g/dl (13.5-17.5); LYMPH % 26.9 % (24.0-44.0); MEAN CORPUSCULAR HEMOGLOBIN 30.3 pg (27.0-33.0); MEAN CORPUSCULAR HGB CONC 31.9 g/dl (32.0-36.5); MEAN CORPUSCULAR VOLUME 94.7 fl (80.0-96.0); MONO # 0.6 10^3/uL (0.0-0.8); MONO % 7.4 % (2.0-8.0); NEUTROPHILS # 4.8 10^3/uL (1.5-8.5); NEUTROPHILS % 63.8 % (36.0-66.0); PLATELET COUNT, AUTOMATED 228 10^3/uL (150-450); RED BLOOD COUNT 4.76 10^6/uL (4.30-6.10); WHITE BLOOD COUNT 7.6 10^3/uL (4.0-10.0)
[2022-05-01 18:27] LABS: ALBUMIN 4.1 G/DL (3.2-5.2); ALKALINE PHOSPHATASE 66 U/L (46-116); ALT/SGPT 43 U/L (7.0-40); AST/SGOT 21 U/L (<34); BILIRUBIN,TOTAL 0.5 MG/DL (0.3-1.2); BLOOD UREA NITROGEN 13 MG/DL (9-23); CALCIUM LEVEL 8.8 MG/DL (8.5-10.1); CARBON DIOXIDE LEVEL 30 MMOL/L (20-31); CHLORIDE LEVEL 104 MMOL/L (98-107); GLOMERULAR FILTRATION RATE > 60.0 (>60); GLUCOSE, FASTING 84 MG/DL (60-100); POTASSIUM SERUM 4.1 MMOL/L (3.5-5.1); SODIUM LEVEL 141 MMOL/L (136-145); TOTAL PROTEIN 7.1 G/DL (5.7-8.2)
[2022-05-01 18:47] LABS: ERYTHROCYTE SEDIMENTATION RATE 42 mm/hr (0-15)
[2022-05-02 14:05] LABS: APPEARANCE, URINE CLEAR (CLEAR); BACTERIA, URINE AUTO NEGATIVE (NEGATIVE); BILIRUBIN, URINE AUTO NEGATIVE (NEGATIVE); BLOOD, URINE BLOOD NEGATIVE (NEGATIVE); COLOR, URINE YELLOW (YELLOW); GLUCOSE, URINE (UA) AUTO NEGATIVE (NEGATIVE); KETONE, URINE AUTO TRACE mg/dL (NEGATIVE); LEUKOCYTE ESTERASE, URINE AUTO NEGATIVE (NEGATIVE); MUCUS, URINE SMALL (NEGATIVE); NITRITE, URINE AUTO NEGATIVE (NEGATIVE); PROTEIN, URINE AUTO NEGATIVE (NEGATIVE); RBC, URINE AUTO 2 /HPF (0-3); SPECIFIC GRAVITY URINE AUTO 1.013 (1.002-1.035); SQUAMOUS EPITHELIAL CELL UR AU 0 /HPF (0-6); UROBILINOGEN, URINE AUTO 0.2 mg/dL (0.0-2.0); WBC, URINE AUTO 0 /HPF (0-3)
== END ==
LOC: M PLALAB 15:45
PROVIDERS: ATTEND Family Medicine
DX: R41.82 Altered mental status, unspecified (principal)

== ENCOUNTER → 2022-05-02 | Outpatient (REF) | payer BC ==
[2022-05-02 14:05] LABS: APPEARANCE, URINE CLEAR (CLEAR); BACTERIA, URINE AUTO NEGATIVE (NEGATIVE); BILIRUBIN, URINE AUTO NEGATIVE (NEGATIVE); BLOOD, URINE BLOOD NEGATIVE (NEGATIVE); COLOR, URINE YELLOW (YELLOW); GLUCOSE, URINE (UA) AUTO NEGATIVE (NEGATIVE); KETONE, URINE AUTO TRACE mg/dL (NEGATIVE); LEUKOCYTE ESTERASE, URINE AUTO NEGATIVE (NEGATIVE); MUCUS, URINE SMALL (NEGATIVE); NITRITE, URINE AUTO NEGATIVE (NEGATIVE); PROTEIN, URINE AUTO NEGATIVE (NEGATIVE); RBC, URINE AUTO 2 /HPF (0-3); SPECIFIC GRAVITY URINE AUTO 1.013 (1.002-1.035); SQUAMOUS EPITHELIAL CELL UR AU 0 /HPF (0-6); UROBILINOGEN, URINE AUTO 0.2 mg/dL (0.0-2.0); WBC, URINE AUTO 0 /HPF (0-3)
== END ==
LOC: M LAB REF 11:47
PROVIDERS: ATTEND Physician Assistant
DX: R41.82 Altered mental status, unspecified (principal)

== ENCOUNTER → 2022-05-29 | Outpatient (CLI) | payer BC ==
[~2022-05-29] MED LIST changes: +FLUT50SP17; -FLUTISP
== END ==
LOC: M PAIN 09:45
PROVIDERS: ATTEND Nurse Practitioner Family
DX: M54.2 Cervicalgia (principal); G47.33 Obstructive sleep apnea (adult) (pediatric); F41.9 Anxiety disorder, unspecified; F32.A Depression, unspecified; G47.00 Insomnia, unspecified; F43.10 Post-traumatic stress disorder, unspecified; I10 Essential (primary) hypertension; E78.5 Hyperlipidemia, unspecified; G43.909 Migraine, unspecified, not intractable, without status migrainosus; M79.7 Fibromyalgia; G21.9 Secondary parkinsonism, unspecified; M35.00 Sjogren syndrome, unspecified; K76.0 Fatty (change of) liver, not elsewhere classified; Z87.891 Personal history of nicotine dependence; Z79.82 Long term (current) use of aspirin; Z79.891 Long term (current) use of opiate analgesic; Z79.899 Other long term (current) drug therapy; Z88.8 Allergy status to other drugs, medicaments and biological substances; Z91.030 Bee allergy status; J30.1 Allergic rhinitis due to pollen

== ENCOUNTER → 2022-06-21 | Outpatient (CLI) | payer BC ==
[~2022-06-21] MED LIST changes: +FLAX100020 PO; -[UNRECOGNIZED DRUG - CODE] PO
[2022-06-21 09:53] LABS: BASO # 0.1 10^3/uL (0.0-0.2); BASO % 0.7 % (0.0-1.0); EOS # 0.1 10^3/uL (0.0-0.5); EOS % 0.8 % (0.0-3.0); HEMOGLOBIN 16.1 g/dl (13.5-17.5); LYMPH # 1.4 10^3/uL (1.5-5.0); LYMPH % 18.1 % (24.0-44.0); MEAN CORPUSCULAR HEMOGLOBIN 30.1 pg (27.0-33.0); MEAN CORPUSCULAR HGB CONC 32.9 g/dl (32.0-36.5); MEAN CORPUSCULAR VOLUME 91.8 fl (80.0-96.0); MONO # 0.6 10^3/uL (0.0-0.8); MONO % 8.1 % (2.0-8.0); NEUTROPHILS # 5.5 10^3/uL (1.5-8.5); NEUTROPHILS % 71.9 % (36.0-66.0); PLATELET COUNT, AUTOMATED 226 10^3/uL (150-450); RED BLOOD COUNT 5.34 10^6/uL (4.30-6.10); WHITE BLOOD COUNT 7.7 10^3/uL (4.0-10.0)
[2022-06-21 10:31] LABS: PROSTATIC SPECIFIC AG MONITOR 0.42 NG/ML (< 4.00)
[2022-06-21 10:35] LABS: THYROID STIMULATING HORMONE 0.874 uIU/ML (0.55-4.78)
[2022-06-21 10:36] LABS: FREE T3 3.4 PG/ML (2.3-4.2); FREE T4 0.91 NG/DL (0.89-1.76)
[2022-06-21 10:37] LABS: ALKALINE PHOSPHATASE 92 U/L (46-116); ALT/SGPT 35 U/L (7.0-40); AST/SGOT 21 U/L (<34); BILIRUBIN,TOTAL 0.4 MG/DL (0.3-1.2); BLOOD UREA NITROGEN 17 MG/DL (9-23); CALCIUM LEVEL 9.4 MG/DL (8.5-10.1); CARBON DIOXIDE LEVEL 25 MMOL/L (20-31); CHLORIDE LEVEL 107 MMOL/L (98-107); CREATININE FOR GFR 0.97 MG/DL (0.70-1.30); GLOMERULAR FILTRATION RATE > 60.0 (>60); GLUCOSE, FASTING 99 MG/DL (60-100); POTASSIUM SERUM 4.1 MMOL/L (3.5-5.1); SODIUM LEVEL 141 MMOL/L (136-145); TOTAL PROTEIN 7.4 G/DL (5.7-8.2)
== END ==
LOC: M LAB 08:37
PROVIDERS: ATTEND Anesthesiology Pain Medicine
DX: K62.5 Hemorrhage of anus and rectum (principal)

== ENCOUNTER → 2022-07-03 | Outpatient (CLI) | payer BC ==
[2022-07-03 12:00] VITALS: BP 121/78
== END ==
LOC: M RAD 09:56
PROVIDERS: ATTEND Physician Assistant
DX: R41.82 Altered mental status, unspecified (principal)

== ENCOUNTER 2022-09-03 16:26 | Emergency (ER) | payer BC ==
[~2022-09-03] VITALS: Ht 195.6 cm; Wt 148.8 kg
[~2022-09-03 16:26] MED LIST changes: +CYAN-1 PO; -CYAN100050 PO
[2022-09-03 20:10] LABS: BASO # 0.1 10^3/uL (0.0-0.2); EOS # 0.3 10^3/uL (0.0-0.5); EOS % 2.9 % (0.0-3.0); HEMATOCRIT 47.3 % (42.0-52.0); HEMOGLOBIN 15.5 g/dl (13.5-17.5); LYMPH % 33.3 % (24.0-44.0); MEAN CORPUSCULAR HEMOGLOBIN 30.3 pg (27.0-33.0); MEAN CORPUSCULAR HGB CONC 32.8 g/dl (32.0-36.5); MEAN CORPUSCULAR VOLUME 92.6 fl (80.0-96.0); MONO # 0.7 10^3/uL (0.0-0.8); MONO % 7.9 % (2.0-8.0); NEUTROPHILS # 4.9 10^3/uL (1.5-8.5); NEUTROPHILS % 54.5 % (36.0-66.0); PLATELET COUNT, AUTOMATED 261 10^3/uL (150-450); RED BLOOD COUNT 5.11 10^6/uL (4.30-6.10)
[2022-09-03 20:37] LABS: CK-MB VALUE MASS 2.1 NG/ML (<3.6)
[2022-09-03 20:38] LABS: LIPASE 40 U/L (12-53)
[2022-09-03 20:40] LABS: THYROID STIMULATING HORMONE 0.707 uIU/ML (0.55-4.78)
[2022-09-03 20:41] LABS: FREE T4 0.99 NG/DL (0.89-1.76)
[2022-09-03 20:44] LABS: ALBUMIN 3.7 G/DL (3.2-5.2); ALKALINE PHOSPHATASE 97 U/L (46-116); ALT/SGPT 36 U/L (7.0-40); AST/SGOT < 8 U/L (<34); BILIRUBIN,DIRECT < 0.1 MG/DL (<0.4); BILIRUBIN,TOTAL 0.3 MG/DL (0.3-1.2); BLOOD UREA NITROGEN 12 MG/DL (9-23); CALCIUM LEVEL 8.3 MG/DL (8.5-10.1); CARBON DIOXIDE LEVEL 26 MMOL/L (20-31); CHLORIDE LEVEL 105 MMOL/L (98-107); CPK CREATINE PHOSPHOKINASE 146 U/L (46-171); CREATININE FOR GFR 0.53 MG/DL (0.70-1.30); GLOMERULAR FILTRATION RATE > 60.0 (>60); GLUCOSE, FASTING 108 MG/DL (60-100); MB/CK RELATIVE INDEX 1.43 (< OR =4); POTASSIUM SERUM 4.1 MMOL/L (3.5-5.1); SODIUM LEVEL 139 MMOL/L (136-145); TOTAL PROTEIN 6.8 G/DL (5.7-8.2)
[2022-09-03 21:38] VITALS: BP 143/90; TEMP 97.6; O2SAT 96
== END 2022-09-03 21:38 | disposition home or self-care (01) ==
LOC: M ED 16:26
DX: R07.89 Other chest pain (principal); F41.9 Anxiety disorder, unspecified; I10 Essential (primary) hypertension; E78.5 Hyperlipidemia, unspecified; J45.909 Unspecified asthma, uncomplicated; G47.33 Obstructive sleep apnea (adult) (pediatric); Z87.891 Personal history of nicotine dependence; Z91.040 Latex allergy status; Z79.899 Other long term (current) drug therapy; Z79.51 Long term (current) use of inhaled steroids

== ENCOUNTER → 2022-09-25 | Outpatient (CLI) | payer OTHER | LOC: M PAIN 13:45 | PROVIDERS: ATTEND Nurse Practitioner Family | DX: M54.2 Cervicalgia (principal); G89.29 Other chronic pain; G47.33 Obstructive sleep apnea (adult) (pediatric); F41.9 Anxiety disorder, unspecified; F32.A Depression, unspecified; G47.00 Insomnia, unspecified; F43.10 Post-traumatic stress disorder, unspecified; I10 Essential (primary) hypertension; E78.5 Hyperlipidemia, unspecified; G43.909 Migraine, unspecified, not intractable, without status migrainosus; M79.7 Fibromyalgia; J30.1 Allergic rhinitis due to pollen; K21.9 Gastro-esophageal reflux disease without esophagitis; M54.50 Low back pain, unspecified; I73.00 Raynaud's syndrome without gangrene; K76.0 Fatty (change of) liver, not elsewhere classified; Z87.891 Personal history of nicotine dependence; Z79.82 Long term (current) use of aspirin; Z79.891 Long term (current) use of opiate analgesic; Z79.899 Other long term (current) drug therapy; Z88.8 Allergy status to other drugs, medicaments and biological substances; Z91.030 Bee allergy status ==

== ENCOUNTER 2022-10-10 11:58 | Emergency (ER) | payer OTHER ==
[~2022-10-10] VITALS: Ht 195.6 cm; Wt 146.9 kg
[2022-10-10 11:58] VITALS: BP 150/94; TEMP 97.8; O2SAT 94
== END 2022-10-10 14:00 | disposition home or self-care (01) ==
LOC: M ED 11:58
DX: G56.21 Lesion of ulnar nerve, right upper limb (principal); I10 Essential (primary) hypertension; G89.29 Other chronic pain; Z91.040 Latex allergy status; Z79.899 Other long term (current) drug therapy; Z79.82 Long term (current) use of aspirin; Z79.51 Long term (current) use of inhaled steroids

== ENCOUNTER → 2022-12-18 | Outpatient (CLI) | payer OTHER ==
[~2022-12-18] MED LIST changes: +MIDAZOLAM INJ 2MG/2ML VIAL As Ordered ONE
[2022-12-18 08:45] VITALS: TEMP 97.8
[2022-12-18 11:15] VITALS: BP 112/63; O2SAT 97
== END ==
LOC: M RAD 08:32
PROVIDERS: ATTEND Nurse Practitioner Family
DX: M54.2 Cervicalgia (principal)
CPT/HCPCS: 72141; J2250

== ENCOUNTER → 2022-12-31 | Outpatient (CLI) | payer OTHER ==
[~2022-12-31] MED LIST changes: -MIDAZOLAM INJ 2MG/2ML VIAL As Ordered ONE
[2022-12-31 13:08] LABS: BLOOD UREA NITROGEN 14 MG/DL (9-23); CALCIUM LEVEL 8.6 MG/DL (8.5-10.1); CARBON DIOXIDE LEVEL 30 MMOL/L (20-31); CHLORIDE LEVEL 104 MMOL/L (98-107); CREATININE FOR GFR 0.74 MG/DL (0.70-1.30); GLOMERULAR FILTRATION RATE > 60.0 (>60); GLUCOSE, FASTING 114 MG/DL (60-100); POTASSIUM SERUM 3.9 MMOL/L (3.5-5.1); SODIUM LEVEL 138 MMOL/L (136-145)
== END ==
LOC: M LAB 12:12
PROVIDERS: ATTEND Physician Assistant
DX: M79.7 Fibromyalgia (principal)

== ENCOUNTER → 2023-01-01 | Outpatient (CLI) | payer OTHER ==
[~2023-01-01] MED LIST changes: +ISOVUE-370 76% 100ML VIAL As Ordered ONE
== END ==
LOC: M RAD 13:20
PROVIDERS: ATTEND Physician Assistant
DX: D48.0 Neoplasm of uncertain behavior of bone and articular cartilage (principal)

== ENCOUNTER → 2023-01-28 | Outpatient (REF) | payer OTHER ==
[~2023-01-28] MED LIST changes: -FLUT50SP17; +FLUTISP; -ISOVUE-370 76% 100ML VIAL As Ordered ONE
== END ==
LOC: M LAB REF 15:42
PROVIDERS: ATTEND Internal Medicine Endocrinology, Diabetes & Metabolism
DX: E04.1 Nontoxic single thyroid nodule (principal)

== ENCOUNTER → 2023-02-19 | Outpatient (CLI) | payer OTHER ==
[~2023-02-19] MED LIST changes: +HYDR200T46
== END ==
LOC: M PAIN 16:30
PROVIDERS: ATTEND Nurse Practitioner Family
DX: M79.12 Myalgia of auxiliary muscles, head and neck (principal); G89.29 Other chronic pain; Z79.891 Long term (current) use of opiate analgesic; Z79.899 Other long term (current) drug therapy; Z79.82 Long term (current) use of aspirin; Z87.891 Personal history of nicotine dependence; Z91.030 Bee allergy status; Z88.8 Allergy status to other drugs, medicaments and biological substances

== ENCOUNTER 2023-02-23 13:11 | Emergency (ER) | payer OTHER ==
[~2023-02-23] VITALS: Ht 195.6 cm; Wt 153.0 kg
[~2023-02-23 13:11] MED LIST changes: -HYDR200T46
[2023-02-23] MEDS ORDERED: HYDR200T46 (13:43)
[2023-02-23 15:50] VITALS: BP 141/96; TEMP 98.2; O2SAT 97
== END 2023-02-23 16:42 | disposition left against medical advice (07) ==
LOC: M ED 13:11
DX: Z53.21 Procedure and treatment not carried out due to patient leaving prior to being seen by health care provider (principal)

== ENCOUNTER → 2023-03-06 | Outpatient (CLI) | payer OTHER ==
[~2023-03-06] MED LIST changes: +HYDR200T46
== END ==
LOC: M PAIN 17:00
PROVIDERS: ATTEND Anesthesiology
DX: M54.2 Cervicalgia (principal); M79.10 Myalgia, unspecified site; Z87.898 Personal history of other specified conditions; G47.33 Obstructive sleep apnea (adult) (pediatric); F41.9 Anxiety disorder, unspecified; F32.A Depression, unspecified; G47.00 Insomnia, unspecified; F43.10 Post-traumatic stress disorder, unspecified; I10 Essential (primary) hypertension; E78.5 Hyperlipidemia, unspecified; K21.9 Gastro-esophageal reflux disease without esophagitis; Z87.891 Personal history of nicotine dependence; Z79.82 Long term (current) use of aspirin; Z79.891 Long term (current) use of opiate analgesic; Z79.899 Other long term (current) drug therapy; Z91.030 Bee allergy status; Z88.8 Allergy status to other drugs, medicaments and biological substances

== ENCOUNTER → 2023-04-29 | Outpatient (REF) | payer OTHER ==
[~2023-04-29] MED LIST changes: +PROP10TA56
== END ==
LOC: M SFHCRHEU 17:23
PROVIDERS: ATTEND Internal Medicine
DX: R76.8 Other specified abnormal immunological findings in serum (principal); Z53.9 Procedure and treatment not carried out, unspecified reason

== ENCOUNTER 2023-04-30 09:32 | Emergency (ER) | payer OTHER ==
[~2023-04-30] VITALS: Ht 195.6 cm; Wt 150.7 kg
[~2023-04-30 09:32] MED LIST changes: -PROP10TA56
[2023-04-30 09:33] VITALS: BP 140/89; TEMP 98.8; O2SAT 97
[2023-04-30] MEDS ORDERED: PROP10TA56 (09:52)
== END 2023-04-30 13:35 | disposition left against medical advice (07) ==
LOC: M ED 09:32
DX: Z53.21 Procedure and treatment not carried out due to patient leaving prior to being seen by health care provider (principal)

== ENCOUNTER → 2023-05-01 | Outpatient (REF) | payer OTHER ==
[~2023-05-01] MED LIST changes: +PROP10TA56
[2023-05-01 16:58] LABS: APPEARANCE, URINE HAZY (CLEAR); BACTERIA, URINE AUTO NEGATIVE (NEGATIVE); BILIRUBIN, URINE AUTO NEGATIVE (NEGATIVE); BLOOD, URINE BLOOD NEGATIVE (NEGATIVE); COLOR, URINE AMBER (YELLOW); GLUCOSE, URINE (UA) AUTO NEGATIVE (NEGATIVE); KETONE, URINE AUTO NEGATIVE (NEGATIVE); LEUKOCYTE ESTERASE, URINE AUTO NEGATIVE (NEGATIVE); MUCUS, URINE SMALL (NEGATIVE); NITRITE, URINE AUTO NEGATIVE (NEGATIVE); PROTEIN, URINE AUTO 1+ mg/dL (NEGATIVE); RBC, URINE AUTO 0 /HPF (0-3); SPECIFIC GRAVITY URINE AUTO 1.028 (1.002-1.035); SQUAMOUS EPITHELIAL CELL UR AU 0 /HPF (0-6); UROBILINOGEN, URINE AUTO 0.2 mg/dL (0.0-2.0); WBC, URINE AUTO 1 /HPF (0-3)
[2023-05-01 17:00] LABS: CALCIUM OXALATE CRYSTALS SMALL
[2023-05-01 17:48] LABS: TOTAL PROTEIN,RANDOM URINE 30.7 MG/DL (0.0-14.0)
== END ==
LOC: M SFHCRHEU 15:28
PROVIDERS: ATTEND Internal Medicine
DX: R76.8 Other specified abnormal immunological findings in serum (principal); Z79.899 Other long term (current) drug therapy

== ENCOUNTER → 2023-05-02 | Outpatient (CLI) | payer OTHER | LOC: M LAB 16:20 | PROVIDERS: ATTEND Internal Medicine | DX: Z79.899 Other long term (current) drug therapy (principal); R76.8 Other specified abnormal immunological findings in serum ==

== ENCOUNTER → 2023-06-25 | Outpatient (CLI) | payer OTHER ==
[2023-06-25 10:54] LABS: BASO # 0.1 10^3/uL (0.0-0.2); BASO % 1.1 % (0.0-1.0); EOS # 0.1 10^3/uL (0.0-0.5); EOS % 1.6 % (0.0-3.0); HEMATOCRIT 43.7 % (42.0-52.0); HEMOGLOBIN 14.5 g/dl (13.5-17.5); LYMPH # 1.5 10^3/uL (1.5-5.0); LYMPH % 24.1 % (24.0-44.0); MEAN CORPUSCULAR HEMOGLOBIN 31.2 pg (27.0-33.0); MEAN CORPUSCULAR HGB CONC 33.2 g/dl (32.0-36.5); MONO # 0.5 10^3/uL (0.0-0.8); MONO % 8.6 % (2.0-8.0); NEUTROPHILS # 3.9 10^3/uL (1.5-8.5); NEUTROPHILS % 64.3 % (36.0-66.0); PLATELET COUNT, AUTOMATED 245 10^3/uL (150-450); RED BLOOD COUNT 4.65 10^6/uL (4.30-6.10); WHITE BLOOD COUNT 6.1 10^3/uL (4.0-10.0)
[2023-06-25 11:00] LABS: ERYTHROCYTE SEDIMENTATION RATE 42 mm/hr (0-15)
[2023-06-25 11:12] LABS: C REACTIVE PROTEIN QUANTITATIV < 0.40 MG/DL (<1.0)
[2023-06-25 11:13] LABS: ALBUMIN 3.8 G/DL (3.2-5.2); ALKALINE PHOSPHATASE 77 U/L (46-116); ALT/SGPT 50 U/L (7.0-40); AST/SGOT 23 U/L (<34); BILIRUBIN,DIRECT < 0.1 MG/DL (<0.4); BILIRUBIN,TOTAL 0.4 MG/DL (0.3-1.2); BLOOD UREA NITROGEN 12 MG/DL (9-23); CARBON DIOXIDE LEVEL 29 MMOL/L (20-31); CHLORIDE LEVEL 103 MMOL/L (98-107); CREATININE FOR GFR 0.78 MG/DL (0.70-1.30); GLOMERULAR FILTRATION RATE > 60.0 (>60); GLUCOSE, FASTING 90 MG/DL (60-100); POTASSIUM SERUM 4.7 MMOL/L (3.5-5.1); SODIUM LEVEL 138 MMOL/L (136-145); TOTAL PROTEIN 7.1 G/DL (5.7-8.2)
== END ==
LOC: M LAB 09:18
PROVIDERS: ATTEND Internal Medicine
DX: M06.09 Rheumatoid arthritis without rheumatoid factor, multiple sites (principal)

== ENCOUNTER → 2023-08-20 | Outpatient (CLI) | payer OTHER ==
[~2023-08-20] MED LIST changes: -IMIP50TA3; +IMIP50TA8
[2023-08-20 18:09] LABS: BASO # 0.1 10^3/uL (0.0-0.2); EOS # 0.2 10^3/uL (0.0-0.5); EOS % 2.5 % (0.0-3.0); HEMATOCRIT 42.9 % (42.0-52.0); LYMPH # 1.7 10^3/uL (1.5-5.0); LYMPH % 25.6 % (24.0-44.0); MEAN CORPUSCULAR HGB CONC 32.6 g/dl (32.0-36.5); MEAN CORPUSCULAR VOLUME 94.9 fl (80.0-96.0); MONO # 0.5 10^3/uL (0.0-0.8); MONO % 6.7 % (2.0-8.0); NEUTROPHILS # 4.3 10^3/uL (1.5-8.5); NEUTROPHILS % 63.9 % (36.0-66.0); PLATELET COUNT, AUTOMATED 206 10^3/uL (150-450); RED BLOOD COUNT 4.52 10^6/uL (4.30-6.10); WHITE BLOOD COUNT 6.7 10^3/uL (4.0-10.0)
[2023-08-20 18:12] LABS: ALBUMIN 3.7 G/DL (3.2-5.2); ALKALINE PHOSPHATASE 89 U/L (46-116); ALT/SGPT 69 U/L (7.0-40); AST/SGOT 28 U/L (<34); BILIRUBIN,DIRECT < 0.1 MG/DL (<0.4); BILIRUBIN,TOTAL 0.3 MG/DL (0.3-1.2); BLOOD UREA NITROGEN 24 MG/DL (9-23); CALCIUM LEVEL 8.6 MG/DL (8.5-10.1); CARBON DIOXIDE LEVEL 29 MMOL/L (20-31); CHLORIDE LEVEL 106 MMOL/L (98-107); CREATININE FOR GFR 0.74 MG/DL (0.70-1.30); GLOMERULAR FILTRATION RATE > 60.0 (>60); GLUCOSE, FASTING 151 MG/DL (60-100); SODIUM LEVEL 141 MMOL/L (136-145); TOTAL PROTEIN 6.8 G/DL (5.7-8.2)
[2023-08-20 18:20] LABS: ERYTHROCYTE SEDIMENTATION RATE 45 mm/hr (0-15)
== END ==
LOC: M PLALAB 15:14
PROVIDERS: ATTEND Internal Medicine
DX: M06.09 Rheumatoid arthritis without rheumatoid factor, multiple sites (principal)

== ENCOUNTER → 2023-09-16 | Outpatient (CLI) | payer OTHER ==
[2023-09-16 14:21] LABS: BASO # 0.1 10^3/uL (0.0-0.2); BASO % 0.9 % (0.0-1.0); EOS # 0.2 10^3/uL (0.0-0.5); EOS % 2.1 % (0.0-3.0); HEMOGLOBIN 13.2 g/dl (13.5-17.5); LYMPH # 2.6 10^3/uL (1.5-5.0); LYMPH % 34.5 % (24.0-44.0); MEAN CORPUSCULAR HEMOGLOBIN 30.9 pg (27.0-33.0); MEAN CORPUSCULAR VOLUME 93.7 fl (80.0-96.0); MONO # 0.7 10^3/uL (0.0-0.8); NEUTROPHILS # 4.1 10^3/uL (1.5-8.5); PLATELET COUNT, AUTOMATED 204 10^3/uL (150-450); RED BLOOD COUNT 4.27 10^6/uL (4.30-6.10); WHITE BLOOD COUNT 7.7 10^3/uL (4.0-10.0)
[2023-09-16 14:27] LABS: ERYTHROCYTE SEDIMENTATION RATE 45 mm/hr (0-15)
[2023-09-16 14:46] LABS: ALBUMIN 3.7 G/DL (3.2-5.2); ALKALINE PHOSPHATASE 84 U/L (46-116); ALT/SGPT 55 U/L (7.0-40); AST/SGOT 17 U/L (<34); BILIRUBIN,DIRECT 0.1 MG/DL (<0.4); BILIRUBIN,TOTAL 0.4 MG/DL (0.3-1.2); BLOOD UREA NITROGEN 18 MG/DL (9-23); CALCIUM LEVEL 8.7 MG/DL (8.5-10.1); CARBON DIOXIDE LEVEL 32 MMOL/L (20-31); CHLORIDE LEVEL 103 MMOL/L (98-107); CREATININE FOR GFR 0.84 MG/DL (0.70-1.30); GLOMERULAR FILTRATION RATE > 60.0 (>60); GLUCOSE, FASTING 83 MG/DL (60-100); HEPATITIS B SURFACE ANTIBODY NEGATIVE (POSITIVE); POTASSIUM SERUM 3.9 MMOL/L (3.5-5.1); SODIUM LEVEL 139 MMOL/L (136-145); TOTAL PROTEIN 6.7 G/DL (5.7-8.2)
[2023-09-16 14:58] LABS: HEPATITIS B SURFACE ANTIGEN NEGATIVE (NEGATIVE)
[2023-09-16 15:20] LABS: HEPATITIS C VIRUS ABY INDEX < 0.02 INDEX (<0.8)
[2023-09-17 10:03] LABS: HEPATITIS B CORE ANTIBODY IGG NON-REACTIVE (NON-REACTIVE)
[2023-09-18 14:22] LABS: QuantiFERON-TB Gold Plus NEGATIVE (NEGATIVE)
== END ==
LOC: M PLALAB 11:35
PROVIDERS: ATTEND Internal Medicine
DX: M06.09 Rheumatoid arthritis without rheumatoid factor, multiple sites (principal)

== ENCOUNTER → 2023-10-01 | Outpatient (CLI) | payer OTHER ==
[2023-10-01 12:44] LABS: INR 1.09; PROTHROMBIN TIME 13.8 SECONDS (12.5-14.5)
[2023-10-01 12:58] LABS: COLLAGEN EPINEPHRINE 147 SECONDS (74-162)
[2023-10-01 13:33] LABS: BASO # 0.1 10^3/uL (0.0-0.2); BASO % 0.7 % (0.0-1.0); EOS # 0.1 10^3/uL (0.0-0.5); EOS % 1.4 % (0.0-3.0); HEMATOCRIT 40.7 % (42.0-52.0); HEMOGLOBIN 13.3 g/dl (13.5-17.5); LYMPH # 2.1 10^3/uL (1.5-5.0); LYMPH % 24.3 % (24.0-44.0); MEAN CORPUSCULAR HEMOGLOBIN 31.2 pg (27.0-33.0); MEAN CORPUSCULAR HGB CONC 32.7 g/dl (32.0-36.5); MEAN CORPUSCULAR VOLUME 95.5 fl (80.0-96.0); MONO % 11.6 % (2.0-8.0); NEUTROPHILS # 5.4 10^3/uL (1.5-8.5); NEUTROPHILS % 61.7 % (36.0-66.0); PLATELET COUNT, AUTOMATED 224 10^3/uL (150-450); RED BLOOD COUNT 4.26 10^6/uL (4.30-6.10); WHITE BLOOD COUNT 8.7 10^3/uL (4.0-10.0)
== END ==
LOC: M PLALAB 11:23
PROVIDERS: ATTEND Internal Medicine Hematology
DX: D69.9 Hemorrhagic condition, unspecified (principal)

== ENCOUNTER → 2023-10-15 | Outpatient (CLI) | payer OTHER ==
[2023-10-15 18:27] LABS: BASO # 0.1 10^3/uL (0.0-0.2); BASO % 0.7 % (0.0-1.0); EOS # 0.1 10^3/uL (0.0-0.5); EOS % 1.7 % (0.0-3.0); HEMATOCRIT 43.8 % (42.0-52.0); HEMOGLOBIN 14.1 g/dl (13.5-17.5); LYMPH # 1.7 10^3/uL (1.5-5.0); LYMPH % 22.3 % (24.0-44.0); MEAN CORPUSCULAR HGB CONC 32.2 g/dl (32.0-36.5); MEAN CORPUSCULAR VOLUME 96.3 fl (80.0-96.0); MONO # 0.6 10^3/uL (0.0-0.8); NEUTROPHILS % 66.4 % (36.0-66.0); PLATELET COUNT, AUTOMATED 211 10^3/uL (150-450); RED BLOOD COUNT 4.55 10^6/uL (4.30-6.10); WHITE BLOOD COUNT 7.5 10^3/uL (4.0-10.0)
[2023-10-15 18:39] LABS: ERYTHROCYTE SEDIMENTATION RATE 56 mm/hr (0-15)
[2023-10-15 18:42] LABS: ALBUMIN 3.9 G/DL (3.2-5.2); ALKALINE PHOSPHATASE 106 U/L (46-116); ALT/SGPT 74 U/L (7.0-40); AST/SGOT 31 U/L (<34); BILIRUBIN,DIRECT < 0.1 MG/DL (<0.4); BILIRUBIN,TOTAL 0.3 MG/DL (0.3-1.2); BLOOD UREA NITROGEN 20 MG/DL (9-23); CALCIUM LEVEL 8.8 MG/DL (8.5-10.1); CARBON DIOXIDE LEVEL 30 MMOL/L (20-31); CHLORIDE LEVEL 104 MMOL/L (98-107); CREATININE FOR GFR 0.76 MG/DL (0.70-1.30); GLOMERULAR FILTRATION RATE > 60.0 (>60); GLUCOSE, FASTING 103 MG/DL (60-100); POTASSIUM SERUM 4.2 MMOL/L (3.5-5.1); SODIUM LEVEL 139 MMOL/L (136-145); TOTAL PROTEIN 7.3 G/DL (5.7-8.2)
== END ==
LOC: M PLALAB 15:00
PROVIDERS: ATTEND Internal Medicine
DX: M06.09 Rheumatoid arthritis without rheumatoid factor, multiple sites (principal)

== ENCOUNTER → 2023-11-13 | Outpatient (CLI) | payer OTHER ==
[2023-11-13 12:30] LABS: BASO # 0.1 10^3/uL (0.0-0.2); EOS # 0.2 10^3/uL (0.0-0.5); EOS % 2.1 % (0.0-3.0); HEMATOCRIT 43.7 % (42.0-52.0); HEMOGLOBIN 14.1 g/dl (13.5-17.5); LYMPH # 2.6 10^3/uL (1.5-5.0); LYMPH % 35.6 % (24.0-44.0); MEAN CORPUSCULAR HEMOGLOBIN 30.5 pg (27.0-33.0); MEAN CORPUSCULAR HGB CONC 32.3 g/dl (32.0-36.5); MEAN CORPUSCULAR VOLUME 94.6 fl (80.0-96.0); MONO # 0.7 10^3/uL (0.0-0.8); MONO % 9.2 % (2.0-8.0); NEUTROPHILS # 3.8 10^3/uL (1.5-8.5); NEUTROPHILS % 51.8 % (36.0-66.0); PLATELET COUNT, AUTOMATED 211 10^3/uL (150-450); RED BLOOD COUNT 4.62 10^6/uL (4.30-6.10); WHITE BLOOD COUNT 7.3 10^3/uL (4.0-10.0)
[2023-11-13 12:39] LABS: ERYTHROCYTE SEDIMENTATION RATE 44 mm/hr (0-15)
[2023-11-13 13:00] LABS: C REACTIVE PROTEIN QUANTITATIV < 0.40 MG/DL (<1.0)
[2023-11-13 13:01] LABS: ALBUMIN 3.7 G/DL (3.2-5.2); ALKALINE PHOSPHATASE 90 U/L (46-116); ALT/SGPT 69 U/L (7.0-40); AST/SGOT 30 U/L (<34); BILIRUBIN,DIRECT < 0.1 MG/DL (<0.4); BILIRUBIN,TOTAL 0.2 MG/DL (0.3-1.2); BLOOD UREA NITROGEN 10 MG/DL (9-23); CARBON DIOXIDE LEVEL 28 MMOL/L (20-31); CHLORIDE LEVEL 106 MMOL/L (98-107); CREATININE FOR GFR 0.76 MG/DL (0.70-1.30); GLOMERULAR FILTRATION RATE > 60.0 (>60); GLUCOSE, FASTING 97 MG/DL (60-100); POTASSIUM SERUM 3.6 MMOL/L (3.5-5.1); SODIUM LEVEL 140 MMOL/L (136-145)
== END ==
LOC: M WUC 10:05
PROVIDERS: ATTEND Internal Medicine
DX: M06.09 Rheumatoid arthritis without rheumatoid factor, multiple sites (principal)

== ENCOUNTER → 2023-12-10 | Outpatient (CLI) | payer OTHER ==
[~2023-12-10] MED LIST changes: +GABA-1172; -GABA-282; +IMIP50TA10; -IMIP50TA8; -VITA500C19 PO; +VITA500C22 PO
[2023-12-10 13:46] LABS: BASO # 0.1 10^3/uL (0.0-0.2); BASO % 1.1 % (0.0-1.0); EOS # 0.2 10^3/uL (0.0-0.5); EOS % 1.9 % (0.0-3.0); HEMATOCRIT 44.3 % (42.0-52.0); HEMOGLOBIN 14.4 g/dl (13.5-17.5); LYMPH # 2.3 10^3/uL (1.5-5.0); LYMPH % 29.1 % (24.0-44.0); MEAN CORPUSCULAR HEMOGLOBIN 30.6 pg (27.0-33.0); MEAN CORPUSCULAR HGB CONC 32.5 g/dl (32.0-36.5); MEAN CORPUSCULAR VOLUME 94.1 fl (80.0-96.0); MONO # 0.8 10^3/uL (0.0-0.8); MONO % 10.3 % (2.0-8.0); NEUTROPHILS # 4.5 10^3/uL (1.5-8.5); PLATELET COUNT, AUTOMATED 215 10^3/uL (150-450); RED BLOOD COUNT 4.71 10^6/uL (4.30-6.10); WHITE BLOOD COUNT 7.9 10^3/uL (4.0-10.0)
[2023-12-10 13:54] LABS: ALBUMIN 3.7 G/DL (3.2-5.2); ALKALINE PHOSPHATASE 91 U/L (46-116); ALT/SGPT 72 U/L (7.0-40); AST/SGOT 29 U/L (<34); BILIRUBIN,DIRECT < 0.1 MG/DL (<0.4); BILIRUBIN,TOTAL 0.3 MG/DL (0.3-1.2); BLOOD UREA NITROGEN 19 MG/DL (9-23); CALCIUM LEVEL 9.1 MG/DL (8.5-10.1); CARBON DIOXIDE LEVEL 29 MMOL/L (20-31); CHLORIDE LEVEL 106 MMOL/L (98-107); CREATININE FOR GFR 0.84 MG/DL (0.70-1.30); GLOMERULAR FILTRATION RATE > 60.0 (>60); GLUCOSE, FASTING 94 MG/DL (60-100); POTASSIUM SERUM 4.2 MMOL/L (3.5-5.1); SODIUM LEVEL 142 MMOL/L (136-145); TOTAL PROTEIN 7.2 G/DL (5.7-8.2)
[2023-12-10 13:58] LABS: ERYTHROCYTE SEDIMENTATION RATE 45 mm/hr (0-15)
== END ==
LOC: M PLALAB 10:39
PROVIDERS: ATTEND Internal Medicine
DX: M06.09 Rheumatoid arthritis without rheumatoid factor, multiple sites (principal)

== ENCOUNTER → 2023-12-11 | Outpatient (CLI) | payer OTHER | LOC: M PAIN 17:00 | PROVIDERS: ATTEND Anesthesiology | DX: M54.2 Cervicalgia (principal); M79.10 Myalgia, unspecified site; M54.50 Low back pain, unspecified; M79.18 Myalgia, other site; G47.33 Obstructive sleep apnea (adult) (pediatric); F41.9 Anxiety disorder, unspecified; F32.A Depression, unspecified; G47.00 Insomnia, unspecified; F43.10 Post-traumatic stress disorder, unspecified; F90.9 Attention-deficit hyperactivity disorder, unspecified type; I10 Essential (primary) hypertension; E78.5 Hyperlipidemia, unspecified; G43.909 Migraine, unspecified, not intractable, without status migrainosus; K21.9 Gastro-esophageal reflux disease without esophagitis; F17.290 Nicotine dependence, other tobacco product, uncomplicated; Z79.82 Long term (current) use of aspirin; Z79.891 Long term (current) use of opiate analgesic; Z79.899 Other long term (current) drug therapy; Z79.1 Long term (current) use of non-steroidal anti-inflammatories (NSAID); Z91.030 Bee allergy status; Z88.8 Allergy status to other drugs, medicaments and biological substances ==

== ENCOUNTER → 2023-12-20 | Outpatient (CLI) | payer OTHER ==
[2023-12-20 13:10] LABS: FERRITIN 257.6 NG/ML (10.5-307.3); PERCENT SATURATION 28.8 % (19.7-50.0)
== END ==
LOC: M WUC 10:03
PROVIDERS: ATTEND Psychiatry & Neurology Neurology
DX: G25.81 Restless legs syndrome (principal)

== ENCOUNTER → 2024-02-24 | Outpatient (CLI) | payer OTHER ==
[2024-02-24 17:24] LABS: ALBUMIN 3.8 G/DL (3.2-5.2); ALKALINE PHOSPHATASE 88 U/L (40-129); ALT/SGPT 73 U/L (7.0-40); AST/SGOT 29 U/L (<34); BILIRUBIN,DIRECT < 0.1 MG/DL (<0.4); BILIRUBIN,TOTAL 0.3 MG/DL (0.3-1.2); BLOOD UREA NITROGEN 17 MG/DL (9-23); C REACTIVE PROTEIN QUANTITATIV 0.54 MG/DL (<1.0); CALCIUM LEVEL 9.2 MG/DL (8.5-10.1); CARBON DIOXIDE LEVEL 31 MMOL/L (20-31); CHLORIDE LEVEL 103 MMOL/L (98-107); CREATININE FOR GFR 0.78 MG/DL (0.70-1.30); GLOMERULAR FILTRATION RATE > 60.0 (>60); GLUCOSE, FASTING 121 MG/DL (60-100); SODIUM LEVEL 144 MMOL/L (136-145); TOTAL PROTEIN 7.4 G/DL (5.7-8.2)
[2024-02-24 17:25] LABS: BASO # 0.1 10^3/uL (0.0-0.2); EOS # 0.2 10^3/uL (0.0-0.5); EOS % 2.7 % (0.0-3.0); HEMATOCRIT 45.5 % (42.0-52.0); HEMOGLOBIN 14.5 g/dl (13.5-17.5); LYMPH # 3.2 10^3/uL (1.5-5.0); LYMPH % 37.4 % (24.0-44.0); MEAN CORPUSCULAR HGB CONC 31.9 g/dl (32.0-36.5); MEAN CORPUSCULAR VOLUME 97.2 fl (80.0-96.0); MONO # 0.7 10^3/uL (0.0-0.8); MONO % 7.7 % (2.0-8.0); NEUTROPHILS # 4.3 10^3/uL (1.5-8.5); NEUTROPHILS % 50.8 % (36.0-66.0); PLATELET COUNT, AUTOMATED 231 10^3/uL (150-450); RED BLOOD COUNT 4.68 10^6/uL (4.30-6.10); WHITE BLOOD COUNT 8.4 10^3/uL (4.0-10.0)
[2024-02-24 17:29] LABS: ERYTHROCYTE SEDIMENTATION RATE 38 mm/hr (0-15)
== END ==
LOC: M WUC 11:20
PROVIDERS: ATTEND Internal Medicine
DX: M06.09 Rheumatoid arthritis without rheumatoid factor, multiple sites (principal)

== ENCOUNTER → 2024-02-29 | Outpatient (CLI) | payer OTHER | LOC: M RAD 12:30 | PROVIDERS: ATTEND Internal Medicine | DX: M06.9 Rheumatoid arthritis, unspecified (principal) ==

== ENCOUNTER → 2024-03-12 | Outpatient (CLI) | payer OTHER ==
[~2024-03-12] MED LIST changes: +TRIAMCINOLONE ACETONIDE SUSP 40MG/ML 1ML VIAL As Ordered ONE
== END ==
LOC: M PAIN 14:30
PROVIDERS: ATTEND Anesthesiology
DX: M79.18 Myalgia, other site (principal); M79.10 Myalgia, unspecified site; G89.29 Other chronic pain; G47.33 Obstructive sleep apnea (adult) (pediatric); I10 Essential (primary) hypertension; E78.5 Hyperlipidemia, unspecified; K21.9 Gastro-esophageal reflux disease without esophagitis; M54.50 Low back pain, unspecified; Z79.899 Other long term (current) drug therapy; Z88.8 Allergy status to other drugs, medicaments and biological substances; Z91.030 Bee allergy status
CPT/HCPCS: 20552; J0665; J3301

== ENCOUNTER → 2024-03-13 | Outpatient (CLI) | payer OTHER ==
[~2024-03-13] MED LIST changes: -TRIAMCINOLONE ACETONIDE SUSP 40MG/ML 1ML VIAL As Ordered ONE
[2024-03-13 13:37] LABS: BASO # 0.1 10^3/uL (0.0-0.2); BASO % 0.7 % (0.0-1.0); EOS # 0.1 10^3/uL (0.0-0.5); HEMATOCRIT 44.6 % (42.0-52.0); HEMOGLOBIN 14.6 g/dl (13.5-17.5); LYMPH # 1.9 10^3/uL (1.5-5.0); LYMPH % 23.1 % (24.0-44.0); MEAN CORPUSCULAR HEMOGLOBIN 31.5 pg (27.0-33.0); MEAN CORPUSCULAR HGB CONC 32.7 g/dl (32.0-36.5); MEAN CORPUSCULAR VOLUME 96.3 fl (80.0-96.0); MONO # 0.6 10^3/uL (0.0-0.8); MONO % 7.8 % (2.0-8.0); NEUTROPHILS # 5.5 10^3/uL (1.5-8.5); PLATELET COUNT, AUTOMATED 253 10^3/uL (150-450); RED BLOOD COUNT 4.63 10^6/uL (4.30-6.10); WHITE BLOOD COUNT 8.2 10^3/uL (4.0-10.0)
[2024-03-13 13:44] LABS: ERYTHROCYTE SEDIMENTATION RATE 41 mm/hr (0-15)
[2024-03-13 14:04] LABS: C REACTIVE PROTEIN QUANTITATIV < 0.50 MG/DL (<1.0)
[2024-03-13 14:05] LABS: ALBUMIN 3.8 G/DL (3.2-5.2); ALKALINE PHOSPHATASE 83 U/L (40-129); ALT/SGPT 76 U/L (7.0-40); AST/SGOT 36 U/L (<34); BILIRUBIN,DIRECT < 0.1 MG/DL (<0.4); BILIRUBIN,TOTAL 0.3 MG/DL (0.3-1.2); BLOOD UREA NITROGEN 18 MG/DL (9-23); CALCIUM LEVEL 9.3 MG/DL (8.5-10.1); CARBON DIOXIDE LEVEL 32 MMOL/L (20-31); CHLORIDE LEVEL 102 MMOL/L (98-107); CREATININE FOR GFR 0.72 MG/DL (0.70-1.30); GLOMERULAR FILTRATION RATE > 60.0 (>60); GLUCOSE, FASTING 98 MG/DL (60-100); POTASSIUM SERUM 3.9 MMOL/L (3.5-5.1); SODIUM LEVEL 143 MMOL/L (136-145); TOTAL PROTEIN 7.6 G/DL (5.7-8.2)
== END ==
LOC: M WUC 10:08
PROVIDERS: ATTEND Internal Medicine
DX: M06.09 Rheumatoid arthritis without rheumatoid factor, multiple sites (principal)

== ENCOUNTER → 2024-04-08 | Outpatient (CLI) | payer OTHER ==
[2024-04-08 15:58] LABS: ALBUMIN 3.8 G/DL (3.2-5.2); ALKALINE PHOSPHATASE 86 U/L (40-129); ALT/SGPT 71 U/L (7.0-40); AST/SGOT 31 U/L (<34); BILIRUBIN,DIRECT < 0.1 MG/DL (<0.4); BILIRUBIN,TOTAL 0.3 MG/DL (0.3-1.2); BLOOD UREA NITROGEN 15 MG/DL (9-23); C REACTIVE PROTEIN QUANTITATIV 0.61 MG/DL (<1.0); CALCIUM LEVEL 8.4 MG/DL (8.5-10.1); CARBON DIOXIDE LEVEL 28 MMOL/L (20-31); CHLORIDE LEVEL 103 MMOL/L (98-107); CREATININE FOR GFR 0.82 MG/DL (0.70-1.30); GLOMERULAR FILTRATION RATE > 60.0 (>60); GLUCOSE, FASTING 104 MG/DL (60-100); SODIUM LEVEL 143 MMOL/L (136-145); TOTAL PROTEIN 7.2 G/DL (5.7-8.2)
[2024-04-08 16:02] LABS: BASO # 0.1 10^3/uL (0.0-0.2); BASO % 1.2 % (0.0-1.0); EOS # 0.2 10^3/uL (0.0-0.5); EOS % 2.2 % (0.0-3.0); HEMATOCRIT 46.4 % (42.0-52.0); HEMOGLOBIN 14.7 g/dl (13.5-17.5); LYMPH # 2.2 10^3/uL (1.5-5.0); LYMPH % 29.1 % (24.0-44.0); MEAN CORPUSCULAR HGB CONC 31.7 g/dl (32.0-36.5); MEAN CORPUSCULAR VOLUME 97.9 fl (80.0-96.0); MONO # 0.7 10^3/uL (0.0-0.8); MONO % 9.3 % (2.0-8.0); NEUTROPHILS # 4.4 10^3/uL (1.5-8.5); NEUTROPHILS % 57.8 % (36.0-66.0); PLATELET COUNT, AUTOMATED 244 10^3/uL (150-450); RED BLOOD COUNT 4.74 10^6/uL (4.30-6.10); WHITE BLOOD COUNT 7.7 10^3/uL (4.0-10.0)
[2024-04-08 16:17] LABS: ERYTHROCYTE SEDIMENTATION RATE 49 mm/hr (0-15)
== END ==
LOC: M WUC 10:19
PROVIDERS: ATTEND Internal Medicine
DX: M06.09 Rheumatoid arthritis without rheumatoid factor, multiple sites (principal)

== ENCOUNTER → 2024-05-08 | Outpatient (CLI) | payer OTHER ==
[2024-05-08 19:07] LABS: BASO # 0.1 10^3/uL (0.0-0.2); EOS # 0.1 10^3/uL (0.0-0.5); EOS % 1.7 % (0.0-3.0); HEMATOCRIT 48.2 % (42.0-52.0); HEMOGLOBIN 15.1 g/dl (13.5-17.5); LYMPH # 1.9 10^3/uL (1.5-5.0); LYMPH % 27.9 % (24.0-44.0); MEAN CORPUSCULAR HGB CONC 31.3 g/dl (32.0-36.5); MONO # 0.7 10^3/uL (0.0-0.8); MONO % 9.8 % (2.0-8.0); NEUTROPHILS # 4.1 10^3/uL (1.5-8.5); PLATELET COUNT, AUTOMATED 252 10^3/uL (150-450); RED BLOOD COUNT 4.87 10^6/uL (4.30-6.10)
[2024-05-08 19:22] LABS: ERYTHROCYTE SEDIMENTATION RATE 45 mm/hr (0-15)
[2024-05-08 19:35] LABS: ALKALINE PHOSPHATASE 85 U/L (40-129); ALT/SGPT 57 U/L (7.0-40); AST/SGOT 26 U/L (<34); BILIRUBIN,DIRECT 0.1 MG/DL (<0.4); BILIRUBIN,TOTAL 0.4 MG/DL (0.3-1.2); BLOOD UREA NITROGEN 17 MG/DL (9-23); C REACTIVE PROTEIN QUANTITATIV < 0.50 MG/DL (<1.0); CALCIUM LEVEL 9.3 MG/DL (8.5-10.1); CARBON DIOXIDE LEVEL 29 MMOL/L (20-31); CHLORIDE LEVEL 101 MMOL/L (98-107); CREATININE FOR GFR 0.96 MG/DL (0.70-1.30); GLOMERULAR FILTRATION RATE > 60.0 (>60); GLUCOSE, FASTING 107 MG/DL (60-100); POTASSIUM SERUM 4.4 MMOL/L (3.5-5.1); SODIUM LEVEL 143 MMOL/L (136-145); TOTAL PROTEIN 7.5 G/DL (5.7-8.2)
== END ==
LOC: M WUC 13:04
PROVIDERS: ATTEND Internal Medicine
DX: M06.09 Rheumatoid arthritis without rheumatoid factor, multiple sites (principal)

== ENCOUNTER → 2024-05-25 | Outpatient (CLI) | payer OTHER ==
[2024-05-25 12:58] LABS: BASO # 0.1 10^3/uL (0.0-0.2); BASO % 0.8 % (0.0-1.0); EOS # 0.1 10^3/uL (0.0-0.5); EOS % 1.5 % (0.0-3.0); HEMATOCRIT 45.4 % (42.0-52.0); HEMOGLOBIN 14.8 g/dl (13.5-17.5); LYMPH # 2.5 10^3/uL (1.5-5.0); LYMPH % 32.5 % (24.0-44.0); MEAN CORPUSCULAR HEMOGLOBIN 31.2 pg (27.0-33.0); MEAN CORPUSCULAR HGB CONC 32.6 g/dl (32.0-36.5); MEAN CORPUSCULAR VOLUME 95.8 fl (80.0-96.0); MONO # 0.7 10^3/uL (0.0-0.8); MONO % 9.5 % (2.0-8.0); NEUTROPHILS # 4.2 10^3/uL (1.5-8.5); NEUTROPHILS % 55.3 % (36.0-66.0); PLATELET COUNT, AUTOMATED 207 10^3/uL (150-450); RED BLOOD COUNT 4.74 10^6/uL (4.30-6.10); WHITE BLOOD COUNT 7.6 10^3/uL (4.0-10.0)
[2024-05-25 13:10] LABS: ERYTHROCYTE SEDIMENTATION RATE 44 mm/hr (0-15)
[2024-05-25 13:24] LABS: C REACTIVE PROTEIN QUANTITATIV < 0.50 MG/DL (<1.0)
[2024-05-25 13:25] LABS: ALBUMIN 3.9 G/DL (3.2-5.2); ALKALINE PHOSPHATASE 78 U/L (40-129); ALT/SGPT 71 U/L (7.0-40); AST/SGOT 33 U/L (<34); BILIRUBIN,DIRECT 0.1 MG/DL (<0.4); BILIRUBIN,TOTAL 0.3 MG/DL (0.3-1.2); BLOOD UREA NITROGEN 13 MG/DL (9-23); CALCIUM LEVEL 8.5 MG/DL (8.5-10.1); CARBON DIOXIDE LEVEL 30 MMOL/L (20-31); CHLORIDE LEVEL 104 MMOL/L (98-107); CREATININE FOR GFR 0.78 MG/DL (0.70-1.30); GLOMERULAR FILTRATION RATE > 60.0 (>60); GLUCOSE, FASTING 91 MG/DL (60-100); POTASSIUM SERUM 3.9 MMOL/L (3.5-5.1); SODIUM LEVEL 143 MMOL/L (136-145); TOTAL PROTEIN 7.2 G/DL (5.7-8.2)
== END ==
LOC: M WUC 10:33
PROVIDERS: ATTEND Internal Medicine
DX: M06.09 Rheumatoid arthritis without rheumatoid factor, multiple sites (principal)

== ENCOUNTER → 2024-06-22 | Outpatient (CLI) | payer OTHER ==
[~2024-06-22] MED LIST changes: +BUPR-670; -BUPR1TAB52
[2024-06-22 18:24] LABS: BASO # 0.1 10^3/uL (0.0-0.2); BASO % 0.9 % (0.0-1.0); EOS # 0.1 10^3/uL (0.0-0.5); EOS % 1.7 % (0.0-3.0); HEMATOCRIT 45.9 % (42.0-52.0); HEMOGLOBIN 14.8 g/dl (13.5-17.5); LYMPH % 29.2 % (24.0-44.0); MEAN CORPUSCULAR HEMOGLOBIN 31.6 pg (27.0-33.0); MEAN CORPUSCULAR HGB CONC 32.2 g/dl (32.0-36.5); MEAN CORPUSCULAR VOLUME 97.9 fl (80.0-96.0); MONO # 0.6 10^3/uL (0.0-0.8); MONO % 8.5 % (2.0-8.0); NEUTROPHILS # 4.1 10^3/uL (1.5-8.5); NEUTROPHILS % 59.4 % (36.0-66.0); PLATELET COUNT, AUTOMATED 213 10^3/uL (150-450); RED BLOOD COUNT 4.69 10^6/uL (4.30-6.10)
[2024-06-22 18:43] LABS: ERYTHROCYTE SEDIMENTATION RATE 32 mm/hr (0-15)
[2024-06-22 18:49] LABS: ALBUMIN 3.7 G/DL (3.2-5.2); ALKALINE PHOSPHATASE 100 U/L (40-129); ALT/SGPT 66 U/L (7.0-40); AST/SGOT 28 U/L (<34); BILIRUBIN,DIRECT < 0.1 MG/DL (<0.4); BILIRUBIN,TOTAL 0.3 MG/DL (0.3-1.2); BLOOD UREA NITROGEN 13 MG/DL (9-23); C REACTIVE PROTEIN QUANTITATIV < 0.50 MG/DL (<1.0); CALCIUM LEVEL 8.6 MG/DL (8.5-10.1); CARBON DIOXIDE LEVEL 28 MMOL/L (20-31); CHLORIDE LEVEL 102 MMOL/L (98-107); CREATININE FOR GFR 0.85 MG/DL (0.70-1.30); GLOMERULAR FILTRATION RATE > 90.0 (>60); GLUCOSE, FASTING 137 MG/DL (60-100); POTASSIUM SERUM 4.2 MMOL/L (3.5-5.1); SODIUM LEVEL 141 MMOL/L (136-145); TOTAL PROTEIN 7.1 G/DL (5.7-8.2)
== END ==
LOC: M WUC 15:41
PROVIDERS: ATTEND Internal Medicine
DX: M06.09 Rheumatoid arthritis without rheumatoid factor, multiple sites (principal)

== ENCOUNTER 2024-07-10 11:00 | Day surgery (SDC) | payer OTHER ==
[~2024-07-10] VITALS: Ht 195.6 cm; Wt 157.0 kg
[~2024-07-10 11:00] MED LIST changes: -AMLO1TAB25; +AMLO1TAB25 PO; -ATOM25CA7; +ATOM25CA7 PO; -BENA25TA5; +BENA25TA5 PO; -FLAX100020 PO; +FOLI1TAB11 PO; -GLYC1TAB18; +GLYC1TAB18 PO; +HUMI40IN2 SC; -HYDR200T46; +HYDR200T46 PO; -IMIP50TA10; +IMIP50TA10 PO; -LAMO100T3; +LAMO100T3 PO; +METH25IN12 SC; +NAPR-885 PO; -OMEP-173; +OMEP-173 PO; -PRAV20TA2; +PRAV20TA2 PO; -PROP10TA56; +PROP10TA56 PO; -QUET100T2; +QUET100T2 PO; -SERT25TA21; +SERT25TA21 PO; -SILD100T; +SILD100T PO; +SM F PO; -VALS1TAB68; +VALS1TAB68 PO
[2024-07-10 12:55] VITALS: BP 111/60; O2SAT 95
[2024-07-10] MEDS ORDERED: propofoL 200 MG/20 ML VIAL As Ordered ONE (12:59)
== END 2024-07-10 13:18 | disposition home or self-care (01) ==
LOC: M OPP 11:00
PROVIDERS: ATTEND Surgery
DX: K64.0 First degree hemorrhoids (principal); K92.1 Melena; K29.70 Gastritis, unspecified, without bleeding; R13.10 Dysphagia, unspecified; G47.30 Sleep apnea, unspecified; Z88.8 Allergy status to other drugs, medicaments and biological substances; Z91.040 Latex allergy status; Z79.82 Long term (current) use of aspirin; Z79.51 Long term (current) use of inhaled steroids; Z79.891 Long term (current) use of opiate analgesic; Z79.899 Other long term (current) drug therapy

== ENCOUNTER → 2024-09-14 | Outpatient (CLI) | payer OTHER ==
[~2024-09-14] MED LIST changes: +E-Z-GAS II EFFERVESCENT PACKET (SODIUM BICARB./CITRIC ACID/SIMETHICONE) As Ordered ONE; +E-Z-HD 98% w/w 340 GM SUSP BTL As Ordered ONE; +E-Z-PAQUE 96% w/w SUSP 176 GM BTL As Ordered ONE; -PRAV20TA2 PO; +PRAV20TA78 PO
== END ==
LOC: M RAD 09:11
PROVIDERS: ATTEND Physician Assistant
DX: R13.10 Dysphagia, unspecified (principal)

== ENCOUNTER → 2024-09-14 | Outpatient (CLI) | payer OTHER ==
[~2024-09-14] MED LIST changes: -E-Z-GAS II EFFERVESCENT PACKET (SODIUM BICARB./CITRIC ACID/SIMETHICONE) As Ordered ONE; -E-Z-HD 98% w/w 340 GM SUSP BTL As Ordered ONE; -E-Z-PAQUE 96% w/w SUSP 176 GM BTL As Ordered ONE
[2024-09-14 12:01] LABS: BASO # 0.1 10^3/uL (0.0-0.2); BASO % 1.2 % (0.0-1.0); EOS # 0.1 10^3/uL (0.0-0.5); EOS % 1.9 % (0.0-3.0); LYMPH # 2.1 10^3/uL (1.5-5.0); LYMPH % 30.9 % (24.0-44.0); MONO # 0.6 10^3/uL (0.0-0.8); MONO % 8.7 % (2.0-8.0); NEUTROPHILS # 3.9 10^3/uL (1.5-8.5); NEUTROPHILS % 56.7 % (36.0-66.0); PLATELET COUNT, AUTOMATED 223 10^3/uL (150-450)
[2024-09-14 12:39] LABS: ALT/SGPT 71 U/L (7.0-40); AST/SGOT 44 U/L (<34); CALCIUM LEVEL 9.2 MG/DL (8.5-10.1); CARBON DIOXIDE LEVEL 31 MMOL/L (20-31); CHLORIDE LEVEL 102 MMOL/L (98-107); CHOLESTEROL LEVEL 197 MG/DL (<200); CHOLESTEROL RISK RATIO 4.37 (<5); CREATININE FOR GFR 0.70 MG/DL (0.70-1.30); GLOMERULAR FILTRATION RATE > 90.0 (>60); LDL CHOLESTEROL 94.6 MG/DL (<100); NON-HDL-C 152.0 MG/DL; POTASSIUM SERUM 4.8 MMOL/L (3.5-5.1); SODIUM LEVEL 144 MMOL/L (136-145); TRIGLYCERIDES LEVEL 287 MG/DL (<150)
[2024-09-14 12:40] LABS: FREE T4 0.99 NG/DL (0.89-1.76)
[2024-09-14 13:39] LABS: ESTIMATED AVERAGE GLUCOSE 126.0 MG/DL (60-110)
== END ==
LOC: M LAB 09:17
PROVIDERS: ATTEND Physician Assistant
DX: Z13.29 Encounter for screening for other suspected endocrine disorder (principal); R00.0 Tachycardia, unspecified; E78.2 Mixed hyperlipidemia

== ENCOUNTER → 2024-09-14 | Outpatient (CLI) | payer OTHER ==
[2024-09-14 12:03] LABS: BASO # 0.1 10^3/uL (0.0-0.2); BASO % 1.2 % (0.0-1.0); EOS # 0.1 10^3/uL (0.0-0.5); EOS % 1.6 % (0.0-3.0); LYMPH # 2.1 10^3/uL (1.5-5.0); LYMPH % 30.8 % (24.0-44.0); MONO # 0.6 10^3/uL (0.0-0.8); MONO % 8.8 % (2.0-8.0); NEUTROPHILS # 4.0 10^3/uL (1.5-8.5); NEUTROPHILS % 57.2 % (36.0-66.0); PLATELET COUNT, AUTOMATED 210 10^3/uL (150-450)
[2024-09-14 12:13] LABS: ERYTHROCYTE SEDIMENTATION RATE 37 mm/hr (0-15)
[2024-09-14 12:36] LABS: C REACTIVE PROTEIN QUANTITATIV 0.51 MG/DL (<1.0)
[2024-09-14 12:38] LABS: ALT/SGPT 72 U/L (7.0-40); AST/SGOT 41 U/L (<34); CALCIUM LEVEL 9.1 MG/DL (8.5-10.1); CARBON DIOXIDE LEVEL 31 MMOL/L (20-31); CHLORIDE LEVEL 102 MMOL/L (98-107); CREATININE FOR GFR 0.68 MG/DL (0.70-1.30); GLOMERULAR FILTRATION RATE > 90.0 (>60); POTASSIUM SERUM 4.4 MMOL/L (3.5-5.1); SODIUM LEVEL 144 MMOL/L (136-145)
== END ==
LOC: M LAB 09:14
PROVIDERS: ATTEND Internal Medicine
DX: M06.09 Rheumatoid arthritis without rheumatoid factor, multiple sites (principal)

== ENCOUNTER → 2024-10-05 | Outpatient (CLI) | payer OTHER ==
[2024-10-05 15:30] LABS: ALT/SGPT 69 U/L (7.0-40); AST/SGOT 38 U/L (<34); BASO # 0.1 10^3/uL (0.0-0.2); BASO % 1.2 % (0.0-1.0); CALCIUM LEVEL 8.9 MG/DL (8.5-10.1); CARBON DIOXIDE LEVEL 27 MMOL/L (20-31); CHLORIDE LEVEL 106 MMOL/L (98-107); CREATININE FOR GFR 0.74 MG/DL (0.70-1.30); EOS # 0.2 10^3/uL (0.0-0.5); EOS % 2.4 % (0.0-3.0); GLOMERULAR FILTRATION RATE > 90.0 (>60); LYMPH # 2.7 10^3/uL (1.5-5.0); LYMPH % 32.4 % (24.0-44.0); MONO # 0.7 10^3/uL (0.0-0.8); MONO % 8.1 % (2.0-8.0); NEUTROPHILS # 4.6 10^3/uL (1.5-8.5); NEUTROPHILS % 55.3 % (36.0-66.0); PLATELET COUNT, AUTOMATED 233 10^3/uL (150-450); POTASSIUM SERUM 4.2 MMOL/L (3.5-5.1); SODIUM LEVEL 145 MMOL/L (136-145)
[2024-10-05 15:33] LABS: C REACTIVE PROTEIN QUANTITATIV < 0.50 MG/DL (<1.0)
[2024-10-05 15:37] LABS: ERYTHROCYTE SEDIMENTATION RATE 42 mm/hr (0-15)
== END ==
LOC: M WUC 10:44
PROVIDERS: ATTEND Internal Medicine
DX: M06.09 Rheumatoid arthritis without rheumatoid factor, multiple sites (principal)

== ENCOUNTER → 2024-11-30 | Outpatient (CLI) | payer OTHER ==
[~2024-11-30] MED LIST changes: +ZOLP10TA11; -ZOLP10TA2
[2024-11-30 17:27] LABS: BASO # 0.1 10^3/uL (0.0-0.2); BASO % 1.0 % (0.0-1.0); EOS # 0.1 10^3/uL (0.0-0.5); EOS % 1.7 % (0.0-3.0); LYMPH # 2.7 10^3/uL (1.5-5.0); LYMPH % 32.6 % (24.0-44.0); MONO # 0.7 10^3/uL (0.0-0.8); MONO % 8.5 % (2.0-8.0); NEUTROPHILS # 4.6 10^3/uL (1.5-8.5); NEUTROPHILS % 55.7 % (36.0-66.0); PLATELET COUNT, AUTOMATED 212 10^3/uL (150-450)
[2024-11-30 17:51] LABS: C REACTIVE PROTEIN QUANTITATIV 0.58 MG/DL (<1.0); ERYTHROCYTE SEDIMENTATION RATE 53 mm/hr (0-15)
[2024-11-30 17:56] LABS: ALT/SGPT 65 U/L (7.0-40); AST/SGOT 34 U/L (<34); CALCIUM LEVEL 9.3 MG/DL (8.5-10.1); CARBON DIOXIDE LEVEL 29 MMOL/L (20-31); CHLORIDE LEVEL 100 MMOL/L (98-107); CREATININE FOR GFR 0.93 MG/DL (0.70-1.30); GLOMERULAR FILTRATION RATE > 90.0 (>60); POTASSIUM SERUM 4.0 MMOL/L (3.5-5.1); SODIUM LEVEL 140 MMOL/L (136-145)
== END ==
LOC: M PLALAB 15:50
PROVIDERS: ATTEND Internal Medicine
DX: M06.09 Rheumatoid arthritis without rheumatoid factor, multiple sites (principal)

== ENCOUNTER → 2024-12-11 | Outpatient (CLI) | payer OTHER ==
[2024-12-11 18:40] LABS: CREATININE FOR GFR 0.77 MG/DL (0.70-1.30); GLOMERULAR FILTRATION RATE > 90.0 (>60)
== END ==
LOC: M LAB 16:08
PROVIDERS: ATTEND Otolaryngology
DX: E04.1 Nontoxic single thyroid nodule (principal)

== ENCOUNTER → 2024-12-11 | Outpatient (CLI) | payer OTHER ==
[2024-12-11 18:12] LABS: BASO # 0.1 10^3/uL (0.0-0.2); BASO % 0.8 % (0.0-1.0); EOS # 0.1 10^3/uL (0.0-0.5); EOS % 1.3 % (0.0-3.0); LYMPH # 1.9 10^3/uL (1.5-5.0); LYMPH % 30.1 % (24.0-44.0); MONO # 0.5 10^3/uL (0.0-0.8); MONO % 8.7 % (2.0-8.0); NEUTROPHILS # 3.7 10^3/uL (1.5-8.5); NEUTROPHILS % 58.9 % (36.0-66.0); PLATELET COUNT, AUTOMATED 219 10^3/uL (150-450)
[2024-12-11 18:41] LABS: ALT/SGPT 69 U/L (7.0-40); AST/SGOT 39 U/L (<34); C REACTIVE PROTEIN QUANTITATIV 0.69 MG/DL (<1.0); CALCIUM LEVEL 9.0 MG/DL (8.5-10.1); CARBON DIOXIDE LEVEL 30 MMOL/L (20-31); CHLORIDE LEVEL 104 MMOL/L (98-107); CREATININE FOR GFR 0.74 MG/DL (0.70-1.30); GLOMERULAR FILTRATION RATE > 90.0 (>60); POTASSIUM SERUM 4.1 MMOL/L (3.5-5.1); SODIUM LEVEL 144 MMOL/L (136-145)
[2024-12-11 20:17] LABS: ERYTHROCYTE SEDIMENTATION RATE 50 mm/hr (0-15)
== END ==
LOC: M LAB 16:11
PROVIDERS: ATTEND Internal Medicine
DX: M06.09 Rheumatoid arthritis without rheumatoid factor, multiple sites (principal)

== ENCOUNTER → 2024-12-14 | Outpatient (CLI) | payer OTHER ==
[~2024-12-14] MED LIST changes: +ISOVUE-370 76% 100 ML VIAL As Ordered ONE
== END ==
LOC: M RAD 15:33
PROVIDERS: ATTEND Otolaryngology
DX: E04.1 Nontoxic single thyroid nodule (principal); J39.8 Other specified diseases of upper respiratory tract; R59.0 Localized enlarged lymph nodes
CPT/HCPCS: 70491; Q9967

== ENCOUNTER → 2024-12-25 | Outpatient (CLI) | payer OTHER ==
[~2024-12-25] MED LIST changes: -ISOVUE-370 76% 100 ML VIAL As Ordered ONE
[2024-12-25 12:49] LABS: BASO # 0.1 10^3/uL (0.0-0.2); BASO % 1.1 % (0.0-1.0); EOS # 0.1 10^3/uL (0.0-0.5); EOS % 1.8 % (0.0-3.0); LYMPH # 2.8 10^3/uL (1.5-5.0); LYMPH % 38.4 % (24.0-44.0); MONO # 0.6 10^3/uL (0.0-0.8); MONO % 7.4 % (2.0-8.0); NEUTROPHILS # 3.8 10^3/uL (1.5-8.5); NEUTROPHILS % 50.9 % (36.0-66.0); PLATELET COUNT, AUTOMATED 211 10^3/uL (150-450)
[2024-12-25 12:53] LABS: ALT/SGPT 61 U/L (7.0-40); AST/SGOT 31 U/L (<34); C REACTIVE PROTEIN QUANTITATIV 0.59 MG/DL (<1.0); CALCIUM LEVEL 8.2 MG/DL (8.5-10.1); CARBON DIOXIDE LEVEL 29 MMOL/L (20-31); CHLORIDE LEVEL 102 MMOL/L (98-107); CREATININE FOR GFR 0.66 MG/DL (0.70-1.30); GLOMERULAR FILTRATION RATE > 90.0 (>60); POTASSIUM SERUM 3.6 MMOL/L (3.5-5.1); SODIUM LEVEL 141 MMOL/L (136-145)
== END ==
LOC: M WUC 10:05
PROVIDERS: ATTEND Internal Medicine
DX: M06.09 Rheumatoid arthritis without rheumatoid factor, multiple sites (principal)

== ENCOUNTER → 2025-02-09 | Outpatient (CLI) | payer OTHER ==
[~2025-02-09] VITALS: Ht 195.6 cm; Wt 158.8 kg
[~2025-02-09] MED LIST changes: +FLAX100030 PO; +MIDAZOLAM INJ 2 MG/2 ML VIAL As Ordered ONE; +ONDANSETRON 4MG/2ML VIAL As Ordered ONE; -SM F PO
[2025-02-09 10:10] VITALS: TEMP 97.2
[2025-02-09 13:00] VITALS: BP 121/80; O2SAT 96
== END ==
LOC: M RADPRO 09:54
PROVIDERS: ATTEND Physician Assistant
DX: G44.52 New daily persistent headache (NDPH) (principal)
CPT/HCPCS: 70544; 70551; J2250